=== PATIENT | male | born 1940 | race Caucasian/White ===

== ENCOUNTER → 2018-07-03 | Emergency (ER) | payer MEDICARE ==
[~2018-07-03] VITALS: Ht 167.6 cm; Wt 78.6 kg
[~2018-07-03] MED LIST: GLYB2.5T4 PO; METO25TA6 PO; OMEP20TA23 PO; OXYC10TA86 PO; PRED5TAB PO; glimepiride 1 MG tablet PO ONE; oxyCODONE SR 10mg (sust. release) tab PO ONE; pantoprazole 40mg Tablet.DR PO PRN
[2018-07-03 13:47] LABS: BASOPHILS % (AUTO) 0.3 % (0-1); EOSINOPHILS # (AUTO) 0.2 X10'3 (0-0.9); EOSINOPHILS % (AUTO) 1.8 % (0-6); HEMATOCRIT 42.8 % (42.0-52.0); HEMOGLOBIN 14.5 g/dl (14.0-17.9); LYMPHOCYTES # (AUTO) 1.1 X10'3 (1.1-4.8); MEAN CORPUSCULAR HEMOGLOBIN 31.2 PG (27.0-31.0); MEAN CORPUSCULAR VOLUME 91.9 FL (78-98); MEAN PLATELET VOLUME 7.1 FL (7.4-10.4); MONOCYTES # (AUTO) 1.1 X10'3 (0-0.9); NEUTROPHILS # (AUTO) 6.2 X10'3 (1.8-7.7); NEUTROPHILS % (AUTO) 71.9 % (42-75); PLATELET COUNT 286 X10'3 (140-440); RED BLOOD COUNT 4.66 X10'6 (4.70-6.10); RED CELL DISTRIBUTION WIDTH 14.2 % (11.5-14.5); WHITE BLOOD COUNT 8.6 X10'3 (4.5-11.0)
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
[2018-07-03 13:56] LABS: ALANINE AMINOTRANSFERASE 42 U/L (12-78); ALBUMIN 3.7 G/DL (3.4-5.0); ALBUMIN/GLOBULIN RATIO 1.2 (1.1-1.5); ALKALINE PHOSPHATASE 71 IU/L (46-116); ANION GAP 10 (8-16); ASPARTATE AMINO TRANSFERASE 34 U/L (10-37); BILIRUBIN,TOTAL 0.8 MG/DL (0.1-1.0); BLOOD UREA NITROGEN 8 MG/DL (7-18); BUN/CREATININE RATIO 11.4 (5.4-32.0); CALCIUM 9.2 MG/DL (8.5-10.1); CHLORIDE 101 MMOL/L (99-107); ETHANOL < 0.010 GM/DL (0.0-0.010); GLUCOSE 143 MG/DL (70-104); POTASSIUM 3.4 MMOL/L (3.5-5.1); SODIUM 139 MMOL/L (135-145); TOTAL CARBON DIOXIDE 28.5 MMOL/L (24-32); TOTAL PROTEIN 6.7 G/DL (6.4-8.2); eGFR > 90 ML/MIN
[2018-07-03 14:47] LABS: URINE AMPHETAMINE SCREEN NEGATIVE (Neg); URINE BARBITUATE SCREEN NEGATIVE (Neg); URINE BENZODIAZEPINES SCREEN NEGATIVE (Neg); URINE CANNABINOID SCREEN NEGATIVE (Neg); URINE COCAINE SCREEN NEGATIVE (Neg); URINE METHADONE SCREEN NEGATIVE (Neg); URINE OPIATE SCREEN POSITIVE (Neg); URINE PHENCYCLIDINE SCREEN NEGATIVE (Neg)
--- NOTE | 2018-07-03 15:57 | NUR ---
TELEPSYCH CONSULT INITIATED
--- NOTE | 2018-07-03 17:04 | NUR ---
PT CURRENTLY SLEEPING. NO SIGNS OF DISTRESS NOTED. RESP EVEN/UNLABORED.
--- NOTE | 2018-07-03 17:49 | NUR ---
Nursing Note: Pt transferred to bed 20 at 1740. Pt in green scrubs. Pt currently speaking with telepsych Dr. Green S&S of distress, will continue to monitor.
--- NOTE | 2018-07-03 18:11 | NUR ---
Nursing Note: Telepsych complete, awaiting report. Pt laying in bed with eyes closed, respirations even and unlabored, no S&S of distress, will continue to monitor.
--- NOTE | 2018-07-04 02:44 | NUR ---
pt awake c/o back pain. oxycodone one tab given.
--- NOTE | 2018-07-04 03:40 | NUR ---
pt awake, resting quietly in bed.
[2018-07-04] MEDS: oxyCODONE SR 10mg (sust. release) tab PO SCH ×3 (07:51→20:25)
[2018-07-04] MEDS: metoprolol tartrate 25mg tablet PO SCH ×2 (07:51→20:25)
[2018-07-04] MEDS: predniSONE 5mg tablet PO SCH (07:51)
--- NOTE | 2018-07-04 09:52 | NUR ---
Pt. woke up easily to take meds and eat breakfast.
--- NOTE | 2018-07-04 11:32 | NUR ---
Pt. lying supine in bed with even and unlabored respirations.
--- NOTE | 2018-07-04 14:44 | NUR ---
Pt. given a walker to use while here.
--- NOTE | 2018-07-04 20:00 | NUR ---
pt denies sucidial ideation. pt denies homicidial ideation. pt denies hallucinations. will continue to monitor.
--- NOTE | 2018-07-04 23:57 | NUR ---
pt resting, eyes closed. no signs of distress. will continue to monitor.
--- NOTE | 2018-07-05 00:34 | NUR ---
Pt awake, moderately confused and paranoid AEB his saying, "there are people out there trying to get me. Am I safe? Do they know I'm here?" Reassurance and reorientation provided. Pt redirected to bed.
--- NOTE | 2018-07-05 02:10 | NUR ---
pt getting out of bed. wanting to use urinal. using urinal at the side of bed. no signs of distress.
--- NOTE | 2018-07-05 02:36 | NUR ---
packet faxed to [facility]
--- NOTE | 2018-07-05 04:58 | NUR ---
pt resting in bed, eyes closed. unlabored and even breathing. will continue to monitor.
--- NOTE | 2018-07-05 07:27 | NUR ---
Pt. lying supine in bed with even and unlabored respirations with eyes closed.
[2018-07-05] MEDS: oxyCODONE SR 10mg (sust. release) tab PO SCH ×3 (07:46→20:13)
[2018-07-05] MEDS: metoprolol tartrate 25mg tablet PO SCH ×2 (07:47→20:12)
[2018-07-05] MEDS: predniSONE 5mg tablet PO SCH (07:47)
--- NOTE | 2018-07-05 08:15 | NUR ---
RN obtained order from Dr. Adair for Zyprexa 2.5mg PO QHS as was recommended by tele psych consult.
--- NOTE | 2018-07-05 11:13 | NUR ---
Pt. states he takes Glyburide daily. BG 180 right now. Med. added to med. rec. Will ask TREY SANDOVAL to continue med. while pt's here.
--- NOTE | 2018-07-05 13:05 | NUR ---
Son just visited pt. for a short time.
--- NOTE | 2018-07-05 18:23 | NUR ---
Patient is sitting on side of bed eating dinner w/o problem. I will continue to monitor.
[2018-07-05] MEDS: OLANZapine 2.5MG tablet PO SCH (20:13)
[2018-07-06] MEDS: oxyCODONE SR 10mg (sust. release) tab PO SCH ×3 (07:38→20:14)
[2018-07-06] MEDS: glimepiride 1 MG tablet PO SCH (07:39)
[2018-07-06] MEDS: predniSONE 5mg tablet PO SCH (07:40)
[2018-07-06] MEDS: metoprolol tartrate 25mg tablet PO SCH ×2 (07:42→19:18)
--- NOTE | 2018-07-06 18:50 | NUR ---
GAVE REPORT TO MADHAVI FRANKLIN
--- NOTE | 2018-07-06 19:52 | NUR ---
PATIENT RESTING IN BED AT THIS TIME. PATIENT AMBULATES WITH FRONT WHEELED WALKER. PATIENT HAS URINAL AT BEDSIDE. PATIENT EATING BANANA. PATIENT GIVEN 2000 DOSE OF METOPROLOL.
[2018-07-06] MEDS: OLANZapine 2.5MG tablet PO SCH (20:14)
--- NOTE | 2018-07-06 23:17 | NUR ---
Patient sleeping in bed. No concerns or needs at this time. Will continue to monitor.
--- NOTE | 2018-07-07 01:01 | NUR ---
Patient sleeping. No new needs or concerns. Will continue to monitor.
--- NOTE | 2018-07-07 02:47 | NUR ---
Patient sleeping. No changes.
--- NOTE | 2018-07-07 05:15 | NUR ---
Patient sleeping. No changes.
[2018-07-07] MEDS: glimepiride 1 MG tablet PO SCH (08:11)
[2018-07-07] MEDS: predniSONE 5mg tablet PO SCH (08:11)
[2018-07-07] MEDS: metoprolol tartrate 25mg tablet PO SCH ×2 (08:11→20:05)
[2018-07-07] MEDS: oxyCODONE SR 10mg (sust. release) tab PO SCH ×3 (08:11→20:05)
--- NOTE | 2018-07-07 08:14 | NUR ---
PT IS SITTING UP AT BEDSIDE EATING BREAKFAST, PT MEDICATED WITH MORNING MEDICATIONS PER ORDERES, FIRST MEDICATED PT WITH OXYCONTIN 10 MG, SHOWED PT UNOPENED PACKAGE OF OXYCONTIN AND OPENED MEDICATION IN FRONT OF PT PT BELIEVES HE HAS NOT BEEN GETTING THIS MEDICATION PREVIOULSY.
--- NOTE | 2018-07-07 09:30 | NUR ---
PT SLEEPING, RESPIRATIONS SPONTANEOUS, EVEN AND UNLABORED, NO S/S OF DISTRESS, DISCOMFORT, OR AGITATION AT THIS TIME
--- NOTE | 2018-07-07 10:54 | NUR ---
PT SISTER IS AT BEDSIDE NOW VISITING. PT GIVEN NEW SCRUB OUTFIT PER REQUEST, PT TO CHANGE AFTER DONE VISITING WITH SISTER
--- NOTE | 2018-07-07 12:33 | NUR ---
RELIEVING RN FOR LUNCH, PT IS RESTING QUIETLY ON BED, CALM AND COOPERATIVE, EMPTIED URINAL 500ML OF YELLOW URINE
--- NOTE | 2018-07-07 14:30 | NUR ---
PT SLEEPING, RESPIRATIONS SPONTANEOUS, EVEN AND UNLABORED, NO S/S OF DISTRESS, DISCOMFORT, OR AGITATION AT THIS TIME
--- NOTE | 2018-07-07 16:09 | NUR ---
PT AWAKE ASKED FOR PHONE TO BE PLACED IN ROOM, PLACED PHONE IN ROOM, ALSO MEDICATED PT FOR PAIN PER ORDERS OXYCONTIN 10 MG
[2018-07-07 17:14] VITALS: BP_DIAS 81
--- NOTE | 2018-07-07 18:31 | NUR ---
Patient is A&Ox3, SO and is appropriate at this time. He sitting on side of bed eating dinner w/o problem, I will continue to monitor.
[2018-07-07 20:05] VITALS: BP_SYST 155
[2018-07-07] MEDS: OLANZapine 2.5MG tablet PO SCH (20:05)
== END ==
LOC: ER 13:18
DX: F29 Unspecified psychosis not due to a substance or known physiological condition (principal); F22 Delusional disorders; R45.851 Suicidal ideations; F32.9 Major depressive disorder, single episode, unspecified; I10 Essential (primary) hypertension; K21.9 Gastro-esophageal reflux disease without esophagitis; E11.9 Type 2 diabetes mellitus without complications; Z98.61 Coronary angioplasty status; Z79.899 Other long term (current) drug therapy
CPT/HCPCS: 36415; 80053; 80305; 80320; 82948; 85025; 99285; J7512

== ENCOUNTER 2018-07-09 11:00 | Inpatient (IN) | payer MEDICARE, OTHER ==
[~2018-07-09] VITALS: Ht 162.6 cm; Wt 77.4 kg
[~2018-07-09 11:00] MED LIST changes: -glimepiride 1 MG tablet PO ONE; -oxyCODONE SR 10mg (sust. release) tab PO ONE; -pantoprazole 40mg Tablet.DR PO PRN
[2018-07-09] MEDS ORDERED: OLAN2.5T3 PO (11:49)
[2018-07-09] MEDS ORDERED: tuberculin, purif. prot. deriv. 5 units/0.1ml ID ONE (11:50)
[2018-07-09] MEDS ORDERED: LORazepam 1 MG tablet PO PRN ×2 (11:50)
[2018-07-09] MEDS ORDERED: magnesium hydroxide 30ml (MOM) UD suspension PO PRN (11:50)
[2018-07-09] MEDS ORDERED: acetaminophen 325mg tablet PO PRN ×2 (11:50)
[2018-07-09] MEDS ORDERED: haloperidol 5mg tablet PO PRN (11:50)
[2018-07-09] MEDS ORDERED: mag hydrox/Alum hydrox/simeth 30ml oral suspension PO PRN (11:50)
[2018-07-09] MEDS ORDERED: diphenhydrAMINE 25mg capsule PO PRN (12:05)
--- NOTE | 2018-07-09 15:24 | NUR ---
Admit note: Pt [facility] by Dr Hanks at 1245 for Depression and suicidal ideation. Pt has history of DM II, heart stent, GERD, depression, paranoia. Pt oriented to the unit. Pts belongings inventoried. Pt admitted on 5150 for danger to self. Pt had made statements of self harm. Pt called the suicide hotline. Pt uses a walker to ambulate.
[2018-07-09] MEDS: oxyCODONE SR 10mg (sust. release) tab PO SCH ×2 (15:42→21:31)
[2018-07-09 16:33] VITALS: BP 146/86
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
[2018-07-09 20:00] VITALS: BP 117/74
[2018-07-09] MEDS ORDERED: OLANZapine 2.5MG tablet PO SCH (21:00)
[2018-07-09] MEDS: OLANZapine 2.5MG tablet PO SCH (21:32)
[2018-07-09] MEDS: metoprolol tartrate 25mg tablet PO SCH (21:32)
--- NOTE | 2018-07-10 00:34 | NUR ---
Nursing Progress Note Legal hold: 5150 Danger to self Client on voluntary/involuntary status for GD/DTS/DTO: DTS Report received from nurse with use of SBAR: MADHAVI Guadalupe Why are they here: The patient was found to be having delusional thoughts about family members trying to kill him, breaking into his house and beating on the wall outside his home. He called [place] [employer] multiple times per day and also the [place] hotline stating he was suicidal. Assessment What has happened this shift: Patient is in his room in bed at the change of shift. He agrees to a 1:1 assessment at his bedside. He confirms feelings of depression and anxiety. He states some of the anxiety today is from moving to the unit and getting used to it. He denies SI/HI, AH/VH. However when asked how he liked the unit and if he felt safe here patient stated "It's nice, I like all the cartoon characters on the ceiling, it gives me something to look at." Patient remained in his room the rest of the shift. He was compliant with all his evening medications. S/I, H/I: Denies A/VH: Denies Sleep: Currently sleeping, see sleep assessment ADL's: Needs some help/setup Group attendance: No groups this shift Were meds taken: Yes Any med S/E: None Mental Status Exam Appearance: Disheveled, wearing green scrubs, un-groomed hair Eye contact: Good Behavior: Cooperative Speech: Normal rate, volume, rhythm Mood: Depressed Affect: Mild anxiety Thought process: Circumstantial Thought Content: Adjusting to new unit, delusions about cartoon characters being on the ceiling Cognition:A&Ox3 Insight: Poor Judgment: Poor Interventions PRN's used: None Therapeutic interventions: 1:1 assessment with patient, provided active listening, maintained a safe and therapeutic environment to help establish rapport. Monitored patients behavior. Educated patient on medications and medication regimen. Monitored for side effects of medications. Maintained Q 15 minute checks for safety. Restraints/seclusion/emergency medication:None Justification of Continued Inpatient Treatment: Patient has recent suicidal ideation and made numerous calls to [place] hotline stating depression and wanting to harm self. Needs therapeutic environment and medication adjustments to stabilize current crisis.
[2018-07-10] MEDS ORDERED: pantoprazole 40mg Tablet.DR PO PRN (07:30)
[2018-07-10 07:38] LABS: HEMOGLOBIN A1C 6.8 % (4.5-6.2)
[2018-07-10 08:15] VITALS: BP 96/59
[2018-07-10 08:16] VITALS: BP 104/66
[2018-07-10] MEDS: glimepiride 1 MG tablet PO SCH (08:24)
[2018-07-10] MEDS: predniSONE 5mg tablet PO SCH (08:24)
[2018-07-10] MEDS: metoprolol tartrate 25mg tablet PO SCH ×2 (08:24→20:34)
[2018-07-10] MEDS: oxyCODONE SR 10mg (sust. release) tab PO SCH ×3 (08:24→20:32)
--- NOTE | 2018-07-10 17:17 | NUR ---
Nursing Progress Note Legal hold: 5150 danger to self Client on voluntary/involuntary status for GD/DTS/DTO: DTS Report received from Zora with use of SBAR Why are they here: The patient was found to be having delusional thoughts about family members trying to kill him, breaking into his house and beating on the wall outside his home. He called [place] [employer] multiple times per day and also the [place] hotline stating he was suicidal. Assessment What has happened this shift: Patient was up to breakfast, took all medications and is eating well. Depressed mood with a constricted affect. Multiple phone calls from family who is supportive. He has a delusion that squatters are living in his home and a family friend is trying to poison him. He states he feels safe here but can't articulate why he is here. Tangential thoughts: The Landlord calls about the rent, Itzel Esqueda is trying to help multiple families with housing near him in [facility] , he lived in [place] and got dysentery and a DDT exposure, saw [employer] and also looked up into the sun and saw the [employer]. Denies suicidal thoughts. He was able to take a shower himself today and was up and about on unit. S/I, H/I: Denies A/VH: Denies Sleep: Napped ADL's: Needs some help/setup Group attendance: Yes Were meds taken: Yes Any med S/E: None Mental Status Exam Appearance: disheveled Eye contact: Poor Behavior: Cooperative Speech: Clear and soft Mood: Depressed Affect: Constricted Thought process: Circumstantial Thought Content: paranoid delusion, tangential Cognition:A&Ox3 Insight: Poor Judgment: Poor Interventions PRN's used: None Therapeutic interventions: 1:1 assessment, q15m safety checks, medications as ordered, reassurance, orientation to unit. Restraints/seclusion/emergency medication:None Justification of Continued Inpatient Treatment: Patient has recent suicidal ideation and made numerous calls to [place] hotline stating depression and wanting to harm self. Needs therapeutic environment and medication adjustments to stabilize current crisis.
--- NOTE | 2018-07-10 17:58 | NUR ---
Abnormal lab: Lab called. Pt's nasal swab found pt to have MRSA. Pt notified and given instructions on hand washing to prevent infections. Pt states understanding.
[2018-07-10 20:02] VITALS: BP 129/80
[2018-07-10] MEDS: OLANZapine 2.5MG tablet PO SCH (20:31)
--- NOTE | 2018-07-11 00:34 | NUR ---
RN PROGRESS NOTE: Legal hold: 5150. Client on involuntary status for DTS. Report received from nurse with use of SBAR: MADHAVI Guadalupe Why are they here: The patient was reportedly having suicidal and delusional thoughts. Per [employer], the patient repeatedly called the [employer] hotline stating he's suicidal. He was also calling 911 many times. [employer] brought him here to the ER for help with his depression and delusions. He was paranoid and thinking that his family members are trying to poison him, so they can take his house from him. Assessment: What has happened this shift: The patient was found in his room for 1:1. He agreed to assessment at bedside. The patient reports that he believes that his family members are trying to poison him to get rid of him He believes that they are trying to get his house. He also states he was hearing banging, "I thought someone was trying to break into my room. I gotta get my thinking figured out, I'm a little paranoid." The patient admits to making statements of suicidal ideation, but is now denying SI. He reports that he feels safe here, "good mood, good food, and good conversation." The patient had a visitor this evening. After she left, he went to bed. On the way to bed, he asked this nurse, "how long am I going to be here? I have bills to pay." S/I, H/I: Denies A/VH: Denies Sleep: States that he sleeps good ADL's: Mostly independent, needs setup help and prompting. Group attendance: No groups this shift Were meds taken: Yes. Any med S/E: None noted. Mental Status Exam: Appearance: Disheveled, wearing black sweatshirt and green scrubs, un-groomed hair, unshaved. Eye contact: Good Behavior: Cooperative, wnl. Speech: Normal rate, volume, rhythm Mood: Depressed Affect: Blunted. Thought process: Circumstantial Thought Content: Preoccupied with getting home. Cognition:A&Ox3 Insight: Poor Judgment: Poor Interventions: PRN's used: None. Therapeutic interventions: 1:1 assessment with patient, provided active listening, maintained a safe and therapeutic environment to help establish rapport. Monitored patients behavior. Educated patient on medications and medication regimen. Monitored for side effects of medications. Maintained Q 15 minute checks for safety. Restraints/seclusion/emergency medication: None. Justification of Continued Inpatient Treatment: Patient has recent suicidal ideation and made numerous calls to [place] hot[place] stating depression and wanting to harm self. Needs therapeutic environment and medication adjustments to stabilize current crisis.
[2018-07-11 08:00] VITALS: BP 136/87
[2018-07-11] MEDS: glimepiride 1 MG tablet PO SCH (08:33)
[2018-07-11] MEDS: atorvastatin 10mg tablet PO SCH (08:33)
[2018-07-11] MEDS: lisinopril 2.5mg tablet PO SCH (08:33)
[2018-07-11] MEDS: metoprolol tartrate 25mg tablet PO SCH ×2 (08:33→20:39)
[2018-07-11] MEDS: oxyCODONE SR 10mg (sust. release) tab PO SCH ×3 (08:34→20:39)
[2018-07-11] MEDS: aspirin 81mg tab.chew PO SCH (08:35)
[2018-07-11] MEDS: predniSONE 5mg tablet PO SCH (09:00)
--- NOTE | 2018-07-11 16:50 | NUR ---
NURSING PROGRESS NOTE Legal hold: 5150 DTS Client on involuntary status Report received from MADHAVI Miller with use of SBAR Why are they here: The patient was found to be having delusional thoughts about family members trying to kill him, breaking into his house and beating on the wall outside his home. He called [place] [employer] multiple times per day and also the [place] hotline stating he was suicidal. Assessment What happened this shift? Pt up for all meals and medication compliant. He engages w/peers during meals and groups. He took a shower. Napped on and off throughout the day. S/I, H/I: Denies A/VH: Denies Sleep: Napped ADL's: Some assistance Group attendance: Y Were Meds taken: Y Any med S/E: None noted or reported Mental Status Exam Appearance: Showered Eye contact: Poor Behavior: Cooperative Speech: Clear and soft Mood: Depressed Affect: Constricted Thought process: linear Thought Content: goal-directed Cognition:A&Ox3 Insight: Poor Judgment: Poor Interventions PRN's used: Tylenol Therapeutic interventions: 1:1 assessment with patient, provided therapeutic communication and active listening, maintained a safe and therapeutic environment. Monitored patients behavior. Educated patient on medications and medication regimen. Monitored for side effects of medications. Encouraged groups and independent ADL's. Monitored Q 15 minute checks for safety. Restraints/seclusion/emergency medication:None Justification of Continued Inpatient Treatment: Patient has recent suicidal ideation and made numerous calls to [place] hotline stating depression and wanting to harm self. Needs therapeutic environment and medication adjustments to stabilize current crisis.
[2018-07-11 20:00] VITALS: BP 103/61
[2018-07-11] MEDS: OLANZapine 2.5MG tablet PO SCH (20:39)
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
[2018-07-12] MEDS: glimepiride 1 MG tablet PO SCH (07:33)
[2018-07-12] MEDS: atorvastatin 10mg tablet PO SCH (07:34)
[2018-07-12] MEDS: metoprolol tartrate 25mg tablet PO SCH ×2 (07:34→20:39)
[2018-07-12] MEDS: oxyCODONE SR 10mg (sust. release) tab PO SCH ×3 (07:34→20:39)
[2018-07-12] MEDS: lisinopril 2.5mg tablet PO SCH (07:35)
[2018-07-12 07:57] VITALS: BP 124/68
[2018-07-12] MEDS: aspirin 81mg tab.chew PO SCH (08:47)
[2018-07-12] MEDS: predniSONE 5mg tablet PO SCH (09:13)
--- NOTE | 2018-07-12 14:26 | NUR ---
NURSING PROGRESS NOTE Legal hold: Voluntary Client on voluntary status Report received from MADHAVI Miller with use of SBAR Why are they here: The patient was found to be having delusional thoughts about family members trying to kill him, breaking into his house and beating on the wall outside his home. He called [place] [employer] multiple times per day and also the [place] hot line stating he was suicidal. Assessment What happened this shift? Pt up for meals. Attended and participated in both groups. He signed in voluntarily. He discussed the desire to live in [place] and be able to get to his medical appointments. S/I, H/I: Denies A/VH: Denies Sleep: Sleeps during activities ADL's: Some assistance Group attendance: Y Were Meds taken: Y Any med S/E: None noted or reported Mental Status Exam Appearance: Remained in same clothing Eye contact: Poor Behavior: Cooperative Speech: Clear and soft Mood: Depressed Affect: Constricted Thought process: linear Thought Content: goal-directed Cognition:A&Ox3 Insight: Poor Judgment: Poor Interventions PRN's used: Tylenol Therapeutic interventions: 1:1 assessment with patient, provided therapeutic communication and active listening, maintained a safe and therapeutic environment. Monitored patients behavior. Educated patient on medications and medication regimen. Monitored for side effects of medications. Encouraged groups and independent ADL's. Monitored Q 15 minute checks for safety. Restraints/seclusion/emergency medication:None Justification of Continued Inpatient Treatment: Patient has recent suicidal ideation and made numerous calls to [place] hot line stating depression and wanting to harm self. Needs therapeutic environment and medication adjustments to stabilize current crisis.
[2018-07-12 20:00] VITALS: BP 103/67
[2018-07-12] MEDS: OLANZapine 2.5MG tablet PO SCH (20:38)
--- NOTE | 2018-07-12 21:57 | NUR ---
RN PROGRESS NOTE: Legal hold: 5150. Client on involuntary status for DTS. Report received from nurse with use of SBAR: MADHAVI Tipton Why are they here: The patient was reportedly having suicidal and delusional thoughts. Per [employer], the patient repeatedly called the [employer] stating he's suicidal. He was also calling 911 many times. [employer] brought him here to the ER for help with his depression and delusions. He was paranoid and thinking that his family members are trying to poison him, so they can take his house from him. Assessment: What has happened this shift: The patient was seen in his room. He was laying there waiting for his medication. He says that he's tired and going to sleep. He reports that his walker is working well. The patient states that he's doing well, "I'm just hanging out waiting for someone to find me some housing." The patient went to sleep right after HS med pass. S/I, H/I: Denies A/VH: Denies Sleep: States that he sleeps good ADL's: Mostly independent, needs setup help and prompting. Group attendance: No groups this shift Were meds taken: Yes. Any med S/E: None noted. Mental Status Exam: Appearance: Clean, unshaved, hair combed, wearing full green scrubs. Eye contact: Good Behavior: Cooperative, spent the evening in his room. Speech: Normal rate, volume, rhythm Mood: "Fair." Affect: Blunted. Thought process: Circumstantial Thought Content: Preoccupied with getting home. Cognition:A&Ox3 Insight: Poor Judgment: Poor Interventions: PRN's used: None. Therapeutic interventions: 1:1 assessment with patient, provided active listening, maintained a safe and therapeutic environment to help establish rapport. Monitored patients behavior. Educated patient on medications and medication regimen. Monitored for side effects of medications. Maintained Q 15 minute checks for safety. Restraints/seclusion/emergency medication: None. Justification of Continued Inpatient Treatment: Patient has recent suicidal ideation and made numerous calls to [email or web address] stating depression and wanting to harm self. Needs therapeutic environment and medication adjustments to stabilize current crisis.
[2018-07-13 07:33] VITALS: BP 123/64
[2018-07-13] MEDS: predniSONE 5mg tablet PO SCH (08:03)
[2018-07-13] MEDS: aspirin 81mg tab.chew PO SCH (08:03)
[2018-07-13] MEDS: atorvastatin 10mg tablet PO SCH (08:03)
[2018-07-13] MEDS: metoprolol tartrate 25mg tablet PO SCH ×2 (08:04→20:00)
[2018-07-13] MEDS: oxyCODONE SR 10mg (sust. release) tab PO SCH ×3 (08:04→21:38)
[2018-07-13] MEDS: glimepiride 1 MG tablet PO SCH (08:05)
[2018-07-13] MEDS: lisinopril 2.5mg tablet PO SCH (08:05)
--- NOTE | 2018-07-13 17:57 | NUR ---
NURSING PROGRESS NOTE Legal hold: Voluntary Client on voluntary status Report received from MADHAVI Miller with use of SBAR Why are they here: The patient was found to be having delusional thoughts about family members trying to kill him, breaking into his house and beating on the wall outside his home. He called [place] Police Dept multiple times per day and also the [place] hot line stating he was suicidal. Assessment What happened this shift: Recieved pt in bed resting w/o distress at change of shift. Cooperative and pleasant to speak with. Attended meals and groups and participated well with others and facilitators. Able to get along with roommate and have engagable conversations with him. BS at 1700 was 133. Watched other clients play a board game and enjoyed being around others. S/I, H/I: Denies A/VH: Denies Sleep: Slept 7.5 hrs last night ADL's: Some assistance Group attendance: Y Were Meds taken: Y Any med S/E: None noted or reported Mental Status Exam Appearance: Remained in same clothing Eye contact: Poor Behavior: Cooperative Speech: Clear and soft Mood: Depressed Affect: Constricted Thought process: linear Thought Content: goal-directed Cognition:A&Ox3 Insight: Poor Judgment: Poor Interventions PRN's used: Tylenol Therapeutic interventions: 1:1 assessment with patient, provided therapeutic communication and active listening, maintained a safe and therapeutic environment. Monitored patients behavior. Educated patient on medications and medication regimen. Monitored for side effects of medications. Encouraged groups and independent ADL's. Monitored Q 15 minute checks for safety. Restraints/seclusion/emergency medication:None Justification of Continued Inpatient Treatment: Patient has recent suicidal ideation and made numerous calls to [place] hot line stating depression and wanting to harm self. Needs therapeutic environment and medication adjustments to stabilize current crisis.
[2018-07-13 20:45] VITALS: BP 92/59
[2018-07-13] MEDS: OLANZapine 2.5MG tablet PO SCH (21:38)
--- NOTE | 2018-07-14 02:09 | NUR ---
NURSING PROGRESS NOTE Legal hold: Voluntary Client on voluntary status Report received from MADHAVI Kwon with use of SBAR Why are they here: The patient was found to be having delusional thoughts about family members trying to kill him, breaking into his house and beating on the wall outside his home. He called [place] Police [employer] multiple times per day and also the [place] hot line stating he was suicidal. Assessment What happened this shift: This patient was in the community room after change of shift. Patient is well oriented, he is conversing with other patients freely and smiling too. 1:1 Assessment: Patient is well oriented, he speaks clearly. Patient states he "feels a little sluggish." Patient states he has been using Neosporin on his feet and the cracks are improved. This patient laughs and is a little animated at times. Patient denies S/I, H/I, or any hallucinations. He states he is concerned about how to pay his bills as he has been unable to do so while he has been our unit. Patients granddaughter came in to visit, this patient expressed happiness about this. This patient hopes to discharge soon. This patient has been medication compliant until his [id number] medication administration which he refused and went to sleep. S/I, H/I: Denies A/VH: Denies Sleep: Sleeping well. ADL's: Some assistance Group attendance: Yes during days. Were Meds taken: Night time medications were declined. Any med S/E: None noted or reported Mental Status Exam Appearance: Remained in same clothing Eye contact: Poor Behavior: Cooperative Speech: Clear and soft Mood: Depressed Affect: Constricted Thought process: Linear Thought Content: Goal-directed Cognition: A&Ox3 Insight: Poor Judgment: Poor Interventions PRN's used: Tylenol Therapeutic interventions: 1:1 assessment with patient, provided therapeutic communication and active listening, maintained a safe and therapeutic environment. Monitored patients behavior. Educated patient on medications and medication regimen. Monitored for side effects of medications. Encouraged groups and independent ADL's. Monitored Q 15 minute checks for safety. Restraints/seclusion/emergency medication:None Justification of Continued Inpatient Treatment: Patient has recent suicidal ideation and made numerous calls to [place] hot line stating depression and wanting to harm self. Needs therapeutic environment and medication adjustments to stabilize current crisis.
[2018-07-14 08:00] VITALS: BP 127/69
[2018-07-14] MEDS: glimepiride 1 MG tablet PO SCH (08:09)
[2018-07-14] MEDS: predniSONE 5mg tablet PO SCH (08:09)
[2018-07-14] MEDS: metoprolol tartrate 25mg tablet PO SCH ×2 (08:10→20:34)
[2018-07-14] MEDS: atorvastatin 10mg tablet PO SCH (08:10)
[2018-07-14] MEDS: oxyCODONE SR 10mg (sust. release) tab PO SCH ×3 (08:10→20:33)
[2018-07-14] MEDS: lisinopril 2.5mg tablet PO SCH (08:10)
[2018-07-14] MEDS: aspirin 81mg tab.chew PO SCH (08:10)
--- NOTE | 2018-07-14 09:29 | NUR ---
1:1 DISCHARGE PLANNING SW made TC to pt's daughter, Marisol Reyes at [phone] and attempted to leave message for return contact. SW received voicemail message stating the mailbox had not been set up. SW will attempt a return contact at a later time. SPEEDY Culp
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
--- NOTE | 2018-07-14 16:30 | NUR ---
Patient has good appetite, eating well 100% PO intake of mechanical soft diet. Meeting nutrition needs. Will continue to follow per protocol. Recommend: 1. Continue mechanical soft diet 2. weekly wts Addendum: 07/14/18 at [address] Amended: Links added.
[2018-07-14 20:00] VITALS: BP 130/72
[2018-07-14] MEDS: OLANZapine 2.5MG tablet PO SCH (20:33)
--- NOTE | 2018-07-15 01:18 | NUR ---
NURSING PROGRESS NOTE Legal hold: Voluntary Client on voluntary status Report received from MADHAVI Kwon with use of SBAR Why are they here: The patient was found to be having delusional thoughts about family members trying to kill him, breaking into his house and beating on the wall outside his home. He called [place] Police [employer] multiple times per day and also the [place] hot line stating he was suicidal. Assessment What happened this shift: Patient sits in the community room and doodles on a piece of paper and watches TV. He reports feeling relaxed today and tells script writer he went to a group this morning and found it "interesting." He denies any current SI, AH, or VH. He does bring up his 's passing and talks about how it is hard being without her. 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 He jokes around with script writer and engages willingly in conversation. He makes good eye contact and smiles but overall his affect is still depressed. S/I, H/I: Denies A/VH: Denies Sleep: see sleep assessment notation ADL's: Some assistance, uses walker Group attendance: film processing shift supervisor, no groups Were Meds taken: yes Any med S/E: None observed or reported Mental Status Exam Appearance: slightly disheveled Eye contact: good Behavior: Cooperative, talkative Speech: Clear Mood: reminiscent Affect: depressed Thought process: Linear Thought Content: Goal-directed Cognition: A&Ox3 Insight: fair Judgment: fair Interventions PRN's used: none Therapeutic interventions: 1:1 assessment with patient, provided therapeutic communication and active listening, maintained a safe and therapeutic environment. Monitored patients behavior. Educated patient on medications and medication regimen. Monitored for side effects of medications. Encouraged groups and independent ADL's. Monitored Q 15 minute checks for safety. Restraints/seclusion/emergency medication:None Justification of Continued Inpatient Treatment: Patient has recent suicidal ideation and made numerous calls to [place] hot line stating depression and wanting to harm self. Needs therapeutic environment and medication adjustments to stabilize current crisis.
[2018-07-15 07:32] LABS: CHOL/HDL RATIO 2.9 (0.00-4.99); CHOLESTEROL 150 MG/DL (0-200); HDL CHOLESTEROL 52 MG/DL (35-60); LDL CHOLESTEROL 89 MG/DL (50-100); TRIGLYCERIDES 112 MG/DL (20-135)
[2018-07-15 08:00] VITALS: BP 133/78
[2018-07-15] MEDS: glimepiride 1 MG tablet PO SCH (08:06)
[2018-07-15] MEDS: aspirin 81mg tab.chew PO SCH (08:07)
[2018-07-15] MEDS: metoprolol tartrate 25mg tablet PO SCH ×2 (08:07→20:00)
[2018-07-15] MEDS: predniSONE 5mg tablet PO SCH (08:07)
[2018-07-15] MEDS: atorvastatin 10mg tablet PO SCH (08:07)
[2018-07-15] MEDS: oxyCODONE SR 10mg (sust. release) tab PO SCH ×3 (08:07→20:58)
[2018-07-15] MEDS: lisinopril 2.5mg tablet PO SCH (08:07)
--- NOTE | 2018-07-15 14:28 | NUR ---
1:1 DISCHARGE PLANNING YUMIKO met with pt, who reports he would like to move to an assisted living environment and release his wallet/bankcards to his granddaughter for his bills to be paid while in hospital. YUMIKO agreed to provide resource information to pt this day. YUMIKO made TC to [facility] to schedule primary care appointment with Dr. Colvin. YUMIKO learned pt has not attended to his primary care recommendations for approximately one year. Pt was scheduled for labs in October 2017 and to return four months after his visit in August 2017; neither have occurred. YUMIKO requested a provider to provider call from Dr. Colvin to Dr. Hanks. YUMIKO scheduled pt to attend primary care with Dr. Colvin on 08/25/2018 at 8:00am. YUMIKO made TC to [facility] unit at [phone], to request entry to services for pt. YUMIKO instructed to contact clinic w/ exact date of discharge so pt can be seen within five days of discharge. YUMIKO requested brokerage and linkage to social service manager case management team. YUMIKO referred to /Aeronautical Drafter Lana Farias to assist linkage to services. YUMIKO left message for Lana Farias requesting a return contact. YUMIKO provided pt with information regarding "[facility]" assisted in home care resource information and [facility] through [employer]. YUMIKO contacted [facility] in [place] to learn of resources to assist pt in moving to assisted living. YUMIKO informed the '[facility] has a three year wait list and the Assisted Living home has a five to six year wait list. SPEEDY Culp Addendum: 07/15/18 at 1615 by Ev SOL ADDITION: SW received return contact from [facility]. SW informed pt will be assigned to CELESTINA Torres for Rf Technician connection.
--- NOTE | 2018-07-15 15:49 | NUR ---
1:1 DISCHARGE PLANNING SW received TC from Dr. Colvin, who reports he has been overseeing pt care for over a year. Dr. Colvin read pt notes and identified pt has had exacerbated depression since his , however pt has never been known to have thoughts of suicide or self harm. Further, pt has never displayed sx of psychosis in the past. Per report in 2016, pt reported to be "happily , enjoying time with and grandchildren". Dr. Colvin states pt likely has increased depression due to physical health, pain and loss of his . He had no further pertinent information to provide and agrees pt would benefit from linkage to [place] Associate Director Financial Aid. Dr. Colvin states he is open to provider to provider conversation with Dr. Hanks if it would benefit pt, however has nothing pertinent to report to Dr. Hanks at this time. SPEEDY Culp
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
[2018-07-15 20:00] VITALS: BP 109/68
[2018-07-15] MEDS: OLANZapine 2.5MG tablet PO SCH (20:57)
--- NOTE | 2018-07-16 02:53 | NUR ---
NURSING PROGRESS NOTE Legal hold: Voluntary Client on voluntary status Report received from MADHAVI Guadalupe with use of SBAR Why are they here: The patient was found to be having delusional thoughts about family members trying to kill him, breaking into his house and beating on the wall outside his home. He called [place] Police Dept multiple times per day and also the [place] hot line stating he was suicidal. Assessment What happened this shift: Patient is up in rec room watching TV on shift change. [employer] Pl[employer] Consultant talks to pt for about 45 minutes. He talks about his family's history and how the Srav[place] were "the first family in [place]." He also explains his heritage and spends a few minutes talking about [place] history, [place], and [place]. He appeared to enjoy talking about this history and knew a lot of interesting information. Pt denies any current SI/HI/AH/VH. During conversation he is engaged and smiling, but when he is sitting alone, his affect becomes depressed. S/I, H/I: Denies A/VH: Denies Sleep: see sleep assessment notation ADL's: Some assistance, uses walker Group attendance: third shift lieutenant, no groups Were Meds taken: yes Any med S/E: None observed or reported Mental Status Exam Appearance: slightly disheveled Eye contact: good Behavior: Cooperative, talkative Speech: Clear Mood: reminiscent Affect: depressed to engaged Thought process: Linear Thought Content: Goal-directed Cognition: A&Ox3 Insight: fair Judgment: fair Interventions PRN's used: none Therapeutic interventions: 1:1 assessment with patient, provided therapeutic communication and active listening, maintained a safe and therapeutic environment. Monitored patients behavior. Educated patient on medications and medication regimen. Monitored for side effects of medications. Encouraged groups and independent ADL's. Monitored Q 15 minute checks for safety. Restraints/seclusion/emergency medication:None Justification of Continued Inpatient Treatment: Patient has recent suicidal ideation and made numerous calls to [place] hot line stating depression and wanting to harm self. Needs therapeutic environment and medication adjustments to stabilize current crisis.
[2018-07-16 07:50] VITALS: BP 127/61
[2018-07-16] MEDS: metoprolol tartrate 25mg tablet PO SCH ×2 (08:01→21:33)
[2018-07-16] MEDS: aspirin 81mg tab.chew PO SCH (08:01)
[2018-07-16] MEDS: oxyCODONE SR 10mg (sust. release) tab PO SCH ×3 (08:01→21:32)
[2018-07-16] MEDS: atorvastatin 10mg tablet PO SCH (08:01)
[2018-07-16] MEDS: lisinopril 2.5mg tablet PO SCH (08:01)
[2018-07-16] MEDS: predniSONE 5mg tablet PO SCH (08:01)
[2018-07-16] MEDS: glimepiride 1 MG tablet PO SCH (08:01)
--- NOTE | 2018-07-16 12:27 | NUR ---
1:1 DISCHARGE PLANNING YUMIKO contacted by [facility], who report pt has been accepted and can be placed in the facility on 07/19/2018. YUMIKO contacted [facility] to inform of transition and need for transportation, while providing update. [facility] SPEEDY Culp
--- NOTE | 2018-07-16 16:59 | NUR ---
NURSING PROGRESS NOTE Legal hold: Voluntary Client on voluntary status Report received from MADHAVI Contreras with use of SBAR Why are they here: The patient was found to be having delusional thoughts about family members trying to kill him, breaking into his house and beating on the wall outside his home. He called [place] Police [employer] multiple times per day and also the [place] hot line stating he was suicidal. Assessment What happened this shift: The patient was asleep at change of shift. He participates fully in program. He is polite and kind to others. He is med compliant, attends groups and all meals. He and his roommate had a very long conversation in their room this afternoon. He is bright when talking with others and when alone has a blunted affect. Depressed mood. Reminisces about the past. Per SW he has been accepted at the [facility] and will discharge on Thursday. Denies SI,AH and no delusional thoughts noted. S/I, H/I: Denies A/VH: Denies Sleep: Napped ADL's: Some assistance, uses walker Group attendance: Yes Were Meds taken: yes Any med S/E: None observed or reported Mental Status Exam Appearance: slightly disheveled Eye contact: good Behavior: Cooperative, talkative Speech: Clear Mood: reminiscent / depressed Affect: blunted Thought process: Linear Thought Content: Goal-directed Cognition: A&Ox3 Insight: fair Judgment: fair Interventions PRN's used: none Therapeutic interventions: 1:1 assessment with patient, provided therapeutic communication and active listening, maintained a safe and therapeutic environment. Monitored patients behavior. Educated patient on medications and medication regimen. Monitored for side effects of medications. Encouraged groups and independent ADL's. Monitored Q 15 minute checks for safety. Restraints/seclusion/emergency medication:None Justification of Continued Inpatient Treatment: Patient has recent suicidal ideation and made numerous calls to [place] hot line stating depression and wanting to harm self. Needs therapeutic environment and medication adjustments to stabilize current crisis.
[2018-07-16 20:00] VITALS: BP 138/87
[2018-07-16] MEDS: OLANZapine 2.5MG tablet PO SCH (21:32)
--- NOTE | 2018-07-17 00:23 | NUR ---
NURSING PROGRESS NOTE Legal hold: Voluntary Client on voluntary status Report received from MADHAVI Guadalupe with use of SBAR Why are they here: The patient was found to be having delusional thoughts about family members trying to kill him, breaking into his house and beating on the wall outside his home. He called [place] Police Dept multiple times per day and also the [place] hot line stating he was suicidal. Assessment What happened this shift: Patient walks the halls and looks at framed pictures of mountains and garcia at shift change. Account Services Analyst stands and talks with patient for approx 10 minutes about the outdoors. He then moves to the community room and sits down to talk. He points out a painting that he did and explains the colors he picked and why. He makes good eye contact and seems to enjoy talking. He denies any SI/HI/AH/VH. He says that he did not sleep well last night and is feeling tired today. He walks to his room and sits up in bed for a few minutes around 2100 and falls asleep. S/I, H/I: Denies A/VH: Denies Sleep: see sleep assessment notation ADL's: Some assistance, uses walker Group attendance: gunsmith apprentice, no groups Were Meds taken: yes Any med S/E: None observed or reported Mental Status Exam Appearance: slightly disheveled Eye contact: good Behavior: Cooperative, talkative Speech: Clear Mood: reminiscent Affect: depressed to engaged Thought process: Linear Thought Content: Goal-directed Cognition: A&Ox3 Insight: fair Judgment: fair Interventions PRN's used: none Therapeutic interventions: 1:1 assessment with patient, provided therapeutic communication and active listening, maintained a safe and therapeutic environment. Monitored patients behavior. Educated patient on medications and medication regimen. Monitored for side effects of medications. Encouraged groups and independent ADL's. Monitored Q 15 minute checks for safety. Restraints/seclusion/emergency medication:None Justification of Continued Inpatient Treatment: Patient has recent suicidal ideation and made numerous calls to [place] hot line stating depression and wanting to harm self. Needs therapeutic environment and medication adjustments to stabilize current crisis.
[2018-07-17] MEDS: atorvastatin 10mg tablet PO SCH (07:57)
[2018-07-17] MEDS: lisinopril 2.5mg tablet PO SCH (07:58)
[2018-07-17] MEDS: metoprolol tartrate 25mg tablet PO SCH ×2 (07:58→20:27)
[2018-07-17] MEDS: glimepiride 1 MG tablet PO SCH (07:58)
[2018-07-17] MEDS: oxyCODONE SR 10mg (sust. release) tab PO SCH ×3 (07:58→20:25)
[2018-07-17] MEDS: aspirin 81mg tab.chew PO SCH (07:58)
[2018-07-17] MEDS: predniSONE 5mg tablet PO SCH (07:58)
[2018-07-17 08:00] VITALS: BP 159/75
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
[2018-07-17 20:00] VITALS: BP 137/83
[2018-07-17] MEDS: OLANZapine 2.5MG tablet PO SCH (20:25)
--- NOTE | 2018-07-17 23:40 | NUR ---
NURSING PROGRESS NOTE Legal hold: Voluntary Client on voluntary status Report received from Doyle HENDRICKSON with use of SBAR Why are they here: The patient was found to be having delusional thoughts about family members trying to kill him, breaking into his house and beating on the wall outside his home. He called [place] [employer] multiple times per day and also the [place] Seesearch line stating he was suicidal. Assessment What happened this shift: Received patient awake in the room interacting with peers appropriately. Patient continues to endorse delusion related to being poisoned by family; though, he did not offer the information freely, but it came out when questioned. Patient stated his depression was feeling much better and was smiling and laughing with staff and peers. Patient up for snacks and then went to his room and fell asleep around 2230. S/I, H/I: Denies A/VH: Denies Sleep: Sleeping well. ADL's: Some assistance Group attendance: Yes during days. Were Meds taken: Night time medications were declined. Any med S/E: None noted or reported Mental Status Exam Appearance: Remained in same clothing Eye contact: Poor Behavior: Cooperative Speech: Clear and soft Mood: Depressed Affect: Constricted Thought process: Linear Thought Content: Goal-directed Cognition: A&Ox3 Insight: Poor Judgment: Poor Interventions PRN's used: None Therapeutic interventions: 1:1 assessment with patient, provided therapeutic communication and active listening, maintained a safe and therapeutic environment. Monitored patients behavior. Educated patient on medications and medication regimen. Monitored for side effects of medications. Encouraged groups and independent ADL's. Monitored Q 15 minute checks for safety. Restraints/seclusion/emergency medication:None Justification of Continued Inpatient Treatment: Patient has recent suicidal ideation and made numerous calls to [place] hot line stating depression and wanting to harm self. Needs therapeutic environment and medication adjustments to stabilize current crisis.
[2018-07-18] MEDS: glimepiride 1 MG tablet PO SCH (07:42)
[2018-07-18] MEDS: oxyCODONE SR 10mg (sust. release) tab PO SCH ×3 (07:43→20:09)
[2018-07-18] MEDS: lisinopril 2.5mg tablet PO SCH (07:43)
[2018-07-18] MEDS: atorvastatin 10mg tablet PO SCH (07:43)
[2018-07-18] MEDS: aspirin 81mg tab.chew PO SCH (07:43)
[2018-07-18] MEDS: metoprolol tartrate 25mg tablet PO SCH ×2 (07:47→20:09)
[2018-07-18 08:00] VITALS: BP 126/61
[2018-07-18] MEDS: predniSONE 5mg tablet PO SCH (09:15)
--- NOTE | 2018-07-18 17:22 | NUR ---
NURSING PROGRESS NOTE Legal hold: Voluntary Client on voluntary status Report received from MADHAVI Goldstein with use of SBAR Why are they here: The patient was found to be having delusional thoughts about family members trying to kill him, breaking into his house and beating on the wall outside his home. He called [place] Police [employer] multiple times per day and also the [place] hot line stating he was suicidal. Assessment What happened this shift: Patient is observed sleeping at change of shift and in no apparent distress. Patients HR is 54 BPM. Patient is easily awoken and HR is taken manually, 72 BPM. His mood is calm and mild mannered. He takes his medications without issue. Prednisone is not available in [facility] message request sent to pharmacy. Patient gets himself up for breakfast and joins others in the group room. *prednisone administered at 0915. Patient is friendly and social, he plays games with others and remains in group room to talk. He is conversational and shares stories about his time spent in the war. *Orders received form Dr. Hanks to discontinue blood glucose monitoring. S/I, H/I: Denies A/VH: Denies Sleep: Sleeping well. ADL's: Some assistance Group attendance: Yes during days. Were Meds taken: yes Any med S/E: None noted or reported Mental Status Exam Appearance: showered, wearing baseball cap and green scrubs Eye contact: Poor Behavior: Cooperative Speech: Clear and soft Mood: Depressed Affect: Constricted Thought process: Linear Thought Content: Goal-directed Cognition: A&Ox3 Insight: Poor Judgment: Poor Interventions PRN's used: None Therapeutic interventions: 1:1 assessment, therapeutic communication that included positive feedback, medication education,Q 15 min checks. Restraints/seclusion/emergency medication:None Justification of Continued Inpatient Treatment: Patient has recent suicidal ideation and made numerous calls to [place] hot line stating depression and wanting to harm self. Continued therapeutic support and medication management needed to provide stabilization, prevent decompensation, decreasing risk to patient and readmittance.
[2018-07-18 19:35] VITALS: BP 107/54
--- NOTE | 2018-07-18 19:55 | NUR ---
pt amb from room to rec room with walker, gait steady. no complaints, sitting up in rec room at this time. Addendum: 07/18/18 at 2211 by Keara Mackenzie RN Amended: Links added.
[2018-07-18] MEDS: OLANZapine 2.5MG tablet PO SCH (20:09)
[2018-07-18] MEDS ORDERED: OXYC10TA86 PO (20:15)
[2018-07-18] MEDS ORDERED: OLAN7.5T9 PO (20:15)
[2018-07-18] MEDS ORDERED: ASPI-1265 PO (20:15)
[2018-07-18] MEDS ORDERED: GLIM1TAB46 PO (20:15)
[2018-07-18] MEDS ORDERED: OMEP20TA23 PO (20:15)
[2018-07-18] MEDS ORDERED: ATOR10TA PO (20:15)
[2018-07-18] MEDS ORDERED: LISI2.5T2 PO (20:15)
[2018-07-18 20:39] VITALS: BP 107/54
--- NOTE | 2018-07-18 23:18 | NUR ---
NURSING PROGRESS NOTE Legal hold: Voluntary Client on voluntary status Report received from MADHAVI Carreno with use of SBAR Why are they here: The patient was found to be having delusional thoughts about family members trying to kill him, breaking into his house and beating on the wall outside his home. He called [place] [employer] multiple times per day and also the [place] hot line stating he was suicidal. Assessment What happened this shift: Patient is sitting in group room, talking to others and watching tv. He is tosin and pleasant. Amb in millan to room with walker, oxycontin taken for chronic back pain. Pt ate snack with medications,, takes lopressor man hr 82. His mood is calm and mild mannered. He takes his medications without issue. Pt is diabetic, blood glucose have been normal dc'd 07/18/18. Denies any thoughts of hurteself, denies plan, no delusions. S/I, H/I: Denies A/VH: Denies Sleep: Sleeping well. ADL's: Some assistance Group attendance: Yes during days. Were Meds taken: yes Any med S/E: None noted or reported Mental Status Exam Appearance: wearing baseball cap and green scrubs Eye contact: Poor, blind in left eye Behavior: Cooperative Speech: Clear and soft Mood: Depressed, copperative, and pleasant Affect: Constricted Thought process: Linear Thought Content: Goal-directed Cognition: A&Ox3 Insight: Poor Judgment: Poor Interventions PRN's used: None Therapeutic interventions: 1:1 assessment, therapeutic communication that included positive feedback, medication education,Q 15 min checks. Restraints/seclusion/emergency medication:None Justification of Continued Inpatient Treatment: Patient has recent suicidal ideation and made numerous calls to [place] hot line stating depression and wanting to harm self. Continued therapeutic support and medication management needed to provide stabilization, prevent decompensation, decreasing risk to patient and readmittance.
[2018-07-19] MEDS: oxyCODONE SR 10mg (sust. release) tab PO SCH ×2 (07:36→13:03)
[2018-07-19] MEDS: atorvastatin 10mg tablet PO SCH (07:36)
[2018-07-19] MEDS: metoprolol tartrate 25mg tablet PO SCH (07:37)
[2018-07-19] MEDS: aspirin 81mg tab.chew PO SCH (07:37)
[2018-07-19] MEDS: lisinopril 2.5mg tablet PO SCH (07:38)
[2018-07-19] MEDS: glimepiride 1 MG tablet PO SCH (07:44)
[2018-07-19 08:00] VITALS: BP 157/65
[2018-07-19] MEDS: predniSONE 5mg tablet PO SCH (08:44)
[2018-07-19] MEDS ORDERED: OXYC10TA57 PO (11:27)
--- NOTE | 2018-07-19 15:51 | NUR ---
DISCHARGE NOTE Patient picked up by [facility] [employer] electric lift truck driver, accompanied off the unit by Michelle Montgomery. Patient transported to [facility] via [employer] electric lift truck driver. All valuables given to patient. Patient has post hospital follow up with Dr. Dhaliwal on 07/20/2018 at 1:00pm and appointment with his primary care provider, Dr. Colvin on 08/18/2018 at 8:00am. All appointments provided to patient. Patient appears content with discharge, he reports feeling better than when he was admitted. He denies wanting to harm himself or others. No acute physical or emotional distress observed. *nicotine replacement N/A. *Time of discharge 1545.
== END 2018-07-19 15:45 | disposition short-term general hospital (02) | DRG 885 ==
LOC: ADULT MH 11:00
PROVIDERS: ADMIT Psychiatry & Neurology Psychiatry; ATTEND Psychiatry & Neurology Psychiatry
DX: F29 Unspecified psychosis not due to a substance or known physiological condition (principal); M33.13 Other dermatomyositis without myopathy; R45.851 Suicidal ideations; G89.4 Chronic pain syndrome; B36.9 Superficial mycosis, unspecified; E11.9 Type 2 diabetes mellitus without complications; F41.9 Anxiety disorder, unspecified; E78.5 Hyperlipidemia, unspecified; H54.62 Unqualified visual loss, left eye, normal vision right eye; F32.9 Major depressive disorder, single episode, unspecified; E87.6 Hypokalemia; I10 Essential (primary) hypertension; I25.10 Atherosclerotic heart disease of native coronary artery without angina pectoris; K21.9 Gastro-esophageal reflux disease without esophagitis; Z79.52 Long term (current) use of systemic steroids; Z80.8 Family history of malignant neoplasm of other organs or systems; Z87.891 Personal history of nicotine dependence; Z95.5 Presence of coronary angioplasty implant and graft; Z79.899 Other long term (current) drug therapy; Z81.1 Family history of alcohol abuse and dependence
CPT/HCPCS: 36415; 80061; 82948; 83036; 83721; 84132; 84443; 87070; J7512

== ENCOUNTER 2018-07-25 16:18 | Emergency (ER) | payer MEDICARE, OTHER ==
[~2018-07-25] VITALS: Ht 167.6 cm; Wt 77.3 kg
[~2018-07-25 16:18] MED LIST changes: +ASPI-1265 PO; +ATOR10TA PO; +GLIM1TAB46 PO; -GLYB2.5T4 PO; +LISI2.5T2 PO; +OLAN7.5T9 PO; +OXYC10TA57 PO; -OXYC10TA86 PO
[2018-07-25 17:15] LABS: BASOPHILS % (AUTO) 0.4 % (0-1); EOSINOPHILS # (AUTO) 0.1 X10'3 (0-0.9); EOSINOPHILS % (AUTO) 1.1 % (0-6); HEMATOCRIT 41.5 % (42.0-52.0); HEMOGLOBIN 13.8 g/dl (14.0-17.9); LYMPHOCYTES # (AUTO) 0.9 X10'3 (1.1-4.8); LYMPHOCYTES % (AUTO) 12.7 % (21-51); MEAN CORPUSCULAR HGB CONC 33.3 g/dL (33.0-36.5); MEAN CORPUSCULAR VOLUME 93.3 FL (78-98); MEAN PLATELET VOLUME 7.7 FL (7.4-10.4); MONOCYTES # (AUTO) 0.8 X10'3 (0-0.9); MONOCYTES % (AUTO) 10.4 % (2-12); NEUTROPHILS # (AUTO) 5.5 X10'3 (1.8-7.7); NEUTROPHILS % (AUTO) 75.4 % (42-75); PLATELET COUNT 245 X10'3 (140-440); RED BLOOD COUNT 4.45 X10'6 (4.70-6.10); RED CELL DISTRIBUTION WIDTH 13.8 % (11.5-14.5); WHITE BLOOD COUNT 7.2 X10'3 (4.5-11.0)
[2018-07-25 17:19] LABS: ALANINE AMINOTRANSFERASE 31 U/L (12-78); ALBUMIN 3.5 G/DL (3.4-5.0); ALBUMIN/GLOBULIN RATIO 1.2 (1.1-1.5); ALKALINE PHOSPHATASE 82 IU/L (46-116); ANION GAP 7 (8-16); ASPARTATE AMINO TRANSFERASE 24 U/L (10-37); BILIRUBIN,TOTAL 0.8 MG/DL (0.1-1.0); BLOOD UREA NITROGEN 12 MG/DL (7-18); BUN/CREATININE RATIO 16.2 (5.4-32.0); CALCIUM 9.1 MG/DL (8.5-10.1); CHLORIDE 104 MMOL/L (99-107); CREATININE 0.74 MG/DL (0.60-1.10); ETHANOL < 0.010 GM/DL (0.0-0.010); GLUCOSE 240 MG/DL (70-104); POTASSIUM 4.3 MMOL/L (3.5-5.1); SODIUM 141 MMOL/L (135-145); TOTAL CARBON DIOXIDE 30.2 MMOL/L (24-32); TOTAL PROTEIN 6.4 G/DL (6.4-8.2); eGFR > 90 ML/MIN
[2018-07-25 18:13] LABS: URINE AMPHETAMINE SCREEN NEGATIVE (Neg); URINE BARBITUATE SCREEN NEGATIVE (Neg); URINE BENZODIAZEPINES SCREEN NEGATIVE (Neg); URINE CANNABINOID SCREEN NEGATIVE (Neg); URINE COCAINE SCREEN NEGATIVE (Neg); URINE METHADONE SCREEN NEGATIVE (Neg); URINE OPIATE SCREEN POSITIVE (Neg); URINE PHENCYCLIDINE SCREEN NEGATIVE (Neg)
--- NOTE | 2018-07-25 18:38 | NUR ---
Call to initiate telepsych at this time per PA order.
--- NOTE | 2018-07-25 20:15 | NUR ---
Packet faxed to [facility]. Spoke to Dora @ the [place] office to confirm receipt of packet.
--- NOTE | 2018-07-25 21:05 | NUR ---
Patient transferred to room 23 from room 12, via wheelchair, by MADHAVI Li
--- NOTE | 2018-07-25 21:30 | NUR ---
Ravinder from in to evaluate patient, stated he will write [id number].
--- NOTE | 2018-07-25 21:45 | NUR ---
Kavitha chaudhry in [facility] - 07/25/18 at 2254 by [facility] staff departed, took patient's personal belongings, stated they will return for patient after room cleaned.
[2018-07-26] MEDS ORDERED: OXYC10TA47 PO (04:00)
[2018-07-26] MEDS ORDERED: OXYC10TA86 PO (04:01)
--- NOTE | 2018-07-26 04:08 | NUR ---
Patient grumbling loudly. Went to bedside to speak to patient, patient stating "I've been taking the same medicine for 25 years and I haven't had it in 16 hours". Clarified medication patient referring to, stated Oxycodone for back pain. Patient reports taking Metoprolol, Prednisone, and Oxycodone, states "there might be more, I know at least those 3". Reviewed medications patient previously taking and patient unable to identify or confirm if still taking. Spoke to Dr. Esparza about med rec and patient requesting Oxycodone, stated to provide him with updated/completed med rec. Added Oxycodone to previous med rec, signed by Dr. Esparza, and faxed to pharmacy.
--- NOTE | 2018-07-26 04:10 | NUR ---
Updated patient that Oxycodone was requested, and that it will take some time for pharmacy to approve. Patient continues grumbling but verbalized understanding.
--- NOTE | 2018-07-26 04:53 | NUR ---
Oxycodone not appearing on JUL, refaxed med rec to pharmacy @2299. Called pharmacy @0926 to inform them med rec sent and to request Oxycodone be added. Per Ron "I'll get to it as soon as I can".
--- NOTE | 2018-07-26 05:02 | NUR ---
Ron from pharmacy called, stated patient was receiving 5mg Oxycodone PRN Q4 hours and has not had medication since May, stated he will talk to Dr. Esparza to resolve dosing.
[2018-07-26] MEDS: oxyCODONE IR 5mg (immed. release) tablet PO PRN ×3 (05:17→17:42)
--- NOTE | 2018-07-26 07:37 | NUR ---
Verbal order for UA from Dr. Encinas.
[2018-07-26] MEDS ORDERED: predniSONE 5mg tablet PO SCH (08:00)
[2018-07-26] MEDS ORDERED: metoprolol tartrate 25mg tablet PO SCH (08:00)
[2018-07-26 08:37] LABS: CLARITY,URINE CLEAR (Clear); COLOR,URINE YELLOW (Yellow); GLUCOSE, URINE 500 mg/dl (Neg); KETONES,URINE NEGATIVE (Neg); LEUKOCYTE ESTERASE ,URINE NEGATIVE (Neg); NITRITES, URINE NEGATIVE (Neg); OCCULT BLOOD,URINE NEGATIVE (Neg); PH,URINE 5.5 (4.8-8.0); PROTEIN,URINE NEGATIVE (Neg); UROBILINOGEN,URINE 0.2 E.U/dL (0.2-1.0)
[2018-07-26 08:39] LABS: UA COLLECTION TYPE CLN CATCH MIDSTREAM
[2018-07-26] MEDS: metoprolol tartrate 25mg tablet PO SCH ×2 (09:31→20:14)
[2018-07-26] MEDS: predniSONE 5mg tablet PO SCH (09:32)
[2018-07-27] MEDS: oxyCODONE IR 5mg (immed. release) tablet PO PRN ×3 (00:12→20:30)
--- NOTE | 2018-07-27 01:00 | NUR ---
pt resting comfortably on his back. no signs of distress. will continue to monitor.
[2018-07-27] MEDS ORDERED: ASPI-1265 PO (07:23)
[2018-07-27] MEDS ORDERED: OMEP20TA23 PO (07:23)
--- NOTE | 2018-07-27 07:37 | NUR ---
REPORT RECEIVED, CARE ASSUMED. PT IS AWAKE AND ORIENTED. TALKING TO SITTER ABOUT GOING UP TO [facility]. PT C/O BACK PAIN AND STATING HE IS NOT GETTING HIS NORMAL DOSES OF PAIN MEDICATION. REVIEWED MED REC WITH PT FOR UPDATE
[2018-07-27] MEDS: predniSONE 5mg tablet PO SCH (08:36)
[2018-07-27] MEDS: metoprolol tartrate 25mg tablet PO SCH ×2 (08:37→20:30)
--- NOTE | 2018-07-27 11:22 | NUR ---
PT HAS SISTER VISITING, SISTER BROUGHT PT A PAD FOR TOILET SEAT, NOW VISITING WITH PT.
--- NOTE | 2018-07-27 12:48 | NUR ---
pt is complaining that he can't sleep without his pain meds. pt informed that pain meds arent' due until tonight. pt back to bed to rest.
--- NOTE | 2018-07-27 15:35 | NUR ---
patient up to nurses station, ambualted wnl, returned cordless phone
--- NOTE | 2018-07-27 15:37 | NUR ---
correction: patient ambulated wnl with ffw; patient now up to bathroom
--- NOTE | 2018-07-27 17:44 | NUR ---
pt is sleeping, no s/s of distress, rr unlabored.
--- NOTE | 2018-07-27 18:18 | NUR ---
pt asked for help putting cpap mask on. pt was assissted with mask and is now resting in bed.
--- NOTE | 2018-07-27 18:29 | NUR ---
pt is up eating dinner. no complaints
--- NOTE | 2018-07-27 20:36 | NUR ---
pt asked for pain med for back pain 11/17. pt given oxycodone and assisted back to bed.
--- NOTE | 2018-07-27 22:51 | NUR ---
pt up to use restroom, then back to bed.
--- NOTE | 2018-07-28 00:13 | NUR ---
PT SLEEPING ON BACK, HEAD AT 30 DEGREES. NO S/S OF DISTRESS.
--- NOTE | 2018-07-28 01:24 | NUR ---
PATIENT UP TO USE THE RESTROOM AND BACK TO BED NO OBSERVABLE S/S OF ACUTE STRESS AT THIS TIME
--- NOTE | 2018-07-28 03:30 | NUR ---
PATIENT AWAKEN C/O CHRONIC BACK PAIN ASKING FOR HELP WITH THE PAIN, PATIENT RECIEVED PRN PAIN MEDICINE AND IS BACK IN BED COVERS ON EYES CLOSED RR EVEN UN LABORED NO OBSERVABLE S/S OF ACUTE STRESS AT THIS TIME
[2018-07-28] MEDS: oxyCODONE IR 5mg (immed. release) tablet PO PRN ×2 (03:39→09:14)
--- NOTE | 2018-07-28 05:35 | NUR ---
PATIENT LYING SUPINE IN BED COVERS ON HOB AT 45 DEGREES RR EVEN UN LABORED EYES CLOSED NO OBSERVABLE S/S OF ACUTE STRESS AT THIS TIME
--- NOTE | 2018-07-28 06:30 | NUR ---
Asleep upon change of shift observation. Color and breathing WNL. Undisturbed at this time.
--- NOTE | 2018-07-28 08:30 | NUR ---
Awakened for breakfast. Ate the majority of his food. Grumbled with staff in a good natured manner. Asked if his 72 hour hold was up yet. Uses his walker to get ambulate. Steady gait with help of walker.
[2018-07-28] MEDS: predniSONE 5mg tablet PO SCH (09:13)
[2018-07-28] MEDS: metoprolol tartrate 25mg tablet PO SCH (09:16)
--- NOTE | 2018-07-28 10:30 | NUR ---
Presenting as restless in his bed. States he is suffering from "lower back pain." Given pain medication as per doctor's order.
--- NOTE | 2018-07-28 12:30 | NUR ---
Sister of patient called to inquire if her brother was here. Informed he was. Stated she didn't want to speak to him. Just wanted to make sure he was safe. Patient napping at this time.
--- NOTE | 2018-07-28 14:40 | NUR ---
Call received from [facility] to say patient had been accepted on their unit. Patient informed and accepted this information well.
[2018-07-28] MEDS ORDERED: LORazepam 1 MG tablet PO PRN (14:55)
--- NOTE | 2018-07-28 16:00 | NUR ---
Patient discharged from the ER via wheelchair with all his personal belongings, his medication list of meds held for him in the pharmacy and his valuables inventory stub.
[2018-07-28 16:54] VITALS: BP 140/70
== END 2018-07-28 16:00 ==
LOC: ER 16:19
DX: F22 Delusional disorders (principal); M54.2 Cervicalgia; R07.9 Chest pain, unspecified; M25.552 Pain in left hip; F32.9 Major depressive disorder, single episode, unspecified; I10 Essential (primary) hypertension; K21.9 Gastro-esophageal reflux disease without esophagitis; Z79.82 Long term (current) use of aspirin; Z79.899 Other long term (current) drug therapy
CPT/HCPCS: 36415; 80053; 80305; 80320; 81003; 85025; 93005; 99285; J7512

== ENCOUNTER 2018-07-28 10:30 | Inpatient (IN) | payer MEDICARE, OTHER ==
[~2018-07-28] VITALS: Ht 167.6 cm; Wt 75.8 kg
[~2018-07-28 10:30] MED LIST changes: -ATOR10TA PO; -GLIM1TAB46 PO; -LISI2.5T2 PO; -OLAN7.5T9 PO; -OXYC10TA57 PO; +OXYC10TA86 PO
[2018-07-28] MEDS ORDERED: magnesium hydroxide 30ml (MOM) UD suspension PO PRN (16:45)
[2018-07-28] MEDS ORDERED: mag hydrox/Alum hydrox/simeth 30ml oral suspension PO PRN (16:45)
[2018-07-28] MEDS ORDERED: tuberculin, purif. prot. deriv. 5 units/0.1ml ID ONE (16:45)
[2018-07-28 17:00] VITALS: BP 145/85
--- NOTE | 2018-07-28 17:56 | NUR ---
Nursing Admit Note: Legal hold: 5150 Client on involuntary status for GD Why are they here: Patient brought to the ED (09/24/18) from the [facility] via EMS with complaints of neck and hip pain, patient fell two days prior, reporting he hit his head and hip. Patient was confused, disorganized, paranoid and delusional. He is unable to formulate a viable plan for food, clothing, or fci. Assessment What has happened this shift: Patient is admitted to the floor at 1601. He is reoriented to his surroundings. He states that he fell a few days ago and hit his head. He states that since that time he has been seeing cartoon characters on the wall, Kellen Caicedo and Prudence Bowman. He states that he has not been sleeping well reporting I haven't slept for 3days, the last few days I was up here something ended up in my cup that caused me not to sleep. S/I, H/I: denies A/VH: A/H as above Sleep: reports not sleeping well the last few nights ADL's: Independent Group attendance: N/A Were meds taken: N/A Any med S/E: N/A Mental Status Exam Appearance: disheveled Eye contact: direct Behavior: friendly, cooperative, mild paranoia Speech: soft tone, normal rate/rhythm Mood: good Affect: restricted with brightening Thought process: confused, mildly paranoid, delusional thought content Thought Content: something being put into his drink causing him to not sleep Cognition: a/o xs4 Insight: poor Judgment: poor Interventions PRN's used: none Therapeutic interventions: 1:1 therapeutic assessment, maintained safe therapeutic milieu, provided active listening with positive feedback, Q 15 min safety checks. Restraints/seclusion/emergency medication: none Justification of Continued Inpatient Treatment: Continued therapeutic support and medication adjustment needed to provide stabilization, symptom management & prevent decompensation, decreasing risk to patient and readmittance.
[2018-07-28] MEDS: HYDROcodone/acetaminophen 10/325mg tab PO PRN (19:31)
[2018-07-28 20:00] VITALS: BP 120/78
[2018-07-28] MEDS: metoprolol tartrate 25mg tablet PO SCH (20:12)
[2018-07-28] MEDS ORDERED: OLANZapine 2.5MG tablet PO SCH (21:00)
--- NOTE | 2018-07-29 01:00 | NUR ---
Nursing Progress Note: Legal hold: 5150 Client on voluntary/involuntary status for GD/DTS Report received from nurse with use of SBAR: MADHAVI Carreno Why are they here: Pt. readmitted after recently being discharged to [facility]. He was brought to the ER via EMS with c/o neck and left hip pain after a previous fall X2 days prior. Pt. reported that he fell after walking to the window at to investigate lights outside his window. He presented with paranoid delusions, stated, "I called the FBI because the people working at [facility] are working with the people that took my grandson and sister." Also pt. reported that he had been seeing cartoon characters on the floor and noble and drones/lights outside his window at night. Pt. does not like living at the [facility] and would like to go stay with his sister, but can't reach her. Assessment What has happened this shift: Pt. up sitting in the Group Room at the beginning of the shift, interacting appropriately with others. 1:1 completed, pt. denies S/I or any A/V/WILSON, states, "I haven't seen any cartoon characters for the last three hours." No delusional statements made. He is alert and oriented X4 and requests an order for Oxycodone, reports he was previously taking 10mg TID. This adjusto writer operator verified this previous dosage under Reconciled Medications, however upon discussing this with EVETTE Cee, learned that Oxycodone was changed to Otis per pt. increased confusion. This adjusto writer operator explained to pt. that the doctor would like him to try Otis instead of Oxycodone ,and pt. voiced understanding. Pt. reports chronic lower back pain, PRN Otis administered with effectiveness. Fall precautions in place and pt. able to ambulate independently with use of walker. In regard to previous fall at [facility]; pt. pupils are PERRLA, acid wash operator are equal, and gait steady. Pt. educated to use call light in order to transfer during the night and he voiced understanding. S/I, H/I: Denies, states, "If you're already hurting, then why hurt yourself?" A/VH: Denies Sleep: Pt. reports he has been having a lot of trouble sleeping per medication changes. He is in bed and asleep by approximately 2100, however he awakens at 2330 and requests to know what time it is, reports he thought it was morning and felt like he had been sleeping a long time. Pt. awakens for a second time at approximately 0100, he again reports frustration over not being able to sleep r/t medication changes. This adjusto writer operator questioned pt. about what medication changes he is referring to, and pt. reports he was relying on his Oxycodone for sleep. Pt. denies any pain at this time, and this adjusto writer operator obtained a new order from Dr. Barnard for Temazepam 15mg(MRX1), one time only. Will endorse to AM shift and continue to monitor. ADL's: Requires minimal staff assistance, and ambulates with the use of a walker per generalized body weakness. Group attendance: Attends HS snack Were meds taken: Yes Any med S/E: No Mental Status Exam Appearance: Appears older than stated age, dressed appropriately in hospital attire. Eye contact: Good Behavior: Cooperative, fatigued, and somewhat frustrated per discontinuation of Oxycontin. Speech: Soft, but WNL Mood: Pleasant Affect: Blunted, animates with conversation Thought process: Poverty of thought in regards to mental health Thought Content: Paranoid delusions and phobias. Cognition: A&O X4 Insight: Poor to fair Judgment: Poor to fair Interventions PRN's used: Otis-10 X1 and Temazepam 15mg Therapeutic interventions: Introduced self and established rapport, maintained a safe and therapeutic environment, provided medication education, ensured contract for safety, reoriented to reality as needed, monitored for behavioral changes, maintained fall precautions, and Q 15 min safety checks. Restraints/seclusion/emergency medication: N/A Justification of Continued Inpatient Treatment: Pt. requires interruption of current crisis, medication adjustments, and continued therapy.
[2018-07-29] MEDS ORDERED: temazepam 15mg capsule PO ONE (01:15)
[2018-07-29 07:12] VITALS: BP 129/82
[2018-07-29 07:37] LABS: CHOLESTEROL 137 MG/DL (0-200); HDL CHOLESTEROL 46 MG/DL (35-60); LDL CHOLESTEROL 80 MG/DL (50-100); TRIGLYCERIDES 83 MG/DL (20-135)
[2018-07-29] MEDS: pantoprazole 40mg Tablet.DR PO SCH (07:56)
[2018-07-29] MEDS: predniSONE 5mg tablet PO SCH (07:57)
[2018-07-29] MEDS: metoprolol tartrate 25mg tablet PO SCH ×2 (07:57→20:46)
[2018-07-29] MEDS: HYDROcodone/acetaminophen 10/325mg tab PO PRN ×2 (07:58→21:37)
[2018-07-29] MEDS: aspirin 81mg tab.chew PO SCH (08:17)
--- NOTE | 2018-07-29 12:13 | NUR ---
Nursing Progress Note: Legal hold: 5150 Client on voluntary/involuntary status for GD/DTS Report received from nurse with use of SBAR: MADHAVI Eason Why are they here: Pt. readmitted after recently being discharged to [facility]. He was brought to the ER via EMS with c/o neck and left hip pain after a previous fall X2 days prior. Pt. reported that he fell after walking to the window at to investigate lights outside his window. He presented with paranoid delusions, stated, "I called the FBI because the people working at [facility] are working with the people that took my grandson and sister." Also pt. reported that he had been seeing cartoon characters on the floor and noble and drones/lights outside his window at night. Pt. does not like living at the [facility] and would like to go stay with his sister, but can't reach her. Assessment What has happened this shift: The patient was asleep at change of shift. He is up to all meals and groups with others. Denies SI or AH. Admits to seeing "cartoons everywhere, on the noble and ceiling, but it comes and goes." States he can't live with his sister because her place is not wheelchair or walker compatible and he has 3 big dogs" but says his sister is trying to help him find a place to live. No paranoid delusions at this time. Reports feeling better today because he was able to sleep, stating, "I hadn't slept for 2 weeks." S/I, H/I: Denies A/VH: Denies Sleep: Napped for several short periods today ADL's: Requires minimal staff assistance, and ambulates with the use of a walker per generalized body weakness. Group attendance: Yes Were meds taken: Yes Any med S/E: No Mental Status Exam Appearance: WNL Eye contact: Good Behavior: Cooperative, fatigued Speech: Soft, but WNL Mood: Pleasant Affect: Blunted Thought process: Poverty of thought in regards to mental health Thought Content: Sleeping preoccupied Cognition: Alert and oriented Insight: Poor Judgment: Poor Interventions PRN's used: [place]-10 X1 Therapeutic interventions: Introduced self and established rapport, maintained a safe and therapeutic environment, provided medication education, ensured contract for safety, reoriented to reality as needed, monitored for behavioral changes, maintained fall precautions, and Q 15 min safety checks. Restraints/seclusion/emergency medication: N/A Justification of Continued Inpatient Treatment: Pt. requires interruption of current crisis, medication adjustments, and continued therapy.
--- NOTE | 2018-07-29 19:50 | NUR ---
Nursing Note: New order for ACHS Accuchecks per EVETTE Cee. Pt. had an HBA1C of 6.8 on 07/10/18, and per EVETTE Cee it does not need to be repeated at this time.
[2018-07-29 20:00] VITALS: BP 137/91
[2018-07-29] MEDS ORDERED: OLANZapine 2.5MG tablet PO SCH (21:00)
[2018-07-29] MEDS: OLANZapine 2.5MG tablet PO PRN (22:26)
[2018-07-29] MEDS ORDERED: oxyCODONE IR 5mg (immed. release) tablet PO ONE (23:40)
--- NOTE | 2018-07-30 00:42 | NUR ---
Nursing Progress Note: Legal hold: 5150 Client on voluntary/involuntary status for GD/DTS Report received from nurse with use of SBAR: MADHAVI Guadalupe Why are they here: Pt. readmitted after recently being discharged to [facility]. He was brought to the ER via EMS with c/o neck and left hip pain after a previous fall X2 days prior. Pt. reported that he fell after walking to the window at to investigate lights outside his window. He presented with paranoid delusions, stated, "I called the FBI because the people working at [facility] are working with the people that took my grandson and sister." Also pt. reported that he had been seeing cartoon characters on the floor and noble and drones/lights outside his window at night. He remains on a 5150 at this time, however reports he is ready to leave and would like to get his own apartment. Assessment What has happened this shift: Pt. up sitting in the Group Room at the beginning of the shift, interacting appropriately with others. 1:1 completed, pt. continues to deny S/I or any A/V/WILSON. He rates his depression and anxiety as a 1 or 2. Pt. continues to report chronic lower back pain, however will not take PRN Williston along with Zyprexa until he lays down in bed per belief that it will help him sleep through the night. Pt. states, "That tranquilizer you gave me last night (PRN Restoril X1), made me feel trapped in the bed, like I could not move." This news writer assured pt. that he would not be getting Restoril again tonight, and encouraged him to alert staff if unable to sleep, he voiced understanding. Pt. awakens at approximately 2230 and comes into the hallway to look at the clock, requests PRN Zyprexa 2.5 mg per inability to sleep, medication administered and able to return back to bed. However, pt awoke again at approximately 2320 and ambulated to the hallway again to check the clock. Pt. agitated and reporting he cannot sleep r/t chronic pain in lower back, states, "I need to get out of here & call my education reporter! They took away my Oxycodone & they can't do that to elders!" Pt. had been administered Williston-[address] approximately [address] Hanks notified, obtained new order for Oxycodone 5mg X1, pt. reports content. Medication administered along with a snack. Pt. sitting in his room looking out the window and watching the cars, he reports he believes that Oxycodone helps with PTSD and it is prescribed to soldiers for this very reason. He also states in a paranoid way that he believes the night staff at [facility] were stealing his Oxycodone, "That's why I couldn't sleep there and why I fell." Fall precautions in place and pt. able to ambulate independently with use of walker. Pt. educated to use call light in order to transfer during the night, or if he experiences any dizziness, and he voiced understanding. S/I, H/I: Denies A/VH: Denies Sleep: Pt. continues to perseverate on sleep, and reports that Oxycodone is the only thing that works for his insomnia. ADL's: Requires minimal staff assistance, and ambulates with the use of a walker per generalized body weakness. Group attendance: Attended all groups per AM shift, however unable to identify any coping mechanisms at this time. Were meds taken: Yes Any med S/E: No Mental Status Exam Appearance: Appears older than stated age, dressed appropriately in hospital attire. Walks with generalized weakness with use of walker. Eye contact: Good Behavior: Cooperative, fatigued, and became somewhat irritable and agitated at HS r/t perseveration over sleep and Oxycodone. Speech: Soft, but WNL Mood: Pleasant, however becomes irritable at HS Affect: Blunted, animates with conversation Thought process: Poverty of thought in regards to mental health, circumstantial at times Thought Content: Paranoid delusions and perseveration r/t insomnia and Oxycodone Cognition: A&O X4 Insight: Poor to fair Judgment: Poor to fair Interventions PRN's used: Williston-10 X1, PRN Zyprexa 2.5mg, and Oxycodone 5mg Therapeutic interventions: Provided active listening, maintained a safe and therapeutic environment, provided medication education, ensured contract for safety, reoriented to reality as needed, provided clear/simple instructions, monitored for behavioral changes, maintained fall precautions, encouraged independent performance of ADLs, provided a quiet environment for sleep, obtained orders to [facility] accuchecks and Oxycodone X1, and maintained Q 15 min safety checks. Restraints/seclusion/emergency medication: N/A Justification of Continued Inpatient Treatment: Pt. requires interruption of current crisis, medication adjustments, and continued therapy.
[2018-07-30 08:00] VITALS: BP 165/86
[2018-07-30] MEDS: predniSONE 5mg tablet PO SCH (08:22)
[2018-07-30] MEDS: pantoprazole 40mg Tablet.DR PO SCH (08:22)
[2018-07-30] MEDS: metoprolol tartrate 25mg tablet PO SCH ×2 (08:22→20:40)
[2018-07-30] MEDS: aspirin 81mg tab.chew PO SCH (08:23)
[2018-07-30] MEDS: HYDROcodone/acetaminophen 10/325mg tab PO PRN ×2 (08:23→20:39)
--- NOTE | 2018-07-30 17:43 | NUR ---
Nursing Progress Note: Legal hold: 5150 Client on voluntary/involuntary status for GD/DTS Report received from nurse with use of SBAR: MADHAVI Eason Why are they here: Pt. readmitted after recently being discharged to [facility]. He was brought to the ER via EMS with c/o neck and left hip pain after a previous fall X2 days prior. Pt. reported that he fell after walking to the window at to investigate lights outside his window. He presented with paranoid delusions, stated, "I called the FBI because the people working at [facility] are working with the people that took my grandson and sister." Also pt. reported that he had been seeing cartoon characters on the floor and noble and drones/lights outside his window at night. He remains on a 5150 at this time, however reports he is ready to leave and would like to get his own apartment. Assessment What has happened this shift: The patient was asleep at change of shift, he is up to all meals and groups with others. Dexter given at breakfast and no request for additional pain meds today. He is talkative and cooperative. He naps for short periods during the day. Mild depression, no SI AH or VH this shift. Says he is feeling "better over all." New order for Amaryl obtained to start tomorrow and no need to put patient on hyperglycemic hospital protocol at this time. S/I, H/I: Denies A/VH: Denies Sleep: Napped ADL's: Requires minimal staff assistance, and ambulates with the use of a walker per generalized body weakness. Group attendance: Yes all Were meds taken: Yes Any med S/E: No Mental Status Exam Appearance: Neat and clean Walks with generalized weakness with use of walker. Eye contact: Good Behavior: Cooperative Speech: Soft, but WNL Mood: Pleasant Affect: Blunted, animates with conversation Thought process: Poverty of thought in regards to mental health, circumstantial at times Thought Content: concerned about sleeping Cognition: A&O X4 Insight: Poor to fair Judgment: Poor to fair Interventions PRN's used: Dexter-10 X1 Therapeutic interventions: Provided active listening, maintained a safe and therapeutic environment, provided medication education, ensured contract for safety, reoriented to reality as needed, provided clear/simple instructions, monitored for behavioral changes, maintained fall precautions, encouraged independent performance of ADLs, provided a quiet environment for sleep, obtained orders to [facility] accuchecks and maintained Q 15 min safety checks. Restraints/seclusion/emergency medication: N/A Justification of Continued Inpatient Treatment: Pt. requires interruption of current crisis, medication adjustments, and continued therapy.
[2018-07-30 19:00] VITALS: BP 138/86
[2018-07-30] MEDS: OLANZapine 2.5MG tablet PO SCH (22:17)
[2018-07-30] MEDS: oxyCODONE IR 5mg (immed. release) tablet PO SCH (23:01)
--- NOTE | 2018-07-31 02:51 | NUR ---
Nursing Progress Note: Legal hold: 5150 Client on voluntary/involuntary status for GD/DTS Report received from nurse with use of SBAR: MADHAVI Guadalupe Why are they here: Pt. readmitted after recently being discharged to [facility]. He was brought to the ER via EMS with c/o neck and left hip pain after a previous fall X2 days prior. Pt. reported that he fell after walking to the window at to investigate lights outside his window. He presented with paranoid delusions, stated, "I called the FBI because the people working at [facility] are working with the people that took my grandson and sister." Also pt. reported that he had been seeing cartoon characters on the floor and noble and drones/lights outside his window at night. He remains on a 5150 at this time, however reports he is ready to leave and would like to get his own apartment. Assessment What has happened this shift: Pt. up sitting in the Group Room at the beginning of the shift, interacting appropriately with others. Daughter in to visit, visit appeared to go well. 1:1 completed, pt. continues to deny S/I or any A/V/WILSON. He states he was able to sleep much better last night after getting Oxycodone. Pt. continues to report chronic lower back pain, administered PRN Jefferson w/o effectiveness, will continue to monitor. He refuses to take ordered HS Oxycodone until approximately 2300, per belief that it will help him sleep through the night. Pt. encouraged to alert staff if unable to sleep, he voiced understanding. No irritation exhibited or paranoid delusional statements made this shift. Fall precautions in place and pt. able to ambulate independently with use of walker. Pt. educated to use call light in order to transfer during the night, or if he experiences any dizziness, and he voiced understanding. S/I, H/I: Denies A/VH: Denies Sleep: Pt. continues to perseverate on sleep, and reports that Oxycodone is the only thing that works for his insomnia. He requests to have it administered at 2300. ADL's: Requires minimal staff assistance, and ambulates with the use of a walker per generalized body weakness. Group attendance: Attended all groups per AM shift Were meds taken: Yes Any med S/E: No Mental Status Exam Appearance: Appears older than stated age, disheveled and unshaven, however dressed appropriately in hospital attire. Walks with generalized weakness with use of walker. Eye contact: Good Behavior: Cooperative and fatigued. No irritability/increased delusions observed at HS, as seen during two previous night. Speech: Soft, profuse, but WNL Mood: Pleasant and joking with this insurance underwriter sales Affect: Animated Thought process: Poverty of thought in regards to mental health, circumstantial and tangental Thought Content: Paranoid delusions and perseveration r/t insomnia and Oxycodone Cognition: A&O X4 Insight: Poor to fair Judgment: Poor to fair Interventions PRN's used: Jefferson-10 X1 Therapeutic interventions: Provided active listening, maintained a safe and therapeutic environment, provided medication education, ensured contract for safety, reoriented to reality as needed, provided clear/simple instructions, monitored for behavioral changes, maintained fall precautions, encouraged independent performance of ADLs, provided a quiet environment for sleep, and maintained Q 15 min safety checks. Restraints/seclusion/emergency medication: N/A Justification of Continued Inpatient Treatment: Pt. requires continued medication adjustments, therapy, and a safe discharge planning.
--- NOTE | 2018-07-31 04:22 | NUR ---
Nursing Note: Pt. awakens irritable and presses call light, states, "I have to have Oxycodone 10mg at midnight or I can't sleep through the night! I've been telling them that for 6 months now." Provided with a snack, will continue to monitor.
[2018-07-31 08:00] VITALS: BP 167/74
[2018-07-31] MEDS: aspirin 81mg tab.chew PO SCH (08:40)
[2018-07-31] MEDS: pantoprazole 40mg Tablet.DR PO SCH (08:40)
[2018-07-31] MEDS: oxyCODONE IR 5mg (immed. release) tablet PO SCH ×2 (08:41→20:51)
[2018-07-31] MEDS: metoprolol tartrate 25mg tablet PO SCH ×2 (08:41→20:51)
[2018-07-31] MEDS: glimepiride 1 MG tablet PO SCH (08:41)
[2018-07-31] MEDS: predniSONE 5mg tablet PO SCH (10:58)
--- NOTE | 2018-07-31 17:22 | NUR ---
Nursing Progress Note: Legal hold: 5150 Client on voluntary/involuntary status for GD/DTS Report received from nurse with use of SBAR: MADHAVI Eason Why are they here: Pt. readmitted after recently being discharged to [facility]. He was brought to the ER via EMS with c/o neck and left hip pain after a previous fall X2 days prior. Pt. reported that he fell after walking to the window at to investigate lights outside his window. He presented with paranoid delusions, stated, "I called the FBI because the people working at [facility] are working with the people that took my grandson and sister." Also pt. reported that he had been seeing cartoon characters on the floor and noble and drones/lights outside his window at night. He remains on a 5150 at this time, however reports he is ready to leave and would like to get his own apartment. Assessment What has happened this shift: Received Pt asleep w/o distress in bed at change of shift. He was soon up and in group room with others. Attended meals and groups with others and enjoys being around people. He is cooperative and pleasant to talk with when approached, although he does not initiate conversation. Did not request pain meds today. Blood sugar at 0815-133; at 1245-91. S/I, H/I: Denies A/VH: Denies Sleep: Napped ADL's: Requires minimal staff assistance, and ambulates with the use of a walker. Group attendance: Yes, AM and PM Were meds taken: Yes Any med S/E: No Mental Status Exam Appearance: Neat and clean Walks with generalized weakness with use of walker. Eye contact: Good Behavior: Cooperative Speech: Soft, but WNL Mood: Pleasant Affect: Blunted, animates with conversation Thought process: Poverty of thought in regards to mental health, circumstantial at times Thought Content: concerned about sleeping Cognition: A&O X4 Insight: Poor to fair Judgment: Poor to fair Interventions PRN's used: None Therapeutic interventions: Provided active listening, maintained a safe and therapeutic environment, provided medication education, ensured contract for safety, reoriented to reality as needed, provided clear/simple instructions, monitored for behavioral changes, maintained fall precautions, encouraged independent performance of ADLs, provided a quiet environment for sleep, obtained orders to [facility] accuchecks and maintained Q 15 min safety checks. Restraints/seclusion/emergency medication: N/A Justification of Continued Inpatient Treatment: Pt. requires interruption of current crisis, medication adjustments, and continued therapy.
[2018-07-31 19:00] VITALS: BP 138/96
[2018-07-31] MEDS: OLANZapine 2.5MG tablet PO SCH (20:52)
--- NOTE | 2018-08-01 01:45 | NUR ---
Nursing Progress Note: Legal hold: 5150 Client on involuntary status for GD/DTS Report received from nurse with use of SBAR: MADHAVI Kwon Why are they here: Pt. readmitted after recently being discharged to [facility]. He was brought to the ER via EMS with c/o neck and left hip pain after a previous fall X2 days prior. Pt. reported that he fell after walking to the window at to investigate lights outside his window. He presented with paranoid delusions, stated, "I called the FBI because the people working at [facility] are working with the people that took my grandson and sister." Also pt. reported that he had been seeing cartoon characters on the floor and noble and drones/lights outside his window at night. He remains on a 5150 at this time, however reports he is ready to leave and would like to get his own apartment. Assessment What has happened this shift: The patient was sitting in the group room at shift change. He was sitting with other clients talking about life experiences. He reports that he was recently discharged to the [facility], but had a fall while he was apparently hallucinating about the lights outside. He believes they were some sort of drones or spies. The patient also believes a couple other clients were trying to poison him, and the staff was in on it. He has also believed that his family is poisoning him to get his home from him. The patient took his Oxycontin with meds, and said nothing about wanting it later around 2300. He woke up at 0200 c/o pain and was medicated with PRN Woodb[place] 10/325. He reports that he is well and wants to discharge so he can get his own place, "that way I can control who lives there." S/I, H/I: Denies A/VH: Denies Sleep: Reports pain too much to sleep well. ADL's: Uses walker for ambulation, and requires minimal assist with ADLs Group attendance: No groups at night. Were meds taken: Yes Any med S/E: None reported or observed. Mental Status Exam Appearance: Disheveled in hospital scrubs, unshaved and needing shower. Has flakes all over his shoulders. Eye contact: Good Behavior: Cooperative with staff. Sitting and watching videos with other clients. Speech: Hyperverbal, but normal volume, rate, and rhythm. Mood: "Good mood." Affect: Blunted. Thought process: Circumstantial, linear. Thought Content: Paranoid thoughts of being poisoned. Cognition: A&O X4 Insight: Poor to fair Judgment: Poor to fair Interventions PRN's used: Woodbine-10 X1 Therapeutic interventions: Provided active listening, maintained a safe and therapeutic environment, provided medication education, ensured contract for safety, reoriented to reality as needed, provided clear/simple instructions, monitored for behavioral changes, maintained fall precautions, encouraged independent performance of ADLs, provided a quiet environment for sleep, and maintained Q 15 min safety checks. Restraints/seclusion/emergency medication: N/A Justification of Continued Inpatient Treatment: Pt. requires continued medication adjustments, therapy, and a safe discharge planning.
[2018-08-01] MEDS: HYDROcodone/acetaminophen 10/325mg tab PO PRN ×2 (04:56→17:27)
[2018-08-01 07:00] VITALS: BP 160/81
[2018-08-01] MEDS: metoprolol tartrate 25mg tablet PO SCH ×2 (07:56→20:49)
[2018-08-01] MEDS: glimepiride 1 MG tablet PO SCH (07:56)
[2018-08-01] MEDS: oxyCODONE IR 5mg (immed. release) tablet PO SCH ×3 (07:57→20:50)
[2018-08-01] MEDS: aspirin 81mg tab.chew PO SCH (07:57)
[2018-08-01] MEDS: pantoprazole 40mg Tablet.DR PO SCH (07:57)
[2018-08-01] MEDS: predniSONE 5mg tablet PO SCH (07:58)
--- NOTE | 2018-08-01 16:45 | NUR ---
Nursing Progress Note: Legal hold: 5250 Client on involuntary status for GD/DTS Report received from MADHAVI Miller with use of SBAR: Why are they here: Pt. readmitted after recently being discharged to [facility]. He was brought to the ER via EMS with c/o neck and left hip pain after a previous fall X2 days prior. Pt. reported that he fell after walking to the window at to investigate lights outside his window. He presented with paranoid delusions, stated, "I called the FBI because the people working at [facility] are working with the people that took my grandson and sister." Also pt. reported that he had been seeing cartoon characters on the floor and noble and drones/lights outside his window at night. He remains on a 5150 at this time, however reports he is ready to leave and would like to get his own apartment. Assessment What has happened this shift: Patient awakened before breakfast for BGM. Accuchecks were 90 and 137. Patient tells a very long detailed history of his circumstances. Believes people at his house and [facility] were trying to poison him. 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 Reports that he has no place to go back to and wants to start looking for apt. and states that he has enough money to pay for it. S/I, H/I: Denies A/VH: Denies Sleep: 3.25 hours, awakens frequently in pain. ADL's: Uses walker for ambulation, and requires minimal assist with ADLs Group attendance: Movie group. Were meds taken: Yes Any med S/E: None reported or observed. Mental Status Exam Appearance: Elderly male wearing green scrubs, slightly disheveled. Eye contact: Good Behavior: Calm and cooperative. Speech: Tangential. Mood: Good. Affect: Blunted. Thought process: Circumstantial, linear. Thought Content: Paranoid thoughts of being poisoned. Cognition: A&O X4 Insight: Poor Judgment: Poor PRN's used: Conway-10 X1 Therapeutic interventions: Provided active listening, maintained a safe and therapeutic environment, provided medication education, ensured contract for safety, reoriented to reality as needed, provided clear/simple instructions, monitored for behavioral changes, maintained fall precautions, encouraged independent performance of ADLs, and maintained Q 15 min safety checks. Restraints/seclusion/emergency medication: N/A Justification of Continued Inpatient Treatment: Pt. requires continued medication adjustments, therapy, and a safe discharge planning.
[2018-08-01 20:00] VITALS: BP 176/102
[2018-08-01] MEDS: OLANZapine 2.5MG tablet PO PRN (20:46)
[2018-08-01] MEDS: olanzapine 10mg tablet PO SCH (20:50)
[2018-08-02] MEDS: HYDROcodone/acetaminophen 10/325mg tab PO PRN ×2 (03:41→17:42)
--- NOTE | 2018-08-02 03:50 | NUR ---
Nursing Progress Note: Legal hold: 5250 Client on involuntary status for GD/DTS Report received from nurse with use of SBAR: MADHAVI Gilliam Why are they here: Pt. readmitted after recently being discharged to [facility]. He was brought to the ER via EMS with c/o neck and left hip pain after a previous fall X2 days prior. Pt. reported that he fell after walking to the window at to investigate lights outside his window. He presented with paranoid delusions, stated, "I called the FBI because the people working at [facility] are working with the people that took my grandson and sister." Also pt. reported that he had been seeing cartoon characters on the floor and noble and drones/lights outside his window at night. He remains on a 5150 at this time, however reports he is ready to leave and would like to get his own apartment. Assessment What has happened this shift: The patient was found in the group room. 1:1 assessment done at his bedside. He's in a "good" mood, but says "they want me to go back to the [facility], but I don't trust them people." He says he's not ready yet, "why can't I stay here, I like it here." The patient reports that he slept pretty good last night, "I barely made it up for breakfast." BG 172 tonight. The patient stayed in his room, was seen at 2300 to give him his Oxycontin. He slept until around 0345, when he came out in pain. He was given PRN Niota, and has gone back to sleep. S/I, H/I: Denies A/VH: Denies Sleep: "I barely woke up for breakfast.". ADL's: Uses walker for ambulation, and requires minimal assist with ADLs Group attendance: No groups at night. Were meds taken: Yes Any med S/E: None reported or observed. Mental Status Exam Appearance: Disheveled, wearing blue sweat shirt and green scrub pants, unshaved and needing shower. Eye contact: Good Behavior: Spent the evening in his room. Speech: Clear, tells long rambling stories, normal volume, rate, and rhythm. Mood: "Good mood." Affect: Restricted. Thought process: Circumstantial, linear. Thought Content: Paranoid thoughts of being poisoned. Cognition: A&O X4 Insight: Poor to fair Judgment: Poor to fair Interventions PRN's used: Niota-10 X1 Therapeutic interventions: Provided active listening, maintained a safe and therapeutic environment, provided medication education, ensured contract for safety, reoriented to reality as needed, provided clear/simple instructions, monitored for behavioral changes, maintained fall precautions, encouraged independent performance of ADLs, provided a quiet environment for sleep, and maintained Q 15 min safety checks. Restraints/seclusion/emergency medication: N/A Justification of Continued Inpatient Treatment: Pt. requires continued medication adjustments, therapy, and a safe discharge planning.
[2018-08-02 07:00] VITALS: BP 137/73
[2018-08-02] MEDS: oxyCODONE IR 5mg (immed. release) tablet PO SCH (07:36)
[2018-08-02] MEDS: glimepiride 1 MG tablet PO SCH (07:37)
[2018-08-02] MEDS: pantoprazole 40mg Tablet.DR PO SCH (07:37)
[2018-08-02] MEDS: metoprolol tartrate 25mg tablet PO SCH ×2 (08:00→20:24)
[2018-08-02] MEDS: predniSONE 5mg tablet PO SCH (09:06)
[2018-08-02] MEDS: aspirin 81mg tab.chew PO SCH (09:06)
--- NOTE | 2018-08-02 10:50 | NUR ---
Nurses Note: Lopressor held due to pulse 53.
--- NOTE | 2018-08-02 12:09 | NUR ---
Initial: patient is eating well, good appetite, eating 75-100% of carb controlled diet with chopped foods. Will continue to follow. Recommend: 1. continue carb controlled diet with chopped foods 2. Wt per rx Addendum: 08/02/18 at [address] Amended: Links added.
--- NOTE | 2018-08-02 17:45 | NUR ---
Nursing Progress Note: Legal hold: 5250 Client on involuntary status for GD/DTS Report received from MADHAVI Miller with use of SBAR: Why are they here: Pt. readmitted after recently being discharged to [facility]. He was brought to the ER via EMS with c/o neck and left hip pain after a previous fall X2 days prior. Pt. reported that he fell after walking to the window at to investigate lights outside his window. He presented with paranoid delusions, stated, "I called the FBI because the people working at [facility] are working with the people that took my grandson and sister." Also pt. reported that he had been seeing cartoon characters on the floor and noble and drones/lights outside his window at night. He remains on a 5150 at this time, however reports he is ready to leave and would like to get his own apartment. Assessment What has happened this shift: Patient asleep upon arrival to unit. Patient awakened for his BGM and medications. Patient states that he slept much better last night. Has not have any evidence of paranoid ideations while inpatient. Patient denies SI, AVH. BGM 81, 70, 150. Patient went into group this morning and stated that he was in deep meditative state after class, and needs to wake up again. Patient is eating adequate amounts of food by nutrition report. Pt. had his 5250 hearing today, and did not contest his 5250. S/I, H/I: Denies A/VH: Denies Sleep: Good sleep. ADL's: Uses walker for ambulation, and requires minimal assist with ADLs Group attendance: Attends all groups. Were meds taken: Yes Any med S/E: None reported or observed. Mental Status Exam Appearance: Elderly male wearing green scrubs, slightly disheveled. Eye contact: Good Behavior: Cooperative and calm. Speech: Tangential/hyperverbal. Mood: Slightly depressed. Affect: Blunted. Thought process: Circumstantial, linear. Thought Content: Pt. concerned about back pain and medication management. Pt wants to find stable housing. Cognition: A&O X4 Insight: Fair. Judgment: Poor PRN's used: [place]-10 X1 Therapeutic interventions: Provided active listening, maintained a safe and therapeutic environment, provided medication education, ensured contract for safety, reoriented to reality as needed, provided clear/simple instructions, monitored for behavioral changes, maintained fall precautions, encouraged independent performance of ADLs, and maintained Q 15 min safety checks. Restraints/seclusion/emergency medication: N/A Justification of Continued Inpatient Treatment: Pt. requires continued medication adjustments, therapy, and a safe discharge planning.
[2018-08-02] MEDS: olanzapine 10mg tablet PO SCH (20:23)
[2018-08-02] MEDS: OLANZapine 2.5MG tablet PO PRN (20:24)
[2018-08-02 20:41] VITALS: BP 135/85
[2018-08-02] MEDS: acetaminophen 325mg tablet PO PRN (20:42)
[2018-08-03] MEDS: oxyCODONE IR 5mg (immed. release) tablet PO SCH ×3 (00:07→20:16)
--- NOTE | 2018-08-03 01:01 | NUR ---
Nursing Progress Note: Legal hold: 5250 Client on involuntary status for GD/DTS Report received from MADHAVI Gilliam with use of SBAR: Why are they here: Pt. readmitted after recently being discharged to [facility]. He was brought to the ER via EMS with c/o neck and left hip pain after a previous fall X2 days prior. Pt. reported that he fell after walking to the window at to investigate lights outside his window. He presented with paranoid delusions, stated, "I called the FBI because the people working at [facility] are working with the people that took my grandson and sister." Also pt. reported that he had been seeing cartoon characters on the floor and noble and drones/lights outside his window at night. He remains on a 5150 at this time, however reports he is ready to leave and would like to get his own apartment. Assessment What has happened this shift: Pt was in group room conversing w/roommate at change of shift. 1:1 assessment completed at bedside. Pt inquires about his hearing today stating "Your probably ready to kick me out of here soon." Pt Denies s/i, denies h/i, denies a/vh. Pt was smiling and pleasant. BS was 186, but pt stated he had snacks just prior. Pt would like his pain medication times changed to later in the evening. Pt refused oxycodone at 2000 stating he would like it at midnight. Pt reports sleeping well last night only waking for pain meds. He states appetite is good but he's feeling hungry a lot. pt requested an addtl snack before bed. S/I, H/I: Denies A/VH: Denies Sleep: Good sleep. ADL's: Uses walker for ambulation, and requires minimal assist with ADLs Group attendance: No evening groups Were meds taken: Yes Any med S/E: None reported or observed. Mental Status Exam Appearance: Elderly male wearing green scrubs, slightly disheveled. Eye contact: Good Behavior: Cooperative and calm. Speech: Tangential/hyperverbal. Mood: Slightly depressed. Affect: Blunted. Thought process: Circumstantial, linear. Thought Content: Pt. inquires about 5250 status/court hearing continues to be concerned about back pain and medication management. Pt wants to find stable housing. Cognition: A&O X4 Insight: Fair. Judgment: Poor PRN's used: none Therapeutic interventions: Provided active listening, maintained a safe and therapeutic environment, provided medication education, ensured contract for safety, reoriented to reality as needed, provided clear/simple instructions, monitored for behavioral changes, maintained fall precautions, encouraged independent performance of ADLs, and maintained Q 15 min safety checks. Restraints/seclusion/emergency medication: N/A Justification of Continued Inpatient Treatment: Pt. requires continued medication adjustments, therapy, and a safe discharge planning.
[2018-08-03] MEDS: HYDROcodone/acetaminophen 10/325mg tab PO PRN ×2 (03:07→17:13)
[2018-08-03 07:00] VITALS: BP 144/82
[2018-08-03] MEDS: glimepiride 1 MG tablet PO SCH (07:46)
[2018-08-03] MEDS: pantoprazole 40mg Tablet.DR PO SCH (07:47)
[2018-08-03] MEDS: aspirin 81mg tab.chew PO SCH (07:48)
[2018-08-03] MEDS: predniSONE 5mg tablet PO SCH (07:48)
[2018-08-03] MEDS: metoprolol tartrate 25mg tablet PO SCH ×2 (07:48→20:17)
--- NOTE | 2018-08-03 12:49 | NUR ---
Nursing Progress Note: Legal hold: 5250 Client on involuntary status for GD/DTS Report received from MADHAVI Goldstein with use of SBAR: Why are they here: Pt. readmitted after recently being discharged to [facility]. He was brought to the ER via EMS with c/o neck and left hip pain after a previous fall X2 days prior. Pt. reported that he fell after walking to the window at to investigate lights outside his window. He presented with paranoid delusions, stated, "I called the FBI because the people working at [facility] are working with the people that took my grandson and sister." Also pt. reported that he had been seeing cartoon characters on the floor and noble and drones/lights outside his window at night. He remains on a 5150 at this time, however reports he is ready to leave and would like to get his own apartment. Assessment What has happened this shift: Patient asleep at start of shift. Patient awoke for BGM and medications. Patient during 1:1 expressed that he does not believe he is being poisoned here. Questioned if he thought [facility] were trying to poison him, which he stated that they were not. Patient does believe he was poisoned at home, at the [place] and at [facility]. Patient does believe there were drones at [facility]. He also states that on weekends the patient's just come and go until late at night, and 2 patients were following him at [facility]. S/I, H/I: Denies A/VH: Denies Sleep: 5 hrs. ADL's: Uses walker for ambulation, and requires minimal assist with ADLs. showered. Group attendance: Attends all groups. Were meds taken: Yes Any med S/E: None reported or observed. Mental Status Exam Appearance: Elderly male wearing green scrubs. Freshly showered. Eye contact: Good Behavior: Cooperative and calm. Speech: Tangential/hyperverbal. Mood: Slightly depressed. Affect: Blunted. Thought process: Circumstantial. Thought Content: Pt. obsessed with stories about being poisoned and he is going to get to the bottom of it. Cognition: A&O X4 Insight: Fair. Judgment: Poor PRN's used: none Therapeutic interventions: Provided active listening, maintained a safe and therapeutic environment, provided medication education, ensured contract for safety, reoriented to reality as needed, provided clear/simple instructions, monitored for behavioral changes, maintained fall precautions, encouraged independent performance of ADLs, and maintained Q 15 min safety checks. Restraints/seclusion/emergency medication: N/A Justification of Continued Inpatient Treatment: Pt. requires continued medication adjustments, therapy, and safe discharge planning. Pt. is gravely disabled and cannot provide for food/clothing/mcfp. Addendum: 08/03/18 at 1402 by Tawana Coffman RN MOCHA test administered. Pt. scored .
[2018-08-03 20:07] VITALS: BP 117/82
[2018-08-03] MEDS: olanzapine 10mg tablet PO SCH (20:17)
[2018-08-03] MEDS: OLANZapine 2.5MG tablet PO PRN (23:23)
[2018-08-04] MEDS: HYDROcodone/acetaminophen 10/325mg tab PO PRN ×2 (01:15→19:24)
--- NOTE | 2018-08-04 02:30 | NUR ---
Nursing Progress Note: Legal hold: 5250 Client on involuntary status for GD/DTS Report received from MADHAVI Goldstein with use of SBAR: Why are they here: Pt. readmitted after recently being discharged to [facility]. He was brought to the ER via EMS with c/o neck and left hip pain after a previous fall X2 days prior. Pt. reported that he fell after walking to the window at to investigate lights outside his window. He presented with paranoid delusions, stated, "I called the FBI because the people working at [facility] are working with the people that took my grandson and sister." Also pt. reported that he had been seeing cartoon characters on the floor and noble and drones/lights outside his window at night. He remains on a 5150 at this time, however reports he is ready to leave and would like to get his own apartment. Assessment What has happened this shift: Patient was in group room talking on phone at the beginning of shift. Patient was calm and cooperative. Pt took medications as ordered. Pt c/o of back pain 10/18, Oxy IR was given as a scheduled medication and [place] 10 mg at 0100. This jingle writer did not observe any delusions and none reported by patient. Pt became upset later in shift, thinking that he wasn't receiving his Oxy IR twice a day. This jingle writer reeducated him on his scheduled medications and his PRN White Bird. S/I, H/I: None reported or observed A/VH: None reported or observed Sleep: See sleep assessment notation ADL's: Uses walker for ambulation, and requires minimal assist with ADLs Group attendance: film processing shift supervisor, no group Were meds taken: Yes Any med S/E: None reported or observed. Mental Status Exam Appearance: Elderly man, dishelved, wearing green scrubs, with noticeable dandruff on shirt Eye contact: Fair Behavior: Cooperative and calm. Speech: Soft, minimal, slightly mumbled Mood: "Good" Affect: Constricted Thought process: Circumstantial. Thought Content: Pain medications, pt doesn't think he is getting his OXY IR BID Cognition: A&O X3 Insight: Poor Judgment: Poor PRN's used: [place] Bird, Zyprexa Therapeutic interventions: Provided active listening, maintained a safe and therapeutic environment, provided medication education, ensured contract for safety, reoriented to reality as needed, provided clear/simple instructions, monitored for behavioral changes, maintained fall precautions, encouraged independent performance of ADLs, and maintained Q 15 min safety checks. Restraints/seclusion/emergency medication: N/A Justification of Continued Inpatient Treatment: Pt. requires continued medication adjustments, therapy, and safe discharge planning. Pt. is gravely disabled and cannot provide for food/clothing/half-way.
[2018-08-04] MEDS: oxyCODONE IR 5mg (immed. release) tablet PO SCH ×2 (07:57→20:36)
[2018-08-04] MEDS: pantoprazole 40mg Tablet.DR PO SCH (07:57)
[2018-08-04] MEDS: aspirin 81mg tab.chew PO SCH (07:58)
[2018-08-04] MEDS: predniSONE 5mg tablet PO SCH (07:58)
[2018-08-04] MEDS: glimepiride 1 MG tablet PO SCH (07:58)
[2018-08-04] MEDS: metoprolol tartrate 25mg tablet PO SCH ×2 (07:59→20:36)
[2018-08-04 08:00] VITALS: BP 115/69
--- NOTE | 2018-08-04 13:57 | NUR ---
Nursing Progress Note: Legal hold: 5150 Client on voluntary/involuntary status for GD/DTS Report received from nurse with use of SBAR: MADHAVI Vance Why are they here: Pt. readmitted after recently being discharged to [facility]. He was brought to the ER via EMS with c/o neck and left hip pain after a previous fall X2 days prior. Pt. reported that he fell after walking to the window at to investigate lights outside his window. He presented with paranoid delusions, stated, "I called the FBI because the people working at [facility] are working with the people that took my grandson and sister." Also pt. reported that he had been seeing cartoon characters on the floor and noble and drones/lights outside his window at night. He remains on a 5150 at this time, however reports he is ready to leave and would like to get his own apartment. Assessment What has happened this shift: Received Pt asleep w/o distress in bed at change of shift. Awoke briefly for BGM. He awoke again and went to group room for coffee and watched TV and socialized until breakfast. He attende all meals and appetite good. Attended groups and states he enjoys them. Likes being around others and engaged in conversation activly today. He is cooperative and pleasant to talk with. Did not request pain meds today. Ambulates well with walker. Reports feeling safe here and is willing to return to the [facility]. S/I, H/I: Denies A/VH: Denies Sleep: Napped ADL's: Requires minimal staff assistance, and ambulates with the use of a walker. Group attendance: Yes, AM and PM Were meds taken: Yes Any med S/E: No Mental Status Exam Appearance: Neat and clean Walks with generalized weakness with use of walker. Eye contact: Good Behavior: Cooperative Speech: Soft, but WNL Mood: Pleasant Affect: Blunted, animates with conversation Thought process: Poverty of thought in regards to mental health, circumstantial at times Thought Content: concerned about sleeping Cognition: A&O X4 Insight: Poor to fair Judgment: Poor to fair Interventions PRN's used: None Therapeutic interventions: Provided active listening, maintained a safe and therapeutic environment, provided medication education, ensured contract for safety, reoriented to reality as needed, provided clear/simple instructions, monitored for behavioral changes, maintained fall precautions, encouraged independent performance of ADLs, provided a quiet environment for sleep, obtained orders to [facility] accuchecks and maintained Q 15 min safety checks. Restraints/seclusion/emergency medication: N/A Justification of Continued Inpatient Treatment: Pt. requires interruption of current crisis, medication adjustments, and continued therapy.
[2018-08-04 20:00] VITALS: BP 126/88
[2018-08-04] MEDS: olanzapine 10mg tablet PO SCH (20:35)
[2018-08-04 21:27] VITALS: BP 126/88
--- NOTE | 2018-08-05 00:34 | NUR ---
Nursing Progress Note: Legal hold: 5250 Client on voluntary/involuntary status for GD/DTS Report received from nurse with use of SBAR: MADHAVI Kwon Why are they here: Pt. readmitted after recently being discharged to [facility]. He was brought to the ER via EMS with c/o neck and left hip pain after a previous fall X2 days prior. Pt. reported that he fell after walking to the window at to investigate lights outside his window. He presented with paranoid delusions, stated, "I called the FBI because the people working at [facility] are working with the people that took my grandson and sister." Also pt. reported that he had been seeing cartoon characters on the floor and noble and drones/lights outside his window at night. He remains on a 5150 at this time, however reports he is ready to leave and would like to get his own apartment. Assessment What has happened this shift: Pt was in group room watching T.V socializing with other peers at shift change. Pt was pleasant and cooperative. Pt states he is no longer seeing cartoon characters or drones. Did not elaborate on delusions of being poisoned. Pt states he wouldn't mind going back to [facility]. Pt requested [place] x1 shift- pain level at a 3, offered him a Tylenol, but refused and wanter his [place]. S/I, H/I: None reported or observed A/VH: None reported or observed Sleep: See sleep assessment notation ADL's: Requires minimal staff assistance, and ambulates with the use of a walker. Group attendance: customer solutions specialist, no group Were meds taken: Yes Any med S/E: None reported or observed Mental Status Exam Appearance: Slightly dishevel elderly man in green scrubs, in need of a shave Eye contact: Good Behavior: Cooperative Speech: Soft, mumbled, WNL Mood: Pleasant Affect: Blunted, animates with conversation Thought process: Poverty of thought Thought Content: Cognition: A&O X4 Insight: Poor to fair Judgment: Poor to fair Interventions PRN's used: None Therapeutic interventions: Provided active listening, maintained a safe and therapeutic environment, provided medication education, ensured contract for safety, reoriented to reality as needed, provided clear/simple instructions, monitored for behavioral changes, maintained fall precautions, encouraged independent performance of ADLs, provided a quiet environment for sleep, obtained orders to [facility] accuchecks and maintained Q 15 min safety checks. Restraints/seclusion/emergency medication: N/A Justification of Continued Inpatient Treatment: Pt. requires interruption of current crisis, medication adjustments, and continued therapy.
[2018-08-05] MEDS: OLANZapine 2.5MG tablet PO PRN (01:58)
[2018-08-05] MEDS: HYDROcodone/acetaminophen 10/325mg tab PO PRN ×2 (05:17→23:47)
[2018-08-05 07:54] VITALS: BP 161/71
[2018-08-05] MEDS: predniSONE 5mg tablet PO SCH (08:01)
[2018-08-05] MEDS: glimepiride 1 MG tablet PO SCH (08:01)
[2018-08-05] MEDS: pantoprazole 40mg Tablet.DR PO SCH (08:01)
[2018-08-05] MEDS: aspirin 81mg tab.chew PO SCH (08:02)
[2018-08-05] MEDS: oxyCODONE IR 5mg (immed. release) tablet PO SCH (08:02)
[2018-08-05] MEDS: metoprolol tartrate 25mg tablet PO SCH ×2 (08:02→20:02)
--- NOTE | 2018-08-05 14:56 | NUR ---
Nursing Progress Note: Legal hold: 5250 Client on involuntary status for GD/DTS Report received from nurse with use of SBAR: Pinky RN Why are they here: Pt readmitted after recently being discharged to [facility]. He was brought to the ER via EMS with c/o neck and left hip pain after a previous fall X2 days prior. Pt reported that he fell after walking to the window at to investigate lights outside his window. He presented with paranoid delusions, stated, "I called the FBI because the people working at [facility] are working with the people that took my grandson and sister." Also pt reported that he had been seeing cartoon characters on the floor and noble and drones/lights outside his window at night. He remains on a 5150 at this time, however reports he is ready to leave and would like to get his own apartment. Assessment What has happened this shift: Pt denied depression, anxiety, SI/HI/AH, did admit to VH; stated he saw cartoon characters on his siderail this morning, describes them like the Thursday paper, states they have captions but he can't read them. Pt states that sometimes when he covers his left eye, the cartoons go away. Pt explained that he had a scratch on his left eye before, also stated he hit his head when he fell at the [facility]. Pt is on FS AC/HS. FS AC breakfast was 75, AC lunch was 120. Pt stated that he felt "crappy" this morning with a BG of 75, states he feels better when it is high, he also does not like it that he is back on PO diabetic med as he is concerned it may drop him too low in the morning, states that when his BG is down in the 60's he is practically comatose. Pt c/o not being able to sleep well last night he believes due to his Oxycontin being decreased. Encouraged pt to shower, pt declined and stated, "maybe tomorrow." Pt stated that his daughter brought him in a bag of clothing that he had at the [facility] and that now we can't find it. Conveyed pt's medication concerns to psychiatrist during flash meeting, discussed lost clothing bag with SW. SW states that she believed that his clothing was still at the [facility], that no one went to pick them up , she will investigate. S/I, H/I: Pt denies A/VH: Pt denies Sleep: Pt c/o not being able to sleep well but per noc shift RN report, he appeared to be sleeping and recorded sleep hours last night were 8. ADL's: Independent, ambulates ad tata with FWW Group attendance: Yes, attended groups Were meds taken: Yes Any med S/E: None reported or observed Mental Status Exam Appearance: Disheveled, unshaven, copious dandruff flakes on scrub top, kyphotic Eye contact: Good Behavior: Cooperative Speech: clear, audible, normal rate and rhythm Mood: slightly irritable Affect: blunted Thought process: circumstantial Thought Content: Perseverates on medications not being how he likes Cognition: A&O X4 Insight: Fair Judgment: Fair Interventions PRN's used: None Therapeutic interventions: 1:1 assessment, therapeutic conversation, medication administration/monitoring/education, encouragement to perform personal hygiene, Q 15 minute checks. Restraints/seclusion/emergency medication: N/A Justification of Continued Inpatient Treatment: Pt. requires interruption of current crisis, medication adjustments, and continued therapy, unable to provide a plan for food, clothing, or residential.
[2018-08-05] MEDS: acetaminophen 325mg tablet PO PRN (18:47)
[2018-08-05 19:00] VITALS: BP 123/88
[2018-08-05] MEDS ORDERED: oxyCODONE IR 5mg (immed. release) tablet PO SCH (22:00)
[2018-08-05] MEDS: olanzapine 10mg tablet PO SCH (22:01)
[2018-08-05] MEDS: oxyCODONE SR 10mg (sust. release) tab PO SCH (22:01)
--- NOTE | 2018-08-05 23:37 | NUR ---
Nursing Progress Note: Legal hold: 5250 Client on voluntary/involuntary status for GD/DTS Report received from nurse with use of SBAR: MADHAVI Evans Why are they here: Pt. readmitted after recently being discharged to [facility]. He was brought to the ER via EMS with c/o neck and left hip pain after a previous fall X2 days prior. Pt. reported that he fell after walking to the window at to investigate lights outside his window. He presented with paranoid delusions, stated, "I called the FBI because the people working at [facility] are working with the people that took my grandson and sister." Also pt. reported that he had been seeing cartoon characters on the floor and noble and drones/lights outside his window at night. He remains on a 5150 at this time, however reports he is ready to leave and would like to get his own apartment. Assessment What has happened this shift: Received pt w/o distress, pt was in hallway speaking with Dr. Banks. Pt c/o not sleeping at night and not receiving his pain medications. Dr. Banks changed pt Oxy IR 5mg BID to Oxy SR 10mg BID (2nd dose scheduled at 2200) and increased Zyprexa to 15mg. Pt stated he was happy with the change. Pt's daughter and a friend of hers came to visit. At the end of the visit they requested to get pt's credit card and wallet to "pay bills for pt." These items were not relinquished and exp that if she brought the bills in the we could have the SW help with this. Pt BG was 191, but pt had already consumed an applesauce and 2 packages of polina crackers. Pt reported seeing the cartoon characters on the wall again. An MRI of the head wasn't ordered after the fall that brought patient back to [facility], this marketing writer was able to obtain an order from Dr. Banks. Pt was agitated c/o of not being able to sleep and "someone switched my medications" (meaning the OxyContin) S/I, H/I: None reported or observed A/VH: None reported or observed Sleep: See sleep assessment notation ADL's: Requires minimal staff assistance, and ambulates with the use of a walker. Group attendance: bakelite molder, no group Were meds taken: Yes Any med S/E: None reported or observed Mental Status Exam Appearance: Slightly disheveled elderly man in green scrubs, in need of a shave and shower Eye contact: Good Behavior: Cooperative Speech: Soft, mumbled, WNL Mood: Pleasant Affect: Blunted, animates with conversation Thought process: Poverty of thought Thought Content: Perseverates on "someone changed my medication", not sleeping, even though pt is observed sleeping. Cognition: A&O X4 Insight: Poor to fair Judgment: Poor to fair Interventions PRN's used: Tylenol Therapeutic interventions: Provided active listening, maintained a safe and therapeutic environment, provided medication education, ensured contract for safety, reoriented to reality as needed, provided clear/simple instructions, monitored for behavioral changes, maintained fall precautions, encouraged independent performance of ADLs, provided a quiet environment for sleep, obtained orders to [facility] accuchecks and maintained Q 15 min safety checks. Restraints/seclusion/emergency medication: N/A Justification of Continued Inpatient Treatment: Pt. requires interruption of current crisis, medication adjustments, and continued therapy. Addendum: 08/05/18 at 2351 by Pinky Ny RN PRN given: Amanda
[2018-08-06] MEDS: metoprolol tartrate 25mg tablet PO SCH ×2 (08:01→19:04)
[2018-08-06] MEDS: aspirin 81mg tab.chew PO SCH (08:02)
[2018-08-06] MEDS: glimepiride 1 MG tablet PO SCH (08:02)
[2018-08-06] MEDS: pantoprazole 40mg Tablet.DR PO SCH (08:02)
[2018-08-06] MEDS: predniSONE 5mg tablet PO SCH (08:02)
[2018-08-06] MEDS: oxyCODONE SR 10mg (sust. release) tab PO SCH ×2 (08:02→21:54)
[2018-08-06 08:12] VITALS: BP 144/74
[2018-08-06] MEDS ORDERED: LORazepam 0.5 MG tablet PO ONE (11:20)
[2018-08-06] MEDS ORDERED: LORazepam 0.5 MG tablet PO PRN ×2 (11:30)
--- NOTE | 2018-08-06 13:46 | NUR ---
1:1 DISCHARGE PLANNING YUMIKO returned contact to pt sister, Saloni at [phone], who reports she would like pt to discharge to her home until assisted living housing can be secured for pt. YUMIKO informed provider. SPEEDY Culp Addendum: 08/06/18 at 1503 by vE Gann SS SW and provider met with pt to discuss discharge planning. Pt reports he is willing to discharge to his sister's home if needed to help him secure his own housing. YUMIKO has encouraged pt to request assistance in finding assisted living through use of family members, [facility] YUMIKO and [facility]. SPEEDY Culp
--- NOTE | 2018-08-06 14:19 | NUR ---
Nursing Progress Note: Legal hold: 5250 Client on involuntary status for GD/DTS Report received from nurse with use of SBAR: Pinky RN Why are they here: Pt readmitted after recently being discharged to [facility]. He was brought to the ER via EMS with c/o neck and left hip pain after a previous fall X2 days prior. Pt reported that he fell after walking to the window at to investigate lights outside his window. He presented with paranoid delusions, stated, "I called the FBI because the people working at [facility] are working with the people that took my grandson and sister." Also pt reported that he had been seeing cartoon characters on the floor and noble and drones/lights outside his window at night. He remains on a 5150 at this time, however reports he is ready to leave and would like to get his own apartment. Assessment What has happened this shift: Pt c/o not sleeping well he states because his pain meds aren't right, states he has been taking them for years not only for pain but for sleep and depression as well and that he can feel when they are right and when they are not. Education provided re: difference between Oxycodone IR and SR, that it may take a few days to build up in his system and be effective, reminded him that he still had the prn Omar available. Pt denied depression, anxiety, SI/HI/AH, denied VH this morning though stated he was seeing garcia and designs yesterday. Pt had orders for an MRI today, he refused to sign the MRI questionnaire stating he didn't want to do it today, had many excuses as to why not, stated he was claustrophobic, stated his throat hurt, stated he had too much going on, stated he had an MRI done around 5 months ago at [facility], could not remember why. Yesterday pt had mentioned how the visual hallucinations had started up after he fell and hit his head at the [facility], had stated that he thought he had a concussion and complained how no X-rays or anything were done, reminded pt of this. Pt stated that he thought the visual hallucinations were due to cataracts, no obvious cataracts noted. Offered to premedicate him with Ativan before the procedure, discussed it with Thompson ALAS who gave order, pt still refusing to do MRI today despite education on its importance and much encouragement. Pt is fixated today on his bills, expressed unhappiness that his daughter was not allowed access to his debit card, voiced concern that his credit score was going to be ruined. Notified SW of his concerns. Pt shaved today but refused to shower. S/I, H/I: Pt denies A/VH: Pt denies today Sleep: Pt only slept 4 hours last night ADL's: Independent, ambulates ad tata with FWW Group attendance: Yes, attended groups Were meds taken: Yes Any med S/E: None reported or observed Mental Status Exam Appearance: Disheveled, shaven Eye contact: Good Behavior: Noncompliant with MRI today Speech: clear, soft spoken, normal rate and rhythm Mood: anxious, irritable Affect: irritable, anxious, stressed Thought process: more scattered today, difficulty focusing, perseverative Thought Content: Perseverating on pain meds being changed and unpaid bills, fearful of them affecting his credit score, also avoiding MRI Cognition: A&O X4 Insight: Fair Judgment: Fair Interventions PRN's used: None Therapeutic interventions: 1:1 assessment, therapeutic conversation, medication administration/monitoring/education, encouragement to perform personal hygiene, encouragement to allow MRI, communication with SW re: bills, Q 15 minute checks. Restraints/seclusion/emergency medication: N/A Justification of Continued Inpatient Treatment: Pt. requires interruption of current crisis, medication adjustments, and continued therapy, unable to provide a plan for food, clothing, or fci.
--- NOTE | 2018-08-06 18:15 | NUR ---
Patient in room MH 326B. I have received report from MADHAVI Evans and had the opportunity to ask questions and assume patient care.
[2018-08-06] MEDS: acetaminophen 325mg tablet PO PRN (19:04)
[2018-08-06 19:29] VITALS: BP 121/80
[2018-08-06] MEDS: olanzapine 10mg tablet PO SCH (21:55)
--- NOTE | 2018-08-07 03:48 | NUR ---
Nursing Progress Note: Legal hold: 5250 Client on involuntary status for GD/DTS Report received from nurse with use of SBAR: Nathan RN Why are they here: Pt readmitted after recently being discharged to [facility]. He was brought to the ER via EMS with c/o neck and left hip pain after a previous fall X2 days prior. Pt reported that he fell after walking to the window at to investigate lights outside his window. He presented with paranoid delusions, stated, "I called the FBI because the people working at [facility] are working with the people that took my grandson and sister." Also pt reported that he had been seeing cartoon characters on the floor and noble and drones/lights outside his window at night. He remains on a 5150 at this time, however reports he is ready to leave and would like to get his own apartment. Assessment What has happened this shift: Patient was agreeable to a 1:1 assessment at bedside. Patient was polite and coorapative with me. We began to talk about he was doing today and began to complain about his pain medication change. Says he chronic back pain and this new medication doesn't touch his pain. Although at the time his pain was only a 3/10 and requested Tylenol. Patient says he has hard time sleeping because of the pain medications change. I educated to him the difference between these new ones and his old ones that these was extended relief and would take time.He honestly didn't even listen. His mind was made up about the medication. I did tell him he has prn [place] Q8 hours if needed. Patient denied any depression, anxiety, SI/HI/AH, but did say he does have visual hallucination of seeing designs on noble with different shapes and colors. He said that the visual hallucination were because he has cataracts in his left eye. 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 Patient has been up and down out of bed using his FWW walker safety. Continue to watch him for any neuro deficient due to his recent fall at [facility] and decline of MRI. Fall precaution in place. On day shift he was fixated with his bills, no mention on this shift so far. S/I, H/I: Pt denies A/VH: Pt denies today Sleep: See sleep assessment notation ADL's: Independent, ambulates ad tata with FWW Group attendance: Yes, attended groups Were meds taken: Yes Any med S/E: None reported or observed Mental Status Exam Appearance: Disheveled, shaven Eye contact: Good Behavior: Noncompliant with MRI today Speech: clear, soft spoken, normal rate and rhythm Mood: anxious, irritable Affect: irritable, anxious, stressed. Thought process: Had a difficulty focusing, perseverative, loose in his thoughts waving between what he wanted to say. Thought Content: Focused only on medication changes unable to listen and learn about new medication and how they might help him. Cognition: A&O X4 Insight: Fair Judgment: Fair Interventions PRN's used: None Therapeutic interventions: 1:1 assessment, therapeutic conversation, medication administration/monitoring/education, encouragement to perform personal hygiene, encouragement to allow MRI, communication with SW re: Lea cordero 15 minute checks. Restraints/seclusion/emergency medication: N/A Justification of Continued Inpatient Treatment: Pt. requires interruption of current crisis, medication adjustments, and continued therapy, unable to provide a plan for food, clothing, or skilled nursing.
[2018-08-07 07:26] VITALS: BP 137/86
[2018-08-07] MEDS: oxyCODONE SR 10mg (sust. release) tab PO SCH ×2 (07:28→22:14)
[2018-08-07] MEDS: pantoprazole 40mg Tablet.DR PO SCH (07:28)
[2018-08-07] MEDS: metoprolol tartrate 25mg tablet PO SCH ×2 (07:29→21:14)
[2018-08-07] MEDS: predniSONE 5mg tablet PO SCH (07:29)
[2018-08-07] MEDS: glimepiride 1 MG tablet PO SCH (07:29)
[2018-08-07] MEDS: aspirin 81mg tab.chew PO SCH (07:30)
--- NOTE | 2018-08-07 16:36 | NUR ---
Nursing Progress Note: Legal hold: 5250 Client on involuntary status for GD/DTS Report received from nurse with use of SBAR: Noelle RN Why are they here: Pt readmitted after recently being discharged to [facility]. He was brought to the ER via EMS with c/o neck and left hip pain after a previous fall X2 days prior. Pt reported that he fell after walking to the window at to investigate lights outside his window. He presented with paranoid delusions, stated, "I called the FBI because the people working at [facility] are working with the people that took my grandson and sister." Also pt reported that he had been seeing cartoon characters on the floor and noble and drones/lights outside his window at night. He remains on a 5150 at this time, however reports he is ready to leave and would like to get his own apartment. Assessment What has happened this shift: Pt up in the group room at change of shift. He was compliant with medication administration. Cooperative with 1:1 assessment. He denied depression, SI, and A/VH. He indicated he has anxiety, particularly about how he to get his bills paid. Later, pt reported SW assisted him and he took care of his bills. Pt indicated that he feels he is sleeping too much. He reports repeatedly falling asleep in the group room. Pt stated, "Couldn't sleep at night, now sleeping a lot." He also complained that he is drooling. Pt refused to go to the AM group saying he would just fall asleep. He also napped in the afternoon. Pt up in the group room watching TV at 1545. S/I, H/I: Denies A/VH: Denies Sleep: Napped on and off during the day ADL's: Independent, uses FWW for ambulation Group attendance: No Were meds taken: Yes Any med S/E: None reported or observed Mental Status Exam Appearance: Disheveled, hair unclean and dandruff flakes noted on clothing Eye contact: Direct Behavior: Cooperative Speech: Quiet, normal rate and rhythm Mood: Anxious Affect: Constricted Thought process: Circumstantial Thought Content: Concerned about getting his bills paid and sleeping too much. Cognition: A&O X4 Insight: Fair Judgment: Fair Interventions PRN's used: None Therapeutic interventions: 1:1 therapeutic assessment, active listening, medication administration, monitoring, and education, encouraged ADLs, communication with SW re: Lea cordero 15 minute checks, maintained therapeutic milieu. Restraints/seclusion/emergency medication: N/A Justification of Continued Inpatient Treatment: Pt. requires interruption of current crisis, medication adjustments, and continued therapy. Pt unable to provide a plan for food, clothing, or skilled nursing.
[2018-08-07 19:00] VITALS: BP 133/91
[2018-08-07] MEDS: olanzapine 10mg tablet PO SCH (22:14)
[2018-08-07] MEDS: acetaminophen 325mg tablet PO PRN (22:32)
--- NOTE | 2018-08-08 01:33 | NUR ---
Nursing Progress Note: Legal hold: 5250 Client on voluntary/involuntary status for GD/DTS Report received from nurse with use of SBAR: MADHAVI Ellis Why are they here: Pt. readmitted after recently being discharged to [facility]. He was brought to the ER via EMS with c/o neck and left hip pain after a previous fall X2 days prior. Pt. reported that he fell after walking to the window at to investigate lights outside his window. He presented with paranoid delusions, stated, "I called the FBI because the people working at [facility] are working with the people that took my grandson and sister." Also pt. reported that he had been seeing cartoon characters on the floor and noble and drones/lights outside his window at night. 5150 converted to a 5250 as medications continue to be titrated r/t pt. report of increased fatigue, and discharge planning in progress. Pt. may return to [facility], or go and stay with his sister until permanent placement is found. Assessment What has happened this shift: Pt. up walking the hallway with use of walker at beginning of the shift, talking on the phone, and later in his room discussing his treatment plan with Dr. Hanks (new orders to discontinue Ellsworth and decrease HS dose of Zyprexa to 5mg r/t pt. report of increased fatigue). 1:1 completed at bedside, pt. continues to deny S/I or any A/V/WILSON, smiles and states, "I only hear your voice right now." He reports his depression was much better today, however he did feel fatigued during groups, and hopes decreasing his Zyprexa at will help. Pt. continues to report chronic lower back pain, requests PRN Tylenol with effectiveness, will continue to monitor. No paranoid delusional statements made this shift. This narrative writer questioned pt. regarding his plans for discharge, and he reported he might return to [facility], but he feels left out there because he cannot get around as well as the other clients r/t his chronic weakness and reliance on his walker. Pt. also reported, he might go stay with his sister for a while, however she does have three big dogs. Fall precautions in place and pt. able to ambulate independently with use of walker. Pt. educated to use call light in order to transfer during the night, or if he experiences any dizziness, and he voiced understanding. S/I, H/I: Denies A/VH: Denies Sleep: Pt. reports he has been sleeping better at night, however has had increased fatigue during the day ADL's: Requires minimal staff assistance, and ambulates with the use of a walker per generalized body weakness. Group attendance: Attended all groups per AM shift Were meds taken: Yes Any med S/E: Increased fatigue, HS dose of Zyprexa decreased to 5mg Mental Status Exam Appearance: Appears older than stated age, somewhat disheveled and unshaven, however dressed appropriately in hospital attire. Walks with generalized weakness with use of walker. Eye contact: Good Behavior: Cooperative with fatigue Speech: Soft, profuse, but WNL Mood: Pleasant and joking with this narrative writer Affect: Animated Thought process: Poverty of thought in regards to mental health, somewhat circumstantial at times Thought Content: No paranoid delusions exhibited this shift, however ongoing phobia/preoccupation regarding discharge Cognition: A&O X4 Insight: Fair Judgment: Fair Interventions PRN's used: Tylenol X1 r/t chronic lower back pain Therapeutic interventions: Provided active listening, maintained a safe and therapeutic environment, provided medication education, ensured contract for safety, reoriented to reality as needed, provided clear/simple instructions, monitored for behavioral changes, maintained fall precautions, encouraged independent performance of ADLs, provided a quiet environment for sleep, and maintained Q 15 min safety checks. Restraints/seclusion/emergency medication: N/A Justification of Continued Inpatient Treatment: Pt. requires continued medication titrations, a safe and therapeutic environment, and discharge planning.
[2018-08-08] MEDS: glimepiride 1 MG tablet PO SCH (07:35)
[2018-08-08] MEDS: metoprolol tartrate 25mg tablet PO SCH ×2 (07:36→22:14)
[2018-08-08] MEDS: pantoprazole 40mg Tablet.DR PO SCH (07:36)
[2018-08-08] MEDS: oxyCODONE SR 10mg (sust. release) tab PO SCH ×2 (07:36→22:13)
[2018-08-08] MEDS: predniSONE 5mg tablet PO SCH (07:36)
[2018-08-08 08:00] VITALS: BP 132/78
[2018-08-08] MEDS: aspirin 81mg tab.chew PO SCH (08:03)
--- NOTE | 2018-08-08 15:45 | NUR ---
Nursing Progress Note: Legal hold: 5250 Client on involuntary status for GD/DTO Report received from nurse with use of SBAR: MADHAVI Eason Why are they here: Pt readmitted after recently being discharged to [facility]. He was brought to the ER via EMS with c/o neck and left hip pain after a previous fall X2 days prior. Pt reported that he fell after walking to the window at to investigate lights outside his window. He presented with paranoid delusions, stated, "I called the FBI because the people working at [facility] are working with the people that took my grandson and sister." Also pt reported that he had been seeing cartoon characters on the floor and noble and drones/lights outside his window at night. He remains on a 5150 at this time, however reports he is ready to leave and would like to get his own apartment. Assessment What has happened this shift: Pt. awake shortly after arrival to unit. Pt states that the food does not taste good here. When asked what he was going to do for discharge, he states that he will probably go live with his sister until he can find an apartment. He received a call from his cousin in [place], and he is thinking about going down to [place] to live. He states that there may be limitations for someone that uses a wheelchair while out, as streets are cobblestone, and he cannot maneuver WC. Patient also states that he would like to establish care at [facility] as he is . S/I, H/I: Denies A/VH: Denies Sleep: 5.75 hrs. ADL's: Independent, uses FWW for ambulation Group attendance: No Were meds taken: Yes Any med S/E: None reported or observed Mental Status Exam Appearance: Disheveled, hair unclean and dandruff flakes noted on clothing Eye contact: Good. Behavior: Cooperative Speech: Quiet, normal rate and rhythm Mood: Anxious Affect: Constricted Thought process: Circumstantial Thought Content: DC plans. Cognition: A&O X4 Insight: Fair Judgment: Fair Interventions PRN's used: None Therapeutic interventions: 1:1 therapeutic assessment, active listening, medication administration, monitoring, and education, encouraged ADLs, communication with SW re: bills, Q 15 minute checks, maintained therapeutic milieu. Restraints/seclusion/emergency medication: N/A Justification of Continued Inpatient Treatment: Pt. requires interruption of current crisis, medication adjustments, and continued therapy. Pt unable to provide a plan for food, clothing, or prison.
[2018-08-08 20:00] VITALS: BP 137/70
[2018-08-08] MEDS: olanzapine 10mg tablet PO SCH (22:13)
[2018-08-09] MEDS: acetaminophen 325mg tablet PO PRN ×2 (00:38→19:34)
--- NOTE | 2018-08-09 02:00 | NUR ---
Nursing Progress Note: Legal hold: 5250 Client on involuntary status for GD/DTS. Report received from nurse with use of SBAR: MADHAVI Gilliam Why are they here: Pt. readmitted after recently being discharged to [facility] He was brought to the ER via EMS with c/o neck and left hip pain after a previous fall X2 days prior. Pt. reported that he fell after walking to the window at to investigate lights outside his window. He presented with paranoid delusions, stated, "I called the FBI because the people working at [facility] are working with the people that took my grandson and sister." Also pt. reported that he had been seeing cartoon characters on the floor and noble and drones/lights outside his window at night. He remains on a 5150 at this time, however reports he is ready to leave and would like to get his own apartment. Assessment What has happened this shift: The patient was in the group room. He agreed to 1:1 at bedside. he moves slowly, and appears to be in pain. His pain medicine has been decreased, but not the underlying reason for it. "They lowered my pain medicine, but I'm just in more pain now. Why do they do that?" He says he's still pondering where he might live, he just knows he doesn't want to go back to the [facility] "Wherever I go, I'm going to be in WC, so my options are limited." He had a visit from his daughter, then sat in his room. He wants his medications later, so his pain won't wake him so early. He went to sleep ~2300. S/I, H/I: Denies A/VH: Denies Sleep: "I wake up in pain all the time.". ADL's: Uses walker for ambulation, and requires minimal assist with ADLs. Group attendance: No groups at night. Were meds taken: Yes Any med S/E: None reported or observed. Mental Status Exam Appearance: Disheveled, wearing green scrubs. Eye contact: Good Behavior: WNL. Speech: Clear, tells long rambling stories, normal volume, rate, and rhythm. Mood: "Good" Affect: Restricted. Thought process: Circumstantial, linear. Thought Content: perseverates on pain.. Cognition: A&O X4 Insight: Poor to fair Judgment: Poor to fair Interventions PRN's used: None Therapeutic interventions: Provided active listening, maintained a safe and therapeutic environment, provided medication education, ensured contract for safety, reoriented to reality as needed, provided clear/simple instructions, monitored for behavioral changes, maintained fall precautions, encouraged independent performance of ADLs, provided a quiet environment for sleep, and maintained Q 15 min safety checks. Restraints/seclusion/emergency medication: N/A Justification of Continued Inpatient Treatment: Pt. requires continued medication adjustments, therapy, and a safe discharge planning.
[2018-08-09] MEDS ORDERED: dextrose ORAL solution 15 GM/59 ML bottle PO PRN ×2 (07:05)
[2018-08-09 07:41] VITALS: BP 139/67
[2018-08-09] MEDS: metoprolol tartrate 25mg tablet PO SCH ×2 (08:00→21:28)
[2018-08-09] MEDS: pantoprazole 40mg Tablet.DR PO SCH (08:11)
[2018-08-09] MEDS: glimepiride 1 MG tablet PO SCH (08:11)
[2018-08-09] MEDS: aspirin 81mg tab.chew PO SCH (08:12)
[2018-08-09] MEDS: predniSONE 5mg tablet PO SCH (08:12)
[2018-08-09] MEDS: oxyCODONE SR 10mg (sust. release) tab PO SCH ×2 (08:12→21:28)
--- NOTE | 2018-08-09 10:32 | NUR ---
1:1 DISCHARGE PLANNING SW received TC from [facility] regarding pt referral. YUMIKO informed [facility] will have open beds by the end of the week and pt could discharge to the facility if stabilized at that time. SPEEDY Culp
--- NOTE | 2018-08-09 16:28 | NUR ---
Nursing Progress Note: Legal hold: 5250 Client on involuntary status for GD/DTO Report received from nurse MADHAVI Cintron with the use of SBAR Why are they here: Pt readmitted after recently being discharged to [facility]. He was brought to the ER via EMS with c/o neck and left hip pain after a previous fall X2 days prior. Pt reported that he fell after walking to the window at to investigate lights outside his window. He presented with paranoid delusions, stated, "I called the FBI because the people working at [facility] are working with the people that took my grandson and sister." Also pt reported that he had been seeing cartoon characters on the floor and noble and drones/lights outside his window at night. He remains on a 5150 at this time, however reports he is ready to leave and would like to get his own apartment. Assessment What has happened this shift: Pt. awake shortly after arrival to unit. Pt states that the food does not taste good here. When asked what he was going to do for discharge, he states that he will probably go live with his sister until he can find an apartment. He received a call from his cousin in [facility], and he is thinking about going down to [place] to live. He states that there may be limitations for someone that uses a wheelchair while out, as streets are cobblestone, and he cannot maneuver WC. Patient also states that he would like to establish care at [facility] as he is . S/I, H/I: Denies A/VH: Denies Sleep: 5.75 hrs. ADL's: Independent, uses FWW for ambulation Group attendance: No Were meds taken: Yes Any med S/E: None reported or observed Mental Status Exam Appearance: Disheveled, hair unclean and dandruff flakes noted on clothing Eye contact: Good. Behavior: Cooperative Speech: Quiet, normal rate and rhythm Mood: Anxious Affect: Constricted Thought process: Circumstantial Thought Content: DC plans. Cognition: A&O X4 Insight: Fair Judgment: Fair Interventions PRN's used: None Therapeutic interventions: 1:1 therapeutic assessment, active listening, medication administration, monitoring, and education, encouraged ADLs, communication with SW re: consuelo, Lea 15 minute checks, maintained therapeutic milieu. Restraints/seclusion/emergency medication: N/A Justification of Continued Inpatient Treatment: Pt. requires interruption of current crisis, medication adjustments, and continued therapy. Pt unable to provide a plan for food, clothing, or custodial.
[2018-08-09 20:37] VITALS: BP 109/82
[2018-08-09] MEDS ORDERED: risperiDONE 0.5mg tablet PO ONE (21:00)
[2018-08-09] MEDS: OLANZapine 2.5MG tablet PO SCH (21:29)
--- NOTE | 2018-08-10 03:21 | NUR ---
Nursing Progress Note: Legal hold: 5250 Client on involuntary status for GD/DTS. Report received from nurse with use of SBAR: MADHAVI Tipton Why are they here: Pt. readmitted after recently being discharged to [facility]. He was brought to the ER via EMS with c/o neck and left hip pain after a previous fall X2 days prior. Pt. reported that he fell after walking to the window at to investigate lights outside his window. He presented with paranoid delusions, stated, "I called the FBI because the people working at [facility] are working with the people that took my grandson and sister." Also pt. reported that he had been seeing cartoon characters on the floor and noble and drones/lights outside his window at night. He remains on a 5150 at this time, however reports he is ready to leave and would like to get his own apartment. Assessment What has happened this shift: The patient was found in his room at shift change. He had a phone sitting next to him, and was paying bills. He doesn't see well and uses a magnifying glass. The patient spent the evening in his room, didn't feel like talking, except to say that he slept good last night, and wanted his Oxy a little earlier. He went to bed right after HS med pass. S/I, H/I: Denies A/VH: Denies Sleep: "I slept good last night." ADL's: Uses walker for ambulation, and requires minimal assist with ADLs. Group attendance: No groups at night. Were meds taken: Yes Any med S/E: None reported or observed. Mental Status Exam Appearance: Disheveled, unshaved, wearing green scrubs. Eye contact: Good Behavior: WNL. Speech: Clear, tells long rambling stories, normal volume, rate, and rhythm. Mood: "Good" Affect: Restricted. Thought process: Circumstantial, linear. Thought Content: perseverates on pain. Cognition: A&O X4 Insight: Poor to fair Judgment: Poor to fair Interventions PRN's used: None Therapeutic interventions: Provided active listening, maintained a safe and therapeutic environment, provided medication education, ensured contract for safety, reoriented to reality as needed, provided clear/simple instructions, monitored for behavioral changes, maintained fall precautions, encouraged independent performance of ADLs, provided a quiet environment for sleep, and maintained Q 15 min safety checks. Restraints/seclusion/emergency medication: N/A Justification of Continued Inpatient Treatment: Pt. requires continued medication adjustments, therapy, and a safe discharge planning.
[2018-08-10] MEDS: aspirin 81mg tab.chew PO SCH (07:53)
[2018-08-10] MEDS: glimepiride 1 MG tablet PO SCH (07:53)
[2018-08-10] MEDS: oxyCODONE SR 10mg (sust. release) tab PO SCH ×2 (07:53→22:22)
[2018-08-10] MEDS: metoprolol tartrate 25mg tablet PO SCH ×2 (07:53→20:18)
[2018-08-10] MEDS: predniSONE 5mg tablet PO SCH (07:54)
[2018-08-10] MEDS: pantoprazole 40mg Tablet.DR PO SCH (07:54)
[2018-08-10 08:00] VITALS: BP 134/86
--- NOTE | 2018-08-10 17:33 | NUR ---
Nursing Progress Note: Legal hold: 5250 Client on involuntary status for GD/DTS Report received from nurse with use of SBAR: MADHAVI Miller Why are they here: Pt readmitted after recently being discharged to [facility]. He was brought to the ER via EMS with c/o neck and left hip pain after a previous fall X2 days prior. Pt reported that he fell after walking to the window at to investigate lights outside his window. He presented with paranoid delusions, stated, "I called the FBI because the people working at [facility] are working with the people that took my grandson and sister." Also pt reported that he had been seeing cartoon characters on the floor and noble and drones/lights outside his window at night. He remains on a 5150 at this time, however reports he is ready to leave and would like to get his own apartment. Assessment What has happened this shift: Pt was sleeping at change of shift. He was cooperative with assessment. He denied depression and SI. He said he was a little anxious due to lack of sleep. When asked about hallucinations, he reported intermittently seeing cartoons in everything. He denied AH. He said that when he woke up at 0200, "Inside of mouth felt dry, spitting cotton." Notified EVETTE Holloway of these symptoms. Pt did not attend groups. S/I, H/I: Denies A/VH: Sees cartoons and garcia Sleep: Napped on and off during the day ADL's: Independent, uses FWW for ambulation Group attendance: No Were meds taken: Yes Any med S/E: None reported or observed Mental Status Exam Appearance: Green scrubs with dandruff noted on shoulders, unshaven Eye contact: Direct Behavior: Cooperative Speech: Normal rate and rhythm Mood: Anxious Affect: Constricted Thought process: Circumstantial Thought Content: Concerned about not sleeping Cognition: A&O X4 Insight: Fair Judgment: Fair Interventions PRN's used: None Therapeutic interventions: 1:1 therapeutic assessment, active listening, medication administration, monitoring, and education, encouraged ADLs, communication with SW re: Lea cordero 15 minute checks, maintained therapeutic milieu. Restraints/seclusion/emergency medication: N/A Justification of Continued Inpatient Treatment: Pt. requires interruption of current crisis, medication adjustments, and continued therapy.
[2018-08-10 20:00] VITALS: BP 128/88
[2018-08-10] MEDS ORDERED: risperiDONE 0.5mg tablet PO ONE (21:00)
[2018-08-10] MEDS: OLANZapine 2.5MG tablet PO SCH (22:22)
--- NOTE | 2018-08-11 01:47 | NUR ---
Nursing Progress Note: Legal hold: 5250 Client on involuntary status for GD/DTS Report received from nurse with use of SBAR: MADHAVI Ellis Why are they here: Pt readmitted after recently being discharged to [facility]. He was brought to the ER via EMS with c/o neck and left hip pain after a previous fall X2 days prior. Pt reported that he fell after walking to the window at to investigate lights outside his window. He presented with paranoid delusions, stated, "I called the FBI because the people working at [facility] are working with the people that took my grandson and sister." Also pt reported that he had been seeing cartoon characters on the floor and noble and drones/lights outside his window at night. He remains on a 5150 at this time, however reports he is ready to leave and would like to get his own apartment. Assessment What has happened this shift: Pt was in his room at change of shift. 1:1 assessment completed at bedside. Pt denies s/i, states he had a good day and he is here because of "stress". Pt perseverates on pain medication but states he only takes two a day. Pt is concerned he will have those doses taken from him. Pt reports his pain at a zero during our conversation. He explains he didnt feel pain while he was walking with his walker, "I almost forgot about it till you asked me." I discussed distraction techniques and pt acknowledged they do work for his pain. Pt reports appetite is good and he states he didnt sleep well last night. "I think someone forgot my medications so I couldn't sleep." pt states "I might be leaving in a couple of days anyway." Pt was calm, pleasant, cooperative this evening and med compliant. S/I, H/I: Denies A/VH: none reported Sleep: reports he didnt sleep well last night had naps today ADL's: Independent, uses FWW for ambulation Group attendance: No Were meds taken: Yes Any med S/E: None reported or observed Mental Status Exam Appearance: Green scrubs with dandruff noted on shoulders, unshaven Eye contact: Direct Behavior: Cooperative Speech: Normal rate and rhythm Mood: Anxious Affect: Constricted Thought process: Circumstantial Thought Content: Concerned about not sleeping Cognition: A&O X4 Insight: Fair Judgment: Fair Interventions PRN's used: None Therapeutic interventions: 1:1 therapeutic assessment, active listening, medication administration, monitoring, and education, Q 15 minute checks, maintained therapeutic milieu. Restraints/seclusion/emergency medication: N/A Justification of Continued Inpatient Treatment: Pt. requires interruption of current crisis, medication adjustments, and continued therapy.
[2018-08-11] MEDS: predniSONE 5mg tablet PO SCH (07:35)
[2018-08-11] MEDS: glimepiride 1 MG tablet PO SCH (07:35)
[2018-08-11] MEDS: pantoprazole 40mg Tablet.DR PO SCH (07:35)
[2018-08-11] MEDS: oxyCODONE SR 10mg (sust. release) tab PO SCH ×2 (07:35→21:01)
[2018-08-11 07:36] VITALS: BP 150/90
[2018-08-11] MEDS: metoprolol tartrate 25mg tablet PO SCH ×2 (07:36→20:46)
[2018-08-11] MEDS: aspirin 81mg tab.chew PO SCH (08:05)
--- NOTE | 2018-08-11 13:14 | NUR ---
Nursing Progress Note: Legal hold: 5250 Client on involuntary status for GD/DTS Report received from nurse with use of SBAR: MADHAVI Ortiz Why are they here: Pt readmitted after recently being discharged to [facility]. He was brought to the ER via EMS with c/o neck and left hip pain after a previous fall X2 days prior. Pt reported that he fell after walking to the window at to investigate lights outside his window. He presented with paranoid delusions, stated, "I called the FBI because the people working at [facility] are working with the people that took my grandson and sister." Also pt reported that he had been seeing cartoon characters on the floor and noble and drones/lights outside his window at night. He remains on a 5150 at this time, however reports he is ready to leave and would like to get his own apartment. Assessment What has happened this shift: Pt was sleeping at change of shift and up before breakfast. . He was cooperative with assessment. He denied depression and SI. Patient states intermittently having hallucinations, seeing cartoons. Patient denies auditory hallucinations. Patient social at lunch and sitting with other patients and chatting. Patient went to morning group. S/I, H/I: Denies A/VH: Patient has some cartoon hallucinations Sleep: Napped on and off during the day ADL's: Independent, uses FWW for ambulation Group attendance: Yes Were meds taken: Yes Any med S/E: None reported or observed Mental Status Exam Appearance: Green scrubs and unshaven Eye contact: Direct Behavior: Cooperative Speech: Normal rate and rhythm Mood: Anxious Affect: Constricted Thought process: Circumstantial Thought Content: Concerned about not sleeping Cognition: A&O X4 Insight: Fair Judgment: Fair Interventions PRN's used: None Therapeutic interventions: 1:1 therapeutic assessment, active listening, medication administration, monitoring, and education, encouraged ADLs, communication with SW re: dayanas, Lea 15 minute checks, maintained therapeutic milieu. Restraints/seclusion/emergency medication: N/A Justification of Continued Inpatient Treatment: Pt. requires interruption of current crisis, medication adjustments, and continued therapy.
--- NOTE | 2018-08-11 15:57 | NUR ---
Reassessment: patient is eating well, good appetite, eating 75-100% of carb controlled diet with chopped foods. Will continue to follow. Recommend: 1. continue carb controlled diet with chopped foods 2. Weekly weights Addendum: 08/11/18 at [address] Amended: Links added.
[2018-08-11 20:00] VITALS: BP 159/91
[2018-08-11] MEDS ORDERED: risperiDONE 2mg tablet PO ONE (21:00)
--- NOTE | 2018-08-12 00:36 | NUR ---
Nursing Progress Note: Legal hold: 5250 Client on voluntary/involuntary status for GD Report received from nurse with use of SBAR: MADHAVI Onofre Why are they here: Pt. readmitted after recently being discharged to [facility]. He was brought to the ER via EMS with c/o neck and left hip pain after a previous fall X2 days prior. Pt. reported that he fell after walking to the window at to investigate lights outside his window. He presented with paranoid delusions, stated, "I called the FBI because the people working at [facility] are working with the people that took my grandson and sister." Also pt. reported that he had been seeing cartoon characters on the floor and noble and drones/lights outside his window at night. 5150 converted to a 5250 as medications continue to be titrated r/t pt. report of increased fatigue, and discharge planning in progress. Pt. may return to [facility], or go and stay with his sister until permanent placement is found. Assessment What has happened this shift: Pt. up walking the hallway with use of walker at beginning of the shift, and later talking on the phone. 1:1 completed at bedside, pt. presents as cooperative, with some fatigue, and is slightly demanding/irritable at . He continues to deny S/I or any A/V/WILSON, however reports he has been having difficulty sleeping and requests his medications be given as early as possible. When this property underwriter questioned pt. regarding his depression he states, "My mood is pretty good in general for not sleeping." His fatigued during groups has improved since stopping the Zyprexa, however he still reports some drooling at times, will report to AM shift and continue to monitor. Pt. continues to report chronic lower back pain, scheduled Oyxcodone administered with effectiveness. No paranoid delusional statements made this shift. Fall precautions in place and pt. able to ambulate independently with use of walker. Pt. educated to use call light and alert staff if he is unable to sleep, and he voiced understanding. S/I, H/I: Denies A/VH: Denies Sleep: Pt. reports he has been having more difficulty sleeping at night and requests to have his medications administered as soon as possible, however he is having less fatigue during the day ADL's: Requires minimal staff assistance, and ambulates with the use of a walker per generalized body weakness. Group attendance: Pt. reports he attends all groups Were meds taken: Yes Any med S/E: Pt. reports his fatigued during groups has improved since stopping the Zyprexa, however he still reports some drooling at times, will continue to monitor. Mental Status Exam Appearance: Appears somewhat disheveled and unshaven, however dressed appropriately in hospital attire. Walks with generalized weakness with use of walker. Eye contact: Good Behavior: Cooperative with fatigue Speech: Soft, WNL Mood: Pleasant, some demanding behavior/irritability at times Affect: Animated Thought process: Poverty of thought in regards to mental health, somewhat circumstantial at times Thought Content: No paranoid delusions exhibited this shift, however ongoing phobia/preoccupation regarding discharge Cognition: A&O X4 Insight: Fair Judgment: Fair Interventions PRN's used: None Therapeutic interventions: Provided active listening, maintained a safe and therapeutic environment, provided medication education, ensured contract for safety, reoriented to reality as needed, provided clear/simple instructions, monitored for behavioral changes, maintained fall precautions, encouraged independent performance of ADLs, provided a quiet environment for sleep, and maintained Q 15 min safety checks. Restraints/seclusion/emergency medication: N/A Justification of Continued Inpatient Treatment: Pt. requires continued medication cross-tapering (involving Zyprexa and Risperdal), and a safe and therapeutic environment. Per Don ALAS, discharge will be considered after cross-taper is complete.
[2018-08-12 07:41] VITALS: BP 110/62
[2018-08-12] MEDS: pantoprazole 40mg Tablet.DR PO SCH (08:05)
[2018-08-12] MEDS: oxyCODONE SR 10mg (sust. release) tab PO SCH (08:05)
[2018-08-12 08:06] VITALS: BP_SYST 110
[2018-08-12] MEDS: aspirin 81mg tab.chew PO SCH (08:06)
[2018-08-12] MEDS: glimepiride 1 MG tablet PO SCH (08:06)
[2018-08-12] MEDS: metoprolol tartrate 25mg tablet PO SCH (08:06)
--- NOTE | 2018-08-12 08:30 | NUR ---
1:1 DISCHARGE PLANNING YUMIKO contacted pt's sister, Saloni Rangel at [phone], who reports she will be available to picker / packer pt in front of hospital at 15:00 this day. YUMIKO informed Ms. Rangel of the discharge plan orders. SPEEDY Culp
[2018-08-12] MEDS: predniSONE 5mg tablet PO SCH (08:32)
[2018-08-12] MEDS ORDERED: PRE5T PO (11:22)
[2018-08-12] MEDS ORDERED: METO25TA6 PO (11:22)
[2018-08-12] MEDS ORDERED: PANT40TA4 PO (11:22)
[2018-08-12] MEDS ORDERED: GLIM1TAB46 PO (11:22)
[2018-08-12] MEDS ORDERED: RISP2TAB3 PO (11:24)
--- NOTE | 2018-08-12 18:27 | NUR ---
Patient is accompanied off the unit by hao Brown at 1505. He is picked up by his sister Saloni and will be staying with her at her house. All valuables are with patient. Followup instructions and med appointment discussed and paper directions provided. Patients mood is good, no delusional thought content present and denies S/I. Patient is not under any acute physical or emotional distress. Nicotine replacement is not applicable.
[2018-08-12] MEDS ORDERED: risperiDONE 2mg tablet PO SCH (21:00)
== END 2018-08-12 15:09 | disposition home or self-care (01) | DRG 885 ==
LOC: ADULT MH 10:30
PROVIDERS: ADMIT Psychiatry & Neurology Psychiatry; ATTEND Psychiatry & Neurology Psychiatry
DX: F29 Unspecified psychosis not due to a substance or known physiological condition (principal); M33.90 Dermatopolymyositis, unspecified, organ involvement unspecified; R45.851 Suicidal ideations; B36.9 Superficial mycosis, unspecified; E11.9 Type 2 diabetes mellitus without complications; F41.9 Anxiety disorder, unspecified; G89.4 Chronic pain syndrome; R47.1 Dysarthria and anarthria; H54.62 Unqualified visual loss, left eye, normal vision right eye; F32.9 Major depressive disorder, single episode, unspecified; I10 Essential (primary) hypertension; I25.10 Atherosclerotic heart disease of native coronary artery without angina pectoris; K21.9 Gastro-esophageal reflux disease without esophagitis; Z87.891 Personal history of nicotine dependence; Z95.5 Presence of coronary angioplasty implant and graft; Z81.8 Family history of other mental and behavioral disorders; Z79.899 Other long term (current) drug therapy
CPT/HCPCS: 36415; 80061; 82948; 87070; J3490; J7512

== ENCOUNTER 2018-09-11 10:48 | Emergency (ER) | payer MEDICARE, OTHER ==
[~2018-09-11] VITALS: Ht 167.6 cm; Wt 78.0 kg
[~2018-09-11 10:48] MED LIST changes: +GLIM1TAB46 PO; +PANT40TA4 PO; +PRE5T PO; +RISP2TAB3 PO
[2018-09-11 11:12] VITALS: BP 157/80
--- NOTE | 2018-09-11 12:32 | NUR ---
CANT SLEEP, GETS UP 4TO 5 TIMES AND NIGHT TO URINATE AND CANT GET BACK TO SLEEP. 3-4 MONTHS AGO FELL AND HIT ON BACK OF HEAD. PT STATES, "I FEEL LIKE IM LOOSING IT. PT ON RESPERDAL AND HAS BEEN DROOLING. VA CUT DOSE IN HALF.
[2018-09-11 13:46] LABS: CLARITY,URINE CLEAR (Clear); COLOR,URINE YELLOW (Yellow); GLUCOSE, URINE NEGATIVE (Neg); KETONES,URINE NEGATIVE (Neg); LEUKOCYTE ESTERASE ,URINE NEGATIVE (Neg); NITRITES, URINE NEGATIVE (Neg); OCCULT BLOOD,URINE NEGATIVE (Neg); PROTEIN,URINE NEGATIVE (Neg); UA COLLECTION TYPE VOIDED; UROBILINOGEN,URINE 0.2 E.U/dL (0.2-1.0)
== END 2018-09-11 14:17 | disposition home or self-care (01) ==
LOC: ER 10:48
DX: G47.00 Insomnia, unspecified (principal); R30.0 Dysuria; R35.0 Frequency of micturition; I10 Essential (primary) hypertension; K21.9 Gastro-esophageal reflux disease without esophagitis; E11.9 Type 2 diabetes mellitus without complications; Z98.61 Coronary angioplasty status; Z98.890 Other specified postprocedural states; Z79.82 Long term (current) use of aspirin; Z79.899 Other long term (current) drug therapy
CPT/HCPCS: 81003; 99283

== ENCOUNTER → 2018-11-27 | Emergency (ER) | payer MEDICARE, OTHER ==
[~2018-11-27] VITALS: Ht 167.6 cm; Wt 72.7 kg
[~2018-11-27] MED LIST changes: +GLIM1TAB PO; +OXYC-580 PO; +PANT-47 PO; +aspirin 81mg tab.chew PO SCH; +dicyclomine 10 MG capsule PO ONE; +glimepiride 1 MG tablet PO SCH; +metoprolol tartrate 25mg tablet PO SCH; +oxyCODONE IR 5mg (immed. release) tablet PO SCH; +oxyCODONE SR 10mg (sust. release) tab PO PRN; +pantoprazole 40mg Tablet.DR PO SCH; +risperiDONE 2mg tablet PO SCH; +sulfamethoxazole/trimethoprim DS (800/160mg) tablet PO SCH
[2018-11-27 12:05] LABS: BASOPHILS % (AUTO) 0.5 % (0-1); EOSINOPHILS # (AUTO) 0.2 X10'3 (0-0.9); HEMATOCRIT 41.5 % (42.0-52.0); HEMOGLOBIN 14.4 g/dl (14.0-17.9); LYMPHOCYTES # (AUTO) 0.5 X10'3 (1.1-4.8); MEAN CORPUSCULAR HEMOGLOBIN 31.6 PG (27.0-31.0); MEAN CORPUSCULAR HGB CONC 34.7 g/dL (33.0-36.5); MEAN CORPUSCULAR VOLUME 91.2 FL (78-98); MEAN PLATELET VOLUME 7.2 FL (7.4-10.4); MONOCYTES # (AUTO) 1.1 X10'3 (0-0.9); MONOCYTES % (AUTO) 12.1 % (2-12); NEUTROPHILS # (AUTO) 7.1 X10'3 (1.8-7.7); NEUTROPHILS % (AUTO) 79.4 % (42-75); PLATELET COUNT 294 X10'3 (140-440); RED BLOOD COUNT 4.54 X10'6 (4.70-6.10); RED CELL DISTRIBUTION WIDTH 14.3 % (11.5-14.5)
[2018-11-27 12:14] LABS: CLARITY,URINE CLEAR (Clear); COLOR,URINE YELLOW (Yellow); GLUCOSE, URINE NEGATIVE (Neg); KETONES,URINE 15 mg/dl (Neg); LEUKOCYTE ESTERASE ,URINE NEGATIVE (Neg); NITRITES, URINE NEGATIVE (Neg); OCCULT BLOOD,URINE TRACE-LYSED (Neg); PROTEIN,URINE 30 mg/dl (Neg); UROBILINOGEN,URINE 0.2 E.U/dL (0.2-1.0)
[2018-11-27 12:16] LABS: UA COLLECTION TYPE CLN CATCH MIDSTREAM
[2018-11-27 12:20] LABS: ALANINE AMINOTRANSFERASE 39 U/L (12-78); ALBUMIN 3.5 G/DL (3.4-5.0); ALBUMIN/GLOBULIN RATIO 0.9 (1.1-1.5); ALKALINE PHOSPHATASE 92 IU/L (46-116); ANION GAP 9 (8-16); ASPARTATE AMINO TRANSFERASE 26 U/L (10-37); BILIRUBIN,TOTAL 0.6 MG/DL (0.1-1.0); BLOOD UREA NITROGEN 8 MG/DL (7-18); BUN/CREATININE RATIO 13.1 (5.4-32.0); CALCIUM 9.7 MG/DL (8.5-10.1); CHLORIDE 101 MMOL/L (99-107); CREATININE 0.61 MG/DL (0.60-1.10); GLUCOSE 143 MG/DL (70-104); SODIUM 136 MMOL/L (135-145); TOTAL CARBON DIOXIDE 25.7 MMOL/L (24-32); TOTAL PROTEIN 7.5 G/DL (6.4-8.2); eGFR > 90 ML/MIN
[2018-11-27 12:29] LABS: BACTERIA,URINE NONE SEEN /HPF (Neg); MUCUS STRANDS MODERATE /LPF (Neg); RBC,URINE 0-2 /HPF (0-2); SQUAMOUS EPITHELIAL CELL,UR NONE SEEN /LPF (FEW); URIC ACID CRYSTALS 1+ /HPF (NEGATIVE); WBC,URINE 0-4 /HPF (0-4)
--- NOTE | 2018-11-27 14:42 | NUR ---
PT ADMITTED TO OVERFLOW ROOM 21 STATING HAS BURING DURING URINATION, CONSTIPATION (ALTHOUGH STATES BM YESTERAY) STATES HIS QUALITY OF LIFE IS POOR AND HIS DAUGHTER RAFAEL HIM HERE BECAUSE OF THIS CONCERN. HE LIVES WITH HIS SISTER SINCE HIS 1.5 YEARS AGO WITH LUNG CANCER AND HE STILL MISSES HER AND SEES NO IMPROVEMENT IN HIS LIFE WITH THOUGHTS OF SI TAKING HIS PAIN PILLS (PRESCRIBED FOR CHRONIC BACK PAIN) OR GETTING IN A RUNNING CAR (STATING "iF i COULD GET IN ONE") IN A GARAGE OR REQUESTING ASSISTED SI. PT NOTED TO AMBULATE WITH WALKER TO BATHROOM, INSTRUCTED TO CONTINUE TO DO THIS ASK FOR HELP AND TO CHANGE POSITIONS IN BED TO HELP RELEAVE CHRONIC BACK PAIN, VERBALIZES UNDERSTANDING.
--- NOTE | 2018-11-27 14:48 | NUR ---
APPROVED RX/HOME MEDICATIONS FAXED TO RX
--- NOTE | 2018-11-27 17:01 | NUR ---
PACKET FAXED TO [facility]
[2018-11-27 17:04] VITALS: BP 144/73
[2018-11-27 17:49] LABS: URINE AMPHETAMINE SCREEN NEGATIVE (Neg); URINE BARBITUATE SCREEN NEGATIVE (Neg); URINE BENZODIAZEPINES SCREEN NEGATIVE (Neg); URINE CANNABINOID SCREEN NEGATIVE (Neg); URINE COCAINE SCREEN NEGATIVE (Neg); URINE METHADONE SCREEN NEGATIVE (Neg); URINE OPIATE SCREEN POSITIVE (Neg); URINE PHENCYCLIDINE SCREEN NEGATIVE (Neg)
--- NOTE | 2018-11-27 20:05 | NUR ---
toxicolgy faxed to [facility] at [phone]
== END | disposition home or self-care (01) ==
LOC: ER 10:46
DX: F32.9 Major depressive disorder, single episode, unspecified (principal); R30.0 Dysuria; R19.7 Diarrhea, unspecified; I10 Essential (primary) hypertension; K21.9 Gastro-esophageal reflux disease without esophagitis; E11.9 Type 2 diabetes mellitus without complications; Z98.61 Coronary angioplasty status; Z98.890 Other specified postprocedural states; Z79.82 Long term (current) use of aspirin; Z79.899 Other long term (current) drug therapy
CPT/HCPCS: 36415; 80053; 80305; 81001; 84443; 85025; 99284

== ENCOUNTER 2018-12-01 11:04 | Emergency (ER) | payer MEDICARE, OTHER ==
[~2018-12-01] VITALS: Ht 172.7 cm; Wt 70.0 kg
[~2018-12-01 11:04] MED LIST changes: -GLIM1TAB46 PO; -OMEP20TA23 PO; -OXYC10TA86 PO; -PANT-47 PO; -PANT40TA4 PO; -PRE5T PO; -PRED5TAB PO; -aspirin 81mg tab.chew PO SCH; -dicyclomine 10 MG capsule PO ONE; -glimepiride 1 MG tablet PO SCH; -metoprolol tartrate 25mg tablet PO SCH; -oxyCODONE IR 5mg (immed. release) tablet PO SCH; -oxyCODONE SR 10mg (sust. release) tab PO PRN; -pantoprazole 40mg Tablet.DR PO SCH; -risperiDONE 2mg tablet PO SCH; -sulfamethoxazole/trimethoprim DS (800/160mg) tablet PO SCH
[2018-12-01 11:59] LABS: CLARITY,URINE CLEAR (Clear); COLOR,URINE YELLOW (Yellow); GLUCOSE, URINE NEGATIVE (Neg); KETONES,URINE 15 mg/dl (Neg); LEUKOCYTE ESTERASE ,URINE NEGATIVE (Neg); NITRITES, URINE NEGATIVE (Neg); OCCULT BLOOD,URINE NEGATIVE (Neg); PH,URINE 5.5 (4.8-8.0); PROTEIN,URINE NEGATIVE (Neg); UROBILINOGEN,URINE 0.2 E.U/dL (0.2-1.0)
[2018-12-01 12:00] LABS: UA COLLECTION TYPE CLN CATCH MIDSTREAM
[2018-12-01 12:16] LABS: BASOPHILS # (AUTO) 0.1 X10'3 (0-0.2); BASOPHILS % (AUTO) 0.9 % (0-1); EOSINOPHILS # (AUTO) 0.1 X10'3 (0-0.9); HEMATOCRIT 42.5 % (42.0-52.0); HEMOGLOBIN 14.2 g/dl (14.0-17.9); LYMPHOCYTES # (AUTO) 0.7 X10'3 (1.1-4.8); LYMPHOCYTES % (AUTO) 9.8 % (21-51); MEAN CORPUSCULAR HEMOGLOBIN 30.6 PG (27.0-31.0); MEAN CORPUSCULAR HGB CONC 33.4 g/dL (33.0-36.5); MEAN CORPUSCULAR VOLUME 91.3 FL (78-98); MEAN PLATELET VOLUME 6.8 FL (7.4-10.4); MONOCYTES # (AUTO) 0.8 X10'3 (0-0.9); MONOCYTES % (AUTO) 10.6 % (2-12); NEUTROPHILS # (AUTO) 5.8 X10'3 (1.8-7.7); NEUTROPHILS % (AUTO) 76.7 % (42-75); PLATELET COUNT 379 X10'3 (140-440); RED BLOOD COUNT 4.65 X10'6 (4.70-6.10); RED CELL DISTRIBUTION WIDTH 14.5 % (11.5-14.5); WHITE BLOOD COUNT 7.5 X10'3 (4.5-11.0)
[2018-12-01 12:40] LABS: ALANINE AMINOTRANSFERASE 34 U/L (12-78); ALBUMIN 3.4 G/DL (3.4-5.0); ALBUMIN/GLOBULIN RATIO 0.9 (1.1-1.5); ALKALINE PHOSPHATASE 82 IU/L (46-116); ANION GAP 8 (8-16); ASPARTATE AMINO TRANSFERASE 23 U/L (10-37); BILIRUBIN,TOTAL 0.5 MG/DL (0.1-1.0); BLOOD UREA NITROGEN 7 MG/DL (7-18); BUN/CREATININE RATIO 10.8 (5.4-32.0); CALCIUM 9.7 MG/DL (8.5-10.1); CHLORIDE 104 MMOL/L (99-107); CREATININE 0.65 MG/DL (0.60-1.10); GLUCOSE 114 MG/DL (70-104); POTASSIUM 3.7 MMOL/L (3.5-5.1); SODIUM 141 MMOL/L (135-145); TOTAL CARBON DIOXIDE 29.3 MMOL/L (24-32); TOTAL PROTEIN 7.2 G/DL (6.4-8.2); eGFR > 90 ML/MIN
[2018-12-01 13:14] VITALS: BP 140/81
--- NOTE | 2018-12-01 14:23 | NUR ---
SPOKE TO SOCIAL SERVICE AT 1420 ,THEY WILL BE HERE SHORTLY EXPLAINED THAT PT SON HAS TO LEAVE SOON HE HAS ONLY ONE HOUR IF THEY CAN COME EARLY POSSIBLE, PER SOCIAL SERVICE THEY WILL BE HERE SHORTLY.INFORMED THE SON SITTING AT BEDSIDE.
--- NOTE | 2018-12-01 15:04 | NUR ---
SOCIAL SERVICE AT BEDSIDE ,SON AT BEDSIDE.WILL CONT TO MONITOR.
--- NOTE | 2018-12-01 15:37 | NUR ---
PT LEFT WITHOUT DISCHARGE PAPERWORK,DR SAEZ AWARE, SPOKE TO SUPERVISOR FURNACE ROOM THAT PT WILL BE GOING HOME.PT LEFT WTHOUT PAPERWORK.PT WENT WITH SON.CHARGE NURSE EDMOND IS AWARE THAT PT LFT WITHOUT DISCHARGE INSTRUCTION.
== END 2018-12-01 15:41 | disposition home or self-care (01) ==
LOC: ER 11:06
DX: E86.0 Dehydration (principal); R53.1 Weakness; I10 Essential (primary) hypertension; K21.9 Gastro-esophageal reflux disease without esophagitis; E11.9 Type 2 diabetes mellitus without complications; F32.9 Major depressive disorder, single episode, unspecified; Z98.61 Coronary angioplasty status; Z98.890 Other specified postprocedural states; Z79.82 Long term (current) use of aspirin; Z79.899 Other long term (current) drug therapy
CPT/HCPCS: 36415; 80053; 81003; 84484; 85025; 99284

== ENCOUNTER 2018-12-08 10:24 | Emergency (ER) | payer MEDICARE, OTHER ==
[~2018-12-08] VITALS: Ht 167.6 cm; Wt 70.3 kg
[2018-12-08] MEDS ORDERED: normal saline 1000ML IV soln IVB ONE (10:35)
[2018-12-08 10:45] VITALS: BP 158/93
[2018-12-08 10:55] LABS: BASOPHILS # (AUTO) 0.1 X10'3 (0-0.2); BASOPHILS % (AUTO) 0.7 % (0-1); EOSINOPHILS # (AUTO) 0.2 X10'3 (0-0.9); EOSINOPHILS % (AUTO) 2.1 % (0-6); HEMATOCRIT 45.2 % (42.0-52.0); HEMOGLOBIN 14.9 g/dl (14.0-17.9); LYMPHOCYTES # (AUTO) 1.2 X10'3 (1.1-4.8); LYMPHOCYTES % (AUTO) 13.6 % (21-51); MEAN CORPUSCULAR HEMOGLOBIN 30.2 PG (27.0-31.0); MEAN CORPUSCULAR HGB CONC 32.9 g/dL (33.0-36.5); MEAN CORPUSCULAR VOLUME 91.8 FL (78-98); MONOCYTES % (AUTO) 10.8 % (2-12); NEUTROPHILS # (AUTO) 6.5 X10'3 (1.8-7.7); NEUTROPHILS % (AUTO) 72.8 % (42-75); PLATELET COUNT 415 X10'3 (140-440); RED BLOOD COUNT 4.93 X10'6 (4.70-6.10); RED CELL DISTRIBUTION WIDTH 14.5 % (11.5-14.5); WHITE BLOOD COUNT 8.9 X10'3 (4.5-11.0)
[2018-12-08 11:15] LABS: ALANINE AMINOTRANSFERASE 28 U/L (12-78); ALBUMIN 3.6 G/DL (3.4-5.0); ALBUMIN/GLOBULIN RATIO 1.1 (1.1-1.5); ALKALINE PHOSPHATASE 76 IU/L (46-116); ANION GAP 10 (8-16); ASPARTATE AMINO TRANSFERASE 19 U/L (10-37); BILIRUBIN,TOTAL 0.6 MG/DL (0.1-1.0); BLOOD UREA NITROGEN 9 MG/DL (7-18); BUN/CREATININE RATIO 14.5 (5.4-32.0); CALCIUM 8.9 MG/DL (8.5-10.1); CHLORIDE 103 MMOL/L (99-107); CREATINE KINASE 87 U/L (39-308); CREATININE 0.62 MG/DL (0.60-1.10); GLUCOSE 161 MG/DL (70-104); POTASSIUM 3.8 MMOL/L (3.5-5.1); SODIUM 138 MMOL/L (135-145); TOTAL CARBON DIOXIDE 24.7 MMOL/L (24-32); TROPONIN I < 0.04 NG/ML (0.0-0.05); eGFR > 90 ML/MIN
[2018-12-08 11:20] LABS: COLOR,URINE YELLOW (Yellow); GLUCOSE, URINE NEGATIVE (Neg); KETONES,URINE TRACE mg/dl (Neg); LEUKOCYTE ESTERASE ,URINE TRACE (Neg); NITRITES, URINE NEGATIVE (Neg); OCCULT BLOOD,URINE NEGATIVE (Neg); PROTEIN,URINE NEGATIVE (Neg); UROBILINOGEN,URINE 0.2 E.U/dL (0.2-1.0)
[2018-12-08 11:37] LABS: CLARITY,URINE SLIGHTLY CLOUDY (Clear); UA COLLECTION TYPE CLN CATCH MIDSTREAM
[2018-12-08 11:39] LABS: SQUAMOUS EPITHELIAL CELL,UR FEW /LPF (FEW); TRANSITIONAL EPI CELLS,URINE FEW /HPF
[2018-12-08 11:40] LABS: BACTERIA,URINE FEW /HPF (Neg); RBC,URINE 0-2 /HPF (0-2); WBC,URINE 0-4 /HPF (0-4)
[2018-12-08] MEDS ORDERED: BISA-155 PO (11:50)
[2018-12-08] MEDS ORDERED: MAGN296S50 PO (11:50)
[2018-12-08] MEDS ORDERED: FLO0.4C PO (16:54)
[2018-12-09] MEDS ORDERED: PRED5TAB PO (23:50)
== END 2018-12-08 12:19 | disposition home or self-care (01) ==
LOC: ER 10:24
DX: R53.1 Weakness (principal); K59.00 Constipation, unspecified; I10 Essential (primary) hypertension; I25.2 Old myocardial infarction; K21.9 Gastro-esophageal reflux disease without esophagitis; E11.9 Type 2 diabetes mellitus without complications; F32.9 Major depressive disorder, single episode, unspecified; Z98.61 Coronary angioplasty status; Z79.82 Long term (current) use of aspirin; Z79.899 Other long term (current) drug therapy; Z98.890 Other specified postprocedural states; W18.39XA Other fall on same level, initial encounter; Y93.89 Activity, other specified; Y92.89 Other specified places as the place of occurrence of the external cause; Y99.8 Other external cause status
CPT/HCPCS: 99284; J7030; 36415; 71045; 80053; 81001; 82550; 84484; 85025; 87088; 93005

== ENCOUNTER 2018-12-08 14:48 | Emergency (ER) | payer MEDICARE, OTHER ==
[~2018-12-08] VITALS: Ht 170.2 cm; Wt 91.0 kg
[~2018-12-08 14:48] MED LIST changes: +BISA-155 PO; +MAGN296S50 PO
[2018-12-08] MEDS ORDERED: FLO0.4C PO (16:54)
[2018-12-08 18:00] VITALS: BP 120/87
[2018-12-09] MEDS ORDERED: PRED5TAB PO (23:50)
== END 2018-12-08 18:06 | disposition home or self-care (01) ==
LOC: ER 14:48
DX: R33.9 Retention of urine, unspecified (principal); I10 Essential (primary) hypertension; I25.2 Old myocardial infarction; K21.9 Gastro-esophageal reflux disease without esophagitis; E11.9 Type 2 diabetes mellitus without complications; F32.9 Major depressive disorder, single episode, unspecified; Z98.61 Coronary angioplasty status; Z98.890 Other specified postprocedural states; Z79.82 Long term (current) use of aspirin; Z79.899 Other long term (current) drug therapy
CPT/HCPCS: 74176; 99284

== ENCOUNTER 2018-12-09 19:36 | Inpatient (IN) | payer MEDICARE, OTHER ==
[~2018-12-09] VITALS: Ht 167.6 cm; Wt 73.0 kg
[~2018-12-09 19:36] MED LIST changes: +FLO0.4C PO
[2018-12-09 20:27] LABS: BASOPHILS # (AUTO) 0.1 X10'3 (0-0.2); BASOPHILS % (AUTO) 0.5 % (0-1); EOSINOPHILS # (AUTO) 0.2 X10'3 (0-0.9); EOSINOPHILS % (AUTO) 1.1 % (0-6); HEMATOCRIT 40.4 % (42.0-52.0); HEMOGLOBIN 13.6 g/dl (14.0-17.9); LYMPHOCYTES # (AUTO) 1.3 X10'3 (1.1-4.8); LYMPHOCYTES % (AUTO) 8.3 % (21-51); MEAN CORPUSCULAR HEMOGLOBIN 30.5 PG (27.0-31.0); MEAN CORPUSCULAR HGB CONC 33.6 g/dL (33.0-36.5); MEAN CORPUSCULAR VOLUME 90.7 FL (78-98); MEAN PLATELET VOLUME 6.9 FL (7.4-10.4); MONOCYTES # (AUTO) 1.7 X10'3 (0-0.9); MONOCYTES % (AUTO) 10.6 % (2-12); NEUTROPHILS # (AUTO) 12.4 X10'3 (1.8-7.7); NEUTROPHILS % (AUTO) 79.5 % (42-75); PLATELET COUNT 386 X10'3 (140-440); RED BLOOD COUNT 4.46 X10'6 (4.70-6.10); RED CELL DISTRIBUTION WIDTH 14.5 % (11.5-14.5); WHITE BLOOD COUNT 15.6 X10'3 (4.5-11.0)
[2018-12-09 20:35] LABS: ALANINE AMINOTRANSFERASE 27 U/L (12-78); ALBUMIN 3.1 G/DL (3.4-5.0); ALKALINE PHOSPHATASE 64 IU/L (46-116); ANION GAP 8 (8-16); ASPARTATE AMINO TRANSFERASE 16 U/L (10-37); BILIRUBIN,TOTAL 0.7 MG/DL (0.1-1.0); BLOOD UREA NITROGEN 12 MG/DL (7-18); BUN/CREATININE RATIO 21.1 (5.4-32.0); CALCIUM 8.5 MG/DL (8.5-10.1); CHLORIDE 106 MMOL/L (99-107); CREATININE 0.57 MG/DL (0.60-1.10); GLUCOSE 147 MG/DL (70-104); POTASSIUM 3.5 MMOL/L (3.5-5.1); SODIUM 138 MMOL/L (135-145); TOTAL CARBON DIOXIDE 23.9 MMOL/L (24-32); TOTAL PROTEIN 6.1 G/DL (6.4-8.2); eGFR > 90 ML/MIN
[2018-12-09 20:43] LABS: MAGNESIUM 2.1 MG/DL (1.5-2.4); PHOSPHORUS 1.9 MG/DL (2.3-4.5)
[2018-12-09] MEDS ORDERED: CefTRIAXone 2gm/D5W 50ml 50 ML IV ONE (21:10)
[2018-12-09 21:23] LABS: CLARITY,URINE CLEAR (Clear); COLOR,URINE YELLOW (Yellow); GLUCOSE, URINE NEGATIVE (Neg); KETONES,URINE 15 mg/dl (Neg); LEUKOCYTE ESTERASE ,URINE MODERATE (Neg); NITRITES, URINE NEGATIVE (Neg); OCCULT BLOOD,URINE LARGE (Neg); PROTEIN,URINE 30 mg/dl (Neg); UROBILINOGEN,URINE 0.2 E.U/dL (0.2-1.0)
[2018-12-09] MEDS ORDERED: insulin Lispro (HumaLOG) vial - multi-dose SQ SCH (21:25)
[2018-12-09] MEDS ORDERED: MESSAGE TO PHARMACY PO ONE (21:25)
[2018-12-09] MEDS ORDERED: morphine 2 MG/ML inj. syringe IV PRN ×2 (21:25)
[2018-12-09] MEDS ORDERED: dextrose 50%-water 50ml dispensing syringe IV PRN ×2 (21:25)
[2018-12-09] MEDS ORDERED: dextrose ORAL solution 15 GM/59 ML bottle PO PRN ×2 (21:25)
[2018-12-09] MEDS ORDERED: acetaminophen 325mg tablet PO PRN ×2 (21:25)
[2018-12-09] MEDS ORDERED: glucagon, human recombinant 1mg kit SUBCUT PRN (21:25)
[2018-12-09 21:31] LABS: UA COLLECTION TYPE FOLEY CATH
[2018-12-09 21:33] LABS: BACTERIA,URINE 2+ /HPF (Neg); CAL OXALATE CRYSTALS 3+ /HPF (NEGATIVE); MUCUS STRANDS MODERATE /LPF (Neg); SQUAMOUS EPITHELIAL CELL,UR FEW /LPF (FEW)
[2018-12-09 21:50] LABS: HEMOGLOBIN A1C 6.3 % (4.5-6.2)
--- NOTE | 2018-12-09 21:52 | NUR ---
Patient in room . I have received report from TREY CHAVEZ RN and had the opportunity to ask questions and assume patient care.
--- NOTE | 2018-12-09 22:18 | NUR ---
patient arrived at the floor via gurney from ER and transferred from bed. VS stable, c/o back pain, skin assessed with no open wounds found, non-blanchable redness on inner buttocks. has f/c and stated has f/c
[2018-12-09] MEDS: normal saline 1000ml 1,000 ML IV SCH (22:20)
[2018-12-09 23:00] VITALS: BP_SYST 125; BP_SYST 141; BP_DIAS 72; BP_DIAS 76
[2018-12-09] MEDS ORDERED: PRED5TAB PO (23:50)
--- NOTE | 2018-12-10 00:02 | NUR ---
patient was seen by Dr. Ho,
[2018-12-10] MEDS ORDERED: Neutra Phos packet PO PRN (00:10)
[2018-12-10] MEDS ORDERED: sodium phosphate inj. 30 MMOL in dextrose 5%-water 250 ML IV PRN (00:10)
[2018-12-10] MEDS ORDERED: sodium phosphate inj. 15 MMOL in dextrose 5%-water 150 ML IV PRN (00:10)
[2018-12-10] MEDS: risperiDONE 2mg tablet PO SCH ×2 (00:51→21:15)
[2018-12-10] MEDS: oxyCODONE IR 5mg (immed. release) tablet PO SCH ×4 (00:51→23:18)
--- NOTE | 2018-12-10 02:09 | NUR ---
patient c/o pain on his bladder, pt assessed and c/o pain on palpation on his bladder and tenderness, also noted urine leaking onhis bed sheets. pt was bladder scanned and noted a volume of 528ml on his bladder. pt has f/c attached to dela cruz bag. will replaced f/c and continue to monitor.
--- NOTE | 2018-12-10 02:53 | NUR ---
Patient arrived from ER with f/c in place, noted leaking and patient c/o pain on his bladder. Bladder scanned noted of >500cc urine. New f/c inserted and patient tolerated well. noted a 400cc drainage. pt verbalized relief. In no acute distress Addendum: 12/10/18 at 0256 by Ev Linton RN Amended: Links added.
[2018-12-10 05:19] LABS: BASOPHILS # (AUTO) 0.1 X10'3 (0-0.2); BASOPHILS % (AUTO) 0.9 % (0-1); EOSINOPHILS # (AUTO) 0.3 X10'3 (0-0.9); EOSINOPHILS % (AUTO) 2.6 % (0-6); HEMATOCRIT 38.2 % (42.0-52.0); HEMOGLOBIN 12.8 g/dl (14.0-17.9); LYMPHOCYTES # (AUTO) 1.6 X10'3 (1.1-4.8); LYMPHOCYTES % (AUTO) 13.3 % (21-51); MEAN CORPUSCULAR HEMOGLOBIN 30.6 PG (27.0-31.0); MEAN CORPUSCULAR HGB CONC 33.5 g/dL (33.0-36.5); MEAN CORPUSCULAR VOLUME 91.3 FL (78-98); MEAN PLATELET VOLUME 7.3 FL (7.4-10.4); MONOCYTES # (AUTO) 1.3 X10'3 (0-0.9); MONOCYTES % (AUTO) 11.4 % (2-12); NEUTROPHILS # (AUTO) 8.5 X10'3 (1.8-7.7); NEUTROPHILS % (AUTO) 71.8 % (42-75); PLATELET COUNT 371 X10'3 (140-440); RED BLOOD COUNT 4.19 X10'6 (4.70-6.10); RED CELL DISTRIBUTION WIDTH 14.7 % (11.5-14.5); WHITE BLOOD COUNT 11.8 X10'3 (4.5-11.0)
[2018-12-10 05:22] LABS: ALBUMIN 2.7 G/DL (3.4-5.0); ANION GAP 5 (8-16); BLOOD UREA NITROGEN 6 MG/DL (7-18); BUN/CREATININE RATIO 10.9 (5.4-32.0); CALCIUM 8.4 MG/DL (8.5-10.1); CHLORIDE 108 MMOL/L (99-107); CREATININE 0.55 MG/DL (0.60-1.10); GLUCOSE 93 MG/DL (70-104); POTASSIUM 3.6 MMOL/L (3.5-5.1); SODIUM 141 MMOL/L (135-145); TOTAL CARBON DIOXIDE 28.1 MMOL/L (24-32); eGFR > 90 ML/MIN
--- NOTE | 2018-12-10 06:00 | NUR ---
Patient in room [facility]. I have received report from JD Link RN and had the opportunity to ask questions and assume patient care.
--- NOTE | 2018-12-10 06:21 | NUR ---
Problems reprioritized. Patient report given, questions answered & plan of care reviewed with MADHAVI Truong. Addendum: 12/10/18 at 0621 by Ev Linton RN Amended: Links added.
[2018-12-10 07:00] VITALS: BP 153/84
--- NOTE | 2018-12-10 08:00 | NUR ---
PT REFUSED TO STAND FOR ORTHOSTATIC VITALS
[2018-12-10] MEDS: metoprolol tartrate 25mg tablet PO SCH ×2 (08:09→19:50)
[2018-12-10] MEDS: tamsulosin 0.4mg capsule PO SCH (08:09)
[2018-12-10] MEDS: normal saline 1000ml 1,000 ML IV SCH ×2 (08:10→16:09)
[2018-12-10] MEDS: aspirin 81mg tab.chew PO SCH (08:10)
--- NOTE | 2018-12-10 08:11 | NUR ---
GAVE 10MG OXI IR. WATCHED PT SWALLOW MEDICATION AND DRINK WATER
--- NOTE | 2018-12-10 09:24 | NUR ---
TELE BOX CALLED AT 0920 STATING PT WAS RESTING IN THE 60'S AND HEART RATE JUMPED TO 100. IMMEDIATELY CHECKED HIS V/S. PT'S VITALS ARE BP 129/73 HR 90 02 98% RESP 17 PT SHOWS NO SIGNS OF DISTRESS, HE STATES I FEEL FINE I JUST HAVE A DRY MOUTH
[2018-12-10 11:00] VITALS: BP 141/83
--- NOTE | 2018-12-10 16:12 | NUR ---
GAVE OXI IR 10MG. PT TOOK MED AND SWALLOWED THEM
--- NOTE | 2018-12-10 18:05 | NUR ---
Patient in room [facility]. I have received report from Dionne HENDRICKSON and had the opportunity to ask questions and assume patient care.
[2018-12-10 20:00] VITALS: BP_SYST 143; BP_SYST 149; BP_DIAS 80; BP_DIAS 84
[2018-12-10] MEDS: insulin glargine (Lantus) pen - multi-dose SQ SCH (21:00)
[2018-12-11] VITALS: BP 116/69
[2018-12-11] MEDS: normal saline 1000ml 1,000 ML IV SCH ×2 (03:07→13:25)
[2018-12-11 05:54] LABS: BASOPHILS # (AUTO) 0.1 X10'3 (0-0.2); EOSINOPHILS # (AUTO) 0.4 X10'3 (0-0.9); EOSINOPHILS % (AUTO) 3.8 % (0-6); HEMATOCRIT 36.3 % (42.0-52.0); HEMOGLOBIN 12.1 g/dl (14.0-17.9); LYMPHOCYTES # (AUTO) 1.1 X10'3 (1.1-4.8); MEAN CORPUSCULAR HEMOGLOBIN 30.7 PG (27.0-31.0); MEAN CORPUSCULAR HGB CONC 33.5 g/dL (33.0-36.5); MEAN CORPUSCULAR VOLUME 91.8 FL (78-98); MEAN PLATELET VOLUME 7.5 FL (7.4-10.4); MONOCYTES # (AUTO) 1.2 X10'3 (0-0.9); MONOCYTES % (AUTO) 12.9 % (2-12); NEUTROPHILS # (AUTO) 6.7 X10'3 (1.8-7.7); NEUTROPHILS % (AUTO) 70.3 % (42-75); PLATELET COUNT 303 X10'3 (140-440); RED BLOOD COUNT 3.95 X10'6 (4.70-6.10); RED CELL DISTRIBUTION WIDTH 14.8 % (11.5-14.5); WHITE BLOOD COUNT 9.5 X10'3 (4.5-11.0)
[2018-12-11 06:19] LABS: ALBUMIN 2.4 G/DL (3.4-5.0); ANION GAP 10 (8-16); BLOOD UREA NITROGEN 7 MG/DL (7-18); BUN/CREATININE RATIO 14.9 (5.4-32.0); CALCIUM 7.8 MG/DL (8.5-10.1); CHLORIDE 110 MMOL/L (99-107); CREATININE 0.47 MG/DL (0.60-1.10); GLUCOSE 77 MG/DL (70-104); PHOSPHORUS 2.4 MG/DL (2.3-4.5); POTASSIUM 3.5 MMOL/L (3.5-5.1); SODIUM 143 MMOL/L (135-145); eGFR > 90 ML/MIN
--- NOTE | 2018-12-11 06:26 | NUR ---
Problems reprioritized. Patient report given, questions answered & plan of care reviewed with Dionne HENDRICKSON.
--- NOTE | 2018-12-11 06:45 | NUR ---
Patient in room [facility]. I have received report from BLANCA HENDRICKSON and had the opportunity to ask questions and assume patient care.
[2018-12-11 07:00] VITALS: BP 161/90
[2018-12-11] MEDS: metoprolol tartrate 25mg tablet PO SCH ×2 (07:35→19:28)
[2018-12-11] MEDS: oxyCODONE IR 5mg (immed. release) tablet PO SCH ×3 (07:35→23:22)
[2018-12-11] MEDS: tamsulosin 0.4mg capsule PO SCH (07:35)
[2018-12-11] MEDS: magnesium hydroxide 30ml (MOM) UD suspension PO PRN (07:39)
--- NOTE | 2018-12-11 07:41 | NUR ---
ADMIN 10MG OXI IR. WATCHED PT SWALLOW PILLS
[2018-12-11] MEDS: aspirin 81mg tab.chew PO SCH (08:00)
--- NOTE | 2018-12-11 09:11 | NUR ---
NASAL SWAB CAME BACK POSITIVE FOR MRSA. CHARGE NOTIFIED
[2018-12-11 12:05] VITALS: BP 149/70
--- NOTE | 2018-12-11 16:47 | NUR ---
PT REFUSED ORTHOSTATIC V/S THIS AM
--- NOTE | 2018-12-11 17:43 | NUR ---
Problems reprioritized. Patient report given, questions answered & plan of care reviewed with BLANCA HENDRICKSON.
--- NOTE | 2018-12-11 18:00 | NUR ---
Patient in room [facility]. I have received report from Dionne HENDRICKSON and had the opportunity to ask questions and assume patient care.
[2018-12-11] MEDS: docusate sod 100mg capsule PO SCH (19:27)
[2018-12-11 20:00] VITALS: BP 127/64
[2018-12-11] MEDS: insulin glargine (Lantus) pen - multi-dose SQ SCH (21:00)
[2018-12-11] MEDS: risperiDONE 2mg tablet PO SCH (21:08)
[2018-12-12] VITALS: BP 121/61
[2018-12-12] MEDS: normal saline 1000ml 1,000 ML IV SCH ×4 (00:01→22:30)
[2018-12-12] MEDS: HYDROcodone/acetaminophen 5mg/325mg tablet PO PRN (01:39)
[2018-12-12] MEDS: mag hydrox/Alum hydrox/simeth 30ml oral suspension PO PRN (02:29)
[2018-12-12 05:57] LABS: BASOPHILS # (AUTO) 0.1 X10'3 (0-0.2); BASOPHILS % (AUTO) 0.5 % (0-1); EOSINOPHILS # (AUTO) 0.3 X10'3 (0-0.9); EOSINOPHILS % (AUTO) 2.4 % (0-6); HEMATOCRIT 36.5 % (42.0-52.0); HEMOGLOBIN 12.2 g/dl (14.0-17.9); LYMPHOCYTES # (AUTO) 0.8 X10'3 (1.1-4.8); LYMPHOCYTES % (AUTO) 7.2 % (21-51); MEAN CORPUSCULAR HEMOGLOBIN 30.5 PG (27.0-31.0); MEAN CORPUSCULAR HGB CONC 33.5 g/dL (33.0-36.5); MEAN PLATELET VOLUME 7.6 FL (7.4-10.4); MONOCYTES # (AUTO) 1.1 X10'3 (0-0.9); MONOCYTES % (AUTO) 9.8 % (2-12); NEUTROPHILS % (AUTO) 80.1 % (42-75); PLATELET COUNT 334 X10'3 (140-440); RED BLOOD COUNT 4.02 X10'6 (4.70-6.10); RED CELL DISTRIBUTION WIDTH 14.6 % (11.5-14.5); WHITE BLOOD COUNT 11.3 X10'3 (4.5-11.0)
[2018-12-12 06:08] LABS: ALBUMIN 2.4 G/DL (3.4-5.0); ANION GAP 7 (8-16); BLOOD UREA NITROGEN 6 MG/DL (7-18); CALCIUM 7.8 MG/DL (8.5-10.1); CHLORIDE 109 MMOL/L (99-107); GLUCOSE 155 MG/DL (70-104); PHOSPHORUS 1.9 MG/DL (2.3-4.5); POTASSIUM 3.6 MMOL/L (3.5-5.1); SODIUM 141 MMOL/L (135-145); TOTAL CARBON DIOXIDE 24.7 MMOL/L (24-32); eGFR > 90 ML/MIN
--- NOTE | 2018-12-12 06:41 | NUR ---
Problems reprioritized. Patient report given, questions answered & plan of care reviewed with Dian HENDRICKSON.
[2018-12-12 07:00] VITALS: BP 143/77
[2018-12-12] MEDS: aspirin 81mg tab.chew PO SCH ×2 (08:00→08:31)
[2018-12-12] MEDS: metoprolol tartrate 25mg tablet PO SCH ×2 (08:30→19:50)
[2018-12-12] MEDS: docusate sod 100mg capsule PO SCH ×2 (08:30→19:50)
[2018-12-12] MEDS: magnesium hydroxide 30ml (MOM) UD suspension PO PRN (08:30)
[2018-12-12] MEDS: oxyCODONE IR 5mg (immed. release) tablet PO SCH ×3 (08:31→23:41)
[2018-12-12] MEDS: tamsulosin 0.4mg capsule PO SCH (08:31)
[2018-12-12 12:00] VITALS: BP 121/68
[2018-12-12] MEDS: bisacodyl 10mg suppository rectal RC PRN (16:21)
--- NOTE | 2018-12-12 18:24 | NUR ---
Patient in room [facility]. I have received report from Sobeida HENDRICKSON and had the opportunity to ask questions and assume patient care.
[2018-12-12] MEDS: risperiDONE 2mg tablet PO SCH (19:50)
[2018-12-12] MEDS: insulin glargine (Lantus) pen - multi-dose SQ SCH (19:52)
[2018-12-12 20:00] VITALS: BP 157/85
[2018-12-13] VITALS: BP 157/73
[2018-12-13 05:29] LABS: BASOPHILS % (AUTO) 0.5 % (0-1); EOSINOPHILS # (AUTO) 0.3 X10'3 (0-0.9); EOSINOPHILS % (AUTO) 3.1 % (0-6); HEMATOCRIT 38.4 % (42.0-52.0); HEMOGLOBIN 13.1 g/dl (14.0-17.9); LYMPHOCYTES # (AUTO) 1.3 X10'3 (1.1-4.8); LYMPHOCYTES % (AUTO) 12.6 % (21-51); MEAN CORPUSCULAR HEMOGLOBIN 30.9 PG (27.0-31.0); MEAN CORPUSCULAR VOLUME 90.8 FL (78-98); MEAN PLATELET VOLUME 7.2 FL (7.4-10.4); MONOCYTES # (AUTO) 1.1 X10'3 (0-0.9); MONOCYTES % (AUTO) 10.5 % (2-12); NEUTROPHILS # (AUTO) 7.5 X10'3 (1.8-7.7); NEUTROPHILS % (AUTO) 73.3 % (42-75); PLATELET COUNT 334 X10'3 (140-440); RED BLOOD COUNT 4.23 X10'6 (4.70-6.10); RED CELL DISTRIBUTION WIDTH 14.5 % (11.5-14.5); WHITE BLOOD COUNT 10.3 X10'3 (4.5-11.0)
[2018-12-13 05:41] LABS: ALBUMIN 2.7 G/DL (3.4-5.0); ANION GAP 6 (8-16); BLOOD UREA NITROGEN 3 MG/DL (7-18); BUN/CREATININE RATIO 6.5 (5.4-32.0); CALCIUM 7.9 MG/DL (8.5-10.1); CHLORIDE 109 MMOL/L (99-107); CREATININE 0.46 MG/DL (0.60-1.10); GLUCOSE 102 MG/DL (70-104); PHOSPHORUS 2.3 MG/DL (2.3-4.5); SODIUM 141 MMOL/L (135-145); TOTAL CARBON DIOXIDE 26.1 MMOL/L (24-32); eGFR > 90 ML/MIN
--- NOTE | 2018-12-13 06:34 | NUR ---
Problems reprioritized. Patient report given, questions answered & plan of care reviewed with Jazmin HENDRICKSON.
--- NOTE | 2018-12-13 06:34 | NUR ---
Patient in room [facility]. I have received report from sb reed and had the opportunity to ask questions and assume patient care.
[2018-12-13 07:00] VITALS: BP 152/78
[2018-12-13] MEDS: tamsulosin 0.4mg capsule PO SCH (07:31)
[2018-12-13] MEDS: metoprolol tartrate 25mg tablet PO SCH ×2 (07:31→21:11)
[2018-12-13] MEDS: magnesium hydroxide 30ml (MOM) UD suspension PO PRN (07:32)
[2018-12-13] MEDS: oxyCODONE IR 5mg (immed. release) tablet PO SCH ×2 (07:32→16:34)
[2018-12-13] MEDS: docusate sod 100mg capsule PO SCH ×2 (07:32→21:11)
[2018-12-13] MEDS: normal saline 1000ml 1,000 ML IV SCH (07:34)
[2018-12-13] MEDS: aspirin 81mg tab.chew PO SCH (08:00)
[2018-12-13] MEDS ORDERED: magnesium Cl slow-release 64mg tablet PO PRN (10:35)
[2018-12-13] MEDS ORDERED: potassium Cl 20 mEq SR tablet PO PRN ×2 (10:35)
[2018-12-13] MEDS ORDERED: magnesium 4gm in 100ml NS 100 ML IV PRN (10:35)
[2018-12-13] MEDS ORDERED: potassium CL 10mEq/100ml bag 100 ML IV PRN (10:35)
[2018-12-13] MEDS: predniSONE 5mg tablet PO SCH (11:02)
[2018-12-13 12:07] VITALS: BP 131/72
[2018-12-13] MEDS: bisacodyl 10mg suppository rectal RC PRN (13:49)
--- NOTE | 2018-12-13 18:24 | NUR ---
Problems reprioritized. Patient report given, questions answered & plan of care reviewed with SIDNEY HENDRICKSON.
--- NOTE | 2018-12-13 19:01 | NUR ---
PER DR RAMOS DICKERSON CATH IS NOT TO BE PLACED.
--- NOTE | 2018-12-13 19:28 | NUR ---
Patient in room [facility]. I have received report from Jazmin HENDRICKSON and had the opportunity to ask questions and assume patient care.
--- NOTE | 2018-12-13 19:29 | NUR ---
Bladder scan showed pt had over 750cc in bladder, Straight cathed per order and removed 925cc. Pt pain was 10/10 and blood pressure was 170/98, pt is normally closer to normotensive. Pt states he has been having difficulty urinating for the last couple weeks and constantly feels the urge to void with no success when the catheter is not in place. He is refusing to have the catheter removed at this point in time and wants to follow up with urology regarding his difficulty urinating. Will contact hospitalist regarding his concerns.
[2018-12-13 20:00] VITALS: BP 170/98
--- NOTE | 2018-12-13 20:17 | NUR ---
Spoke with Dr. Olivo regarding pts desire to keep dela cruz in place. She told me to remove dela cruz per Dr. Cano's orders. I notified pt that dela cruz needed to be removed per MD orders and he refused to have the dela cruz taken out. BP 136/82 down from 170/98, pt pain 0/10 was 10/10.
[2018-12-13] MEDS: insulin glargine (Lantus) pen - multi-dose SQ SCH (21:00)
[2018-12-13] MEDS: risperiDONE 2mg tablet PO SCH (21:10)
[2018-12-14] VITALS: BP_SYST 120; BP_SYST 147; BP_DIAS 72; BP_DIAS 79
[2018-12-14] MEDS: oxyCODONE IR 5mg (immed. release) tablet PO SCH ×3 (00:10→16:00)
[2018-12-14] MEDS: normal saline 1000ml 1,000 ML IV SCH ×3 (01:25→18:01)
[2018-12-14] MEDS: mag hydrox/Alum hydrox/simeth 30ml oral suspension PO PRN (02:30)
[2018-12-14 06:22] LABS: BASOPHILS % (AUTO) 0.3 % (0-1); EOSINOPHILS # (AUTO) 0.1 X10'3 (0-0.9); EOSINOPHILS % (AUTO) 0.8 % (0-6); HEMATOCRIT 40.2 % (42.0-52.0); HEMOGLOBIN 13.7 g/dl (14.0-17.9); LYMPHOCYTES # (AUTO) 0.8 X10'3 (1.1-4.8); LYMPHOCYTES % (AUTO) 5.7 % (21-51); MEAN CORPUSCULAR HEMOGLOBIN 30.8 PG (27.0-31.0); MEAN CORPUSCULAR HGB CONC 34.1 g/dL (33.0-36.5); MEAN CORPUSCULAR VOLUME 90.3 FL (78-98); MEAN PLATELET VOLUME 7.6 FL (7.4-10.4); MONOCYTES # (AUTO) 1.3 X10'3 (0-0.9); MONOCYTES % (AUTO) 9.4 % (2-12); NEUTROPHILS # (AUTO) 11.9 X10'3 (1.8-7.7); NEUTROPHILS % (AUTO) 83.8 % (42-75); PLATELET COUNT 373 X10'3 (140-440); RED BLOOD COUNT 4.45 X10'6 (4.70-6.10); RED CELL DISTRIBUTION WIDTH 14.7 % (11.5-14.5); WHITE BLOOD COUNT 14.2 X10'3 (4.5-11.0)
[2018-12-14 06:32] LABS: ALBUMIN 2.7 G/DL (3.4-5.0); ANION GAP 9 (8-16); BLOOD UREA NITROGEN 5 MG/DL (7-18); BUN/CREATININE RATIO 10.2 (5.4-32.0); CALCIUM 8.2 MG/DL (8.5-10.1); CHLORIDE 105 MMOL/L (99-107); CREATINE KINASE 46 U/L (39-308); CREATININE 0.49 MG/DL (0.60-1.10); GLUCOSE 134 MG/DL (70-104); MAGNESIUM 2.3 MG/DL (1.5-2.4); PHOSPHORUS 2.5 MG/DL (2.3-4.5); POTASSIUM 3.7 MMOL/L (3.5-5.1); SODIUM 142 MMOL/L (135-145); TOTAL CARBON DIOXIDE 28.3 MMOL/L (24-32); eGFR > 90 ML/MIN
--- NOTE | 2018-12-14 06:52 | NUR ---
Problems reprioritized. Patient report given, questions answered & plan of care reviewed with Skye HENDRICKSON.
[2018-12-14 08:00] VITALS: BP 122/81
[2018-12-14] MEDS: aspirin 81mg tab.chew PO SCH (08:00)
[2018-12-14] MEDS: tamsulosin 0.4mg capsule PO SCH (08:35)
[2018-12-14] MEDS: predniSONE 5mg tablet PO SCH (08:35)
[2018-12-14] MEDS: metoprolol tartrate 25mg tablet PO SCH ×2 (08:35→21:31)
[2018-12-14] MEDS: docusate sod 100mg capsule PO SCH ×2 (08:36→21:31)
--- NOTE | 2018-12-14 10:42 | NUR ---
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 Pt on CHO controlled diet with documented 75-100% PO intake throughout LOS meeting nutrient needs. Pt previously without a BM x 4 days with routine and PRN bowel care, given Dulcolax suppository. LBM 12/13. No edema or wounds. No nutrition diagnosis at this time. Will continue to follow. Recommendations: 1) Continue CHO controlled diet 2) Routine bowel care 3) Wt per rx Addendum: 12/14/18 at [address] Amended: Links added.
[2018-12-14 11:00] VITALS: BP 144/85
[2018-12-14] MEDS: CefTRIAXone/D5W-Rocephin 1gm 50 ML IV SCH (13:15)
[2018-12-14 19:00] VITALS: BP 117/72
--- NOTE | 2018-12-14 19:06 | NUR ---
Problems reprioritized. Patient report given, questions answered & plan of care reviewed with MADHAVI Dye.
--- NOTE | 2018-12-14 19:08 | NUR ---
Patient in room [facility]. I have received report from Skye HENDRICKSON and had the opportunity to ask questions and assume patient care.
[2018-12-14 20:21] VITALS: BP 117/72
[2018-12-14] MEDS: insulin glargine (Lantus) pen - multi-dose SQ SCH (21:00)
[2018-12-14] MEDS: lactobacillus rhamnosus 10,000 MMU CELLS/CAPSULE PO SCH (21:31)
[2018-12-14] MEDS: risperiDONE 2mg tablet PO SCH (21:31)
[2018-12-15 00:20] VITALS: BP 148/86
[2018-12-15] MEDS: mag hydrox/Alum hydrox/simeth 30ml oral suspension PO PRN ×2 (03:05→11:29)
[2018-12-15 05:18] LABS: BASOPHILS # (AUTO) 0.1 X10'3 (0-0.2); BASOPHILS % (AUTO) 0.4 % (0-1); EOSINOPHILS # (AUTO) 0.2 X10'3 (0-0.9); EOSINOPHILS % (AUTO) 1.5 % (0-6); HEMATOCRIT 38.8 % (42.0-52.0); HEMOGLOBIN 13.3 g/dl (14.0-17.9); LYMPHOCYTES % (AUTO) 6.4 % (21-51); MEAN CORPUSCULAR HEMOGLOBIN 30.8 PG (27.0-31.0); MEAN CORPUSCULAR HGB CONC 34.3 g/dL (33.0-36.5); MEAN CORPUSCULAR VOLUME 89.7 FL (78-98); MEAN PLATELET VOLUME 7.6 FL (7.4-10.4); MONOCYTES # (AUTO) 1.4 X10'3 (0-0.9); MONOCYTES % (AUTO) 8.8 % (2-12); NEUTROPHILS # (AUTO) 13.1 X10'3 (1.8-7.7); NEUTROPHILS % (AUTO) 82.9 % (42-75); PLATELET COUNT 327 X10'3 (140-440); RED BLOOD COUNT 4.32 X10'6 (4.70-6.10); RED CELL DISTRIBUTION WIDTH 14.5 % (11.5-14.5); WHITE BLOOD COUNT 15.8 X10'3 (4.5-11.0)
[2018-12-15 05:40] LABS: ALANINE AMINOTRANSFERASE 18 U/L (12-78); ALBUMIN 2.6 G/DL (3.4-5.0); ALBUMIN/GLOBULIN RATIO 0.8 (1.1-1.5); ALKALINE PHOSPHATASE 65 IU/L (46-116); ANION GAP 8 (8-16); ASPARTATE AMINO TRANSFERASE 15 U/L (10-37); BILIRUBIN,TOTAL 0.7 MG/DL (0.1-1.0); BLOOD UREA NITROGEN 9 MG/DL (7-18); BUN/CREATININE RATIO 17.6 (5.4-32.0); CALCIUM 7.9 MG/DL (8.5-10.1); CHLORIDE 104 MMOL/L (99-107); CREATININE 0.51 MG/DL (0.60-1.10); GLUCOSE 109 MG/DL (70-104); PHOSPHORUS 2.3 MG/DL (2.3-4.5); POTASSIUM 3.8 MMOL/L (3.5-5.1); SODIUM 137 MMOL/L (135-145); TOTAL CARBON DIOXIDE 24.9 MMOL/L (24-32); TOTAL PROTEIN 5.8 G/DL (6.4-8.2); eGFR > 90 ML/MIN
--- NOTE | 2018-12-15 06:05 | NUR ---
Problems reprioritized. Patient report given, questions answered & plan of care reviewed with Sobeida HENDRICKSON.
[2018-12-15 07:00] VITALS: BP 169/87
[2018-12-15] MEDS: aspirin 81mg tab.chew PO SCH (08:00)
[2018-12-15] MEDS: docusate sod 100mg capsule PO SCH ×2 (08:36→20:00)
[2018-12-15] MEDS: predniSONE 5mg tablet PO SCH (08:36)
[2018-12-15] MEDS: lactobacillus rhamnosus 10,000 MMU CELLS/CAPSULE PO SCH ×2 (08:36→20:00)
[2018-12-15] MEDS: tamsulosin 0.4mg capsule PO SCH (08:37)
[2018-12-15] MEDS: oxyCODONE IR 5mg (immed. release) tablet PO SCH ×4 (08:37→23:04)
[2018-12-15] MEDS: metoprolol tartrate 25mg tablet PO SCH ×2 (08:37→20:00)
[2018-12-15] MEDS: CefTRIAXone/D5W-Rocephin 1gm 50 ML IV SCH (08:38)
[2018-12-15] MEDS ORDERED: CEFD300C3 PO (09:28)
[2018-12-15] MEDS ORDERED: COL100C PO (09:28)
[2018-12-15] MEDS ORDERED: LACT1CAP26 PO (09:28)
[2018-12-15] MEDS ORDERED: MAGN400O6 PO (09:28)
[2018-12-15] MEDS ORDERED: BISA10SU11 RC (09:28)
[2018-12-15 11:00] VITALS: BP 132/89
[2018-12-15] MEDS ORDERED: pantoprazole 40mg Tablet.DR PO SCH (11:30)
[2018-12-15] MEDS: ondansetron/PF 4mg/2ml inj IV PRN ×2 (11:53→17:54)
[2018-12-15] MEDS ORDERED: ESOMEPRAZOLE 40 MG VIAL IV SCH (14:06)
[2018-12-15 14:46] LABS: GASTRIC OCCULT BLOOD NEGATIVE (Neg)
[2018-12-15] MEDS ORDERED: oxyCODONE IR 5mg (immed. release) tablet PO ONE (17:05)
[2018-12-15 18:00] VITALS: BP 107/65
[2018-12-15] MEDS: pantoprazole 40mg Tablet.DR PO SCH ×2 (20:00→23:03)
[2018-12-15] MEDS: metoclopramide 5 mg/ml inj IV PRN (20:47)
[2018-12-15] MEDS: risperiDONE 2mg tablet PO SCH (21:00)
[2018-12-15] MEDS: insulin glargine (Lantus) pen - multi-dose SQ SCH (21:00)
--- NOTE | 2018-12-15 21:01 | NUR ---
Patient in room [facility]. I have received report from MADHAVI Vidales and had the opportunity to ask questions and assume patient care. Addendum: 12/15/18 at 2109 by Venessa Al RN Amended: Links added.
--- NOTE | 2018-12-15 21:04 | NUR ---
pt. nauseated Addendum: 12/15/18 at 2109 by Venessa Al RN Amended: Links added.
[2018-12-16 00:03] VITALS: BP 100/60
[2018-12-16] MEDS: ondansetron/PF 4mg/2ml inj IV PRN ×2 (00:13→08:57)
[2018-12-16] MEDS: normal saline 1000ml 1,000 ML IV SCH ×2 (02:01→03:49)
[2018-12-16] MEDS: metoclopramide 5 mg/ml inj IV PRN (03:48)
--- NOTE | 2018-12-16 06:19 | NUR ---
Problems reprioritized. Patient report given, questions answered & plan of care reviewed with MADHAVI Vidales. Addendum: 12/16/18 at 0625 by Venessa Al RN Amended: Links added.
[2018-12-16 06:20] LABS: BASOPHILS # (AUTO) 0.1 X10'3 (0-0.2); BASOPHILS % (AUTO) 0.3 % (0-1); EOSINOPHILS % (AUTO) 0 % (0-6); HEMATOCRIT 41.2 % (42.0-52.0); HEMOGLOBIN 13.9 g/dl (14.0-17.9); LYMPHOCYTES # (AUTO) 0.5 X10'3 (1.1-4.8); LYMPHOCYTES % (AUTO) 2.3 % (21-51); MEAN CORPUSCULAR HEMOGLOBIN 30.5 PG (27.0-31.0); MEAN CORPUSCULAR HGB CONC 33.7 g/dL (33.0-36.5); MEAN CORPUSCULAR VOLUME 90.6 FL (78-98); MEAN PLATELET VOLUME 7.8 FL (7.4-10.4); MONOCYTES # (AUTO) 2.3 X10'3 (0-0.9); MONOCYTES % (AUTO) 9.6 % (2-12); NEUTROPHILS # (AUTO) 20.6 X10'3 (1.8-7.7); NEUTROPHILS % (AUTO) 87.8 % (42-75); PLATELET COUNT 364 X10'3 (140-440); RED BLOOD COUNT 4.55 X10'6 (4.70-6.10); WHITE BLOOD COUNT 23.5 X10'3 (4.5-11.0)
[2018-12-16 06:32] LABS: ALANINE AMINOTRANSFERASE 16 U/L (12-78); ALBUMIN 2.5 G/DL (3.4-5.0); ALBUMIN/GLOBULIN RATIO 0.8 (1.1-1.5); ALKALINE PHOSPHATASE 62 IU/L (46-116); ANION GAP 10 (8-16); ASPARTATE AMINO TRANSFERASE 14 U/L (10-37); BILIRUBIN,TOTAL 0.8 MG/DL (0.1-1.0); BLOOD UREA NITROGEN 19 MG/DL (7-18); BUN/CREATININE RATIO 32.8 (5.4-32.0); CALCIUM 8.6 MG/DL (8.5-10.1); CHLORIDE 104 MMOL/L (99-107); CREATININE 0.58 MG/DL (0.60-1.10); GLUCOSE 112 MG/DL (70-104); MAGNESIUM 2.2 MG/DL (1.5-2.4); PHOSPHORUS 3.7 MG/DL (2.3-4.5); POTASSIUM 3.4 MMOL/L (3.5-5.1); SODIUM 140 MMOL/L (135-145); TOTAL CARBON DIOXIDE 25.6 MMOL/L (24-32); TOTAL PROTEIN 5.8 G/DL (6.4-8.2); eGFR > 90 ML/MIN
[2018-12-16 08:00] VITALS: BP 121/56
[2018-12-16] MEDS: aspirin 81mg tab.chew PO SCH (08:00)
[2018-12-16] MEDS: lactobacillus rhamnosus 10,000 MMU CELLS/CAPSULE PO SCH ×2 (08:00→20:58)
[2018-12-16] MEDS: CefTRIAXone/D5W-Rocephin 1gm 50 ML IV SCH (08:57)
[2018-12-16] MEDS: metoprolol tartrate 25mg tablet PO SCH ×2 (08:58→20:59)
[2018-12-16] MEDS: pantoprazole 40mg Tablet.DR PO SCH ×2 (08:58→20:59)
[2018-12-16] MEDS: oxyCODONE IR 5mg (immed. release) tablet PO SCH ×3 (08:58→23:36)
[2018-12-16] MEDS: predniSONE 5mg tablet PO SCH (08:58)
[2018-12-16] MEDS: tamsulosin 0.4mg capsule PO SCH (08:59)
[2018-12-16] MEDS: docusate sod 100mg capsule PO SCH ×2 (08:59→21:00)
[2018-12-16 10:54] LABS: TOTAL CELLS COUNTED 100
[2018-12-16 10:56] LABS: PLATELET ESTIMATE NORMAL; TOXIC GRANULATION 1+
[2018-12-16 11:00] VITALS: BP 117/63
[2018-12-16 11:24] LABS: BASOPHILS % (AUTO) 0.2 % (0-1); EOSINOPHILS % (AUTO) 0 % (0-6); HEMATOCRIT 38.6 % (42.0-52.0); LYMPHOCYTES # (AUTO) 0.6 X10'3 (1.1-4.8); LYMPHOCYTES % (AUTO) 2.6 % (21-51); MEAN CORPUSCULAR HEMOGLOBIN 30.5 PG (27.0-31.0); MEAN CORPUSCULAR HGB CONC 33.5 g/dL (33.0-36.5); MEAN PLATELET VOLUME 7.2 FL (7.4-10.4); MONOCYTES # (AUTO) 2.1 X10'3 (0-0.9); MONOCYTES % (AUTO) 9.4 % (2-12); NEUTROPHILS # (AUTO) 19.9 X10'3 (1.8-7.7); NEUTROPHILS % (AUTO) 87.8 % (42-75); PLATELET COUNT 358 X10'3 (140-440); RED BLOOD COUNT 4.25 X10'6 (4.70-6.10); RED CELL DISTRIBUTION WIDTH 14.8 % (11.5-14.5); WHITE BLOOD COUNT 22.7 X10'3 (4.5-11.0)
[2018-12-16 13:20] LABS: % FREE PSA 16.5 % (.); PSA, FREE 2.71 ng/mL
--- NOTE | 2018-12-16 14:31 | NUR ---
Per dietary RN requesting shake for pt. Pt previously with 75-100% PO intake however pt hasn't been eating since 12/14 secondary to N/V. Pt documented with emesis x 16 over 24 hrs. Given low PO intake with emesis okay to have strawberry smoothie rather than shake as to not provide too many carbs, d/w dietary. Recommend Ensure Enlive TID to provide adequate kcal while low PO intake, notified MD. ONS to be sent pending MD verification in [facility]. Will continue to follow. Addendum: 12/16/18 at [address] Amended: Links added.
--- NOTE | 2018-12-16 17:31 | NUR ---
patient is refusing soap suds enema
[2018-12-16] MEDS ORDERED: bisacodyl 10mg suppository rectal RC STA (17:48)
[2018-12-16] MEDS ORDERED: lactose-reduced food (Ensure Enlive) - 237ml bottle PO SCH (18:00)
[2018-12-16 20:00] VITALS: BP 117/62
[2018-12-16] MEDS: diatr meglu/diatrizoate 30ml oral sol.-(3 dose) bottle PO SCH (20:58)
[2018-12-16] MEDS: lactulose 20gm/30ml cup PO SCH (20:58)
[2018-12-16] MEDS: heparin, porcine 5000 units/ml vial SQ SCH (21:00)
[2018-12-16] MEDS: risperiDONE 2mg tablet PO SCH (21:00)
[2018-12-16] MEDS: insulin glargine (Lantus) pen - multi-dose SQ SCH (21:00)
--- NOTE | 2018-12-16 22:42 | NUR ---
Patient in room [facility]. I have received report from MADHAVI Vidales and had the opportunity to ask questions and assume patient care. Addendum: 12/16/18 at 2248 by Venessa Al RN Amended: Links added.
[2018-12-16] MEDS: metroNIDAZOLE-Flagyl 500mg/NS 100 ML IV SCH (23:36)
[2018-12-17] VITALS: BP 114/69
[2018-12-17] MEDS: lactulose 20gm/30ml cup PO SCH ×4 (02:00→20:00)
[2018-12-17 05:53] LABS: BASOPHILS % (AUTO) 0.2 % (0-1); EOSINOPHILS # (AUTO) 0.1 X10'3 (0-0.9); EOSINOPHILS % (AUTO) 0.5 % (0-6); HEMATOCRIT 37.3 % (42.0-52.0); HEMOGLOBIN 12.2 g/dl (14.0-17.9); LYMPHOCYTES # (AUTO) 0.8 X10'3 (1.1-4.8); LYMPHOCYTES % (AUTO) 5.2 % (21-51); MEAN CORPUSCULAR HEMOGLOBIN 30.1 PG (27.0-31.0); MEAN CORPUSCULAR HGB CONC 32.8 g/dL (33.0-36.5); MEAN CORPUSCULAR VOLUME 91.7 FL (78-98); MEAN PLATELET VOLUME 7.6 FL (7.4-10.4); MONOCYTES # (AUTO) 1.8 X10'3 (0-0.9); MONOCYTES % (AUTO) 11.4 % (2-12); NEUTROPHILS # (AUTO) 12.9 X10'3 (1.8-7.7); NEUTROPHILS % (AUTO) 82.7 % (42-75); PLATELET COUNT 320 X10'3 (140-440); RED BLOOD COUNT 4.07 X10'6 (4.70-6.10); RED CELL DISTRIBUTION WIDTH 14.6 % (11.5-14.5); WHITE BLOOD COUNT 15.6 X10'3 (4.5-11.0)
[2018-12-17 06:00] VITALS: BP 116/68
[2018-12-17 06:13] LABS: ALANINE AMINOTRANSFERASE 16 U/L (12-78); ALBUMIN 2.3 G/DL (3.4-5.0); ALBUMIN/GLOBULIN RATIO 0.7 (1.1-1.5); ALKALINE PHOSPHATASE 54 IU/L (46-116); ANION GAP 8 (8-16); ASPARTATE AMINO TRANSFERASE 10 U/L (10-37); BILIRUBIN,TOTAL 0.5 MG/DL (0.1-1.0); BLOOD UREA NITROGEN 21 MG/DL (7-18); CALCIUM 8.2 MG/DL (8.5-10.1); CHLORIDE 106 MMOL/L (99-107); GLUCOSE 96 MG/DL (70-104); MAGNESIUM 1.9 MG/DL (1.5-2.4); PHOSPHORUS 2.5 MG/DL (2.3-4.5); SODIUM 139 MMOL/L (135-145); TOTAL CARBON DIOXIDE 25.2 MMOL/L (24-32); TOTAL PROTEIN 5.4 G/DL (6.4-8.2); eGFR > 90 ML/MIN
--- NOTE | 2018-12-17 06:15 | NUR ---
Patient in room [facility]. I have received report from MADHAVI Clifford and had the opportunity to ask questions and assume patient care.
--- NOTE | 2018-12-17 06:32 | NUR ---
Problems reprioritized. Patient report given, questions answered & plan of care reviewed with MADHAVI Toussaint. Addendum: 12/17/18 at 0632 by Venessa Al RN Amended: Links added.
[2018-12-17] MEDS: predniSONE 5mg tablet PO SCH (07:55)
[2018-12-17] MEDS: lactobacillus rhamnosus 10,000 MMU CELLS/CAPSULE PO SCH ×2 (07:56→20:24)
[2018-12-17] MEDS: metoprolol tartrate 25mg tablet PO SCH ×2 (07:56→20:24)
[2018-12-17] MEDS: pantoprazole 40mg Tablet.DR PO SCH ×2 (07:56→20:24)
[2018-12-17] MEDS: aspirin 81mg tab.chew PO SCH (07:56)
[2018-12-17] MEDS: diatr meglu/diatrizoate 30ml oral sol.-(3 dose) bottle PO SCH ×2 (07:57→10:54)
[2018-12-17] MEDS: metroNIDAZOLE-Flagyl 500mg/NS 100 ML IV SCH ×3 (07:57→23:29)
[2018-12-17] MEDS: oxyCODONE IR 5mg (immed. release) tablet PO SCH ×3 (07:57→23:30)
[2018-12-17] MEDS: tamsulosin 0.4mg capsule PO SCH (07:57)
[2018-12-17] MEDS: docusate sod 100mg capsule PO SCH ×2 (07:57→20:00)
[2018-12-17] MEDS: heparin, porcine 5000 units/ml vial SQ SCH ×2 (07:58→20:24)
[2018-12-17] MEDS ORDERED: bisacodyl 10mg suppository rectal RC SCH (08:00)
[2018-12-17] MEDS: CefTRIAXone/D5W-Rocephin 1gm 50 ML IV SCH (09:53)
[2018-12-17] MEDS ORDERED: iohexol 300mg/ml 100ml inj. ONE (10:56)
[2018-12-17] MEDS: normal saline 1000ml 1,000 ML IV SCH (10:57)
[2018-12-17 11:00] VITALS: BP 115/64
[2018-12-17] MEDS: lactose-reduced food (Ensure Enlive) - 237ml bottle PO SCH ×2 (13:00→18:45)
[2018-12-17] MEDS: azithromycin 250mg tablet PO SCH (16:01)
--- NOTE | 2018-12-17 18:15 | NUR ---
Problems reprioritized. Patient report given, questions answered & plan of care reviewed with MADHAVI Mathew.
--- NOTE | 2018-12-17 18:41 | NUR ---
Received report from Breana HENDRICKSON pt is resting on 2.5L of o2 via NC sitter at bedside.
[2018-12-17 19:00] VITALS: BP 117/63
[2018-12-17] MEDS: risperiDONE 2mg tablet PO SCH (20:24)
[2018-12-17] MEDS: insulin glargine (Lantus) pen - multi-dose SQ SCH (21:00)
[2018-12-17 21:04] VITALS: BP 128/63
[2018-12-18 00:22] VITALS: BP 137/68
[2018-12-18] MEDS: HYDROcodone/acetaminophen 5mg/325mg tablet PO PRN (02:43)
[2018-12-18 05:41] LABS: ALANINE AMINOTRANSFERASE 18 U/L (12-78); ALBUMIN 2.2 G/DL (3.4-5.0); ALBUMIN/GLOBULIN RATIO 0.7 (1.1-1.5); ALKALINE PHOSPHATASE 56 IU/L (46-116); ANION GAP 9 (8-16); ASPARTATE AMINO TRANSFERASE 10 U/L (10-37); BILIRUBIN,TOTAL 0.4 MG/DL (0.1-1.0); BLOOD UREA NITROGEN 17 MG/DL (7-18); BUN/CREATININE RATIO 32.1 (5.4-32.0); CALCIUM 8.1 MG/DL (8.5-10.1); CHLORIDE 105 MMOL/L (99-107); CREATININE 0.53 MG/DL (0.60-1.10); GLUCOSE 102 MG/DL (70-104); MAGNESIUM 1.8 MG/DL (1.5-2.4); PHOSPHORUS 3.1 MG/DL (2.3-4.5); POTASSIUM 3.4 MMOL/L (3.5-5.1); SODIUM 140 MMOL/L (135-145); TOTAL CARBON DIOXIDE 26.2 MMOL/L (24-32); TOTAL PROTEIN 5.2 G/DL (6.4-8.2); eGFR > 90 ML/MIN
--- NOTE | 2018-12-18 06:25 | NUR ---
Patient in room [facility]. I have received report from MADHAVI Mathew and had the opportunity to ask questions and assume patient care.
[2018-12-18 06:30] VITALS: BP 138/73
--- NOTE | 2018-12-18 06:30 | NUR ---
Pt refuses orthostatic VS check
--- NOTE | 2018-12-18 06:36 | NUR ---
Problems reprioritized. Patient report given, questions answered & plan of care reviewed with Sweetie RN.
[2018-12-18 07:16] LABS: BASOPHILS % (AUTO) 0.4 % (0-1); EOSINOPHILS # (AUTO) 0.2 X10'3 (0-0.9); EOSINOPHILS % (AUTO) 1.5 % (0-6); HEMATOCRIT 34.2 % (42.0-52.0); HEMOGLOBIN 11.8 g/dl (14.0-17.9); LYMPHOCYTES # (AUTO) 0.8 X10'3 (1.1-4.8); LYMPHOCYTES % (AUTO) 7.1 % (21-51); MEAN CORPUSCULAR HEMOGLOBIN 31.1 PG (27.0-31.0); MEAN CORPUSCULAR HGB CONC 34.4 g/dL (33.0-36.5); MEAN CORPUSCULAR VOLUME 90.4 FL (78-98); MEAN PLATELET VOLUME 7.9 FL (7.4-10.4); MONOCYTES # (AUTO) 1.3 X10'3 (0-0.9); MONOCYTES % (AUTO) 12.3 % (2-12); NEUTROPHILS # (AUTO) 8.6 X10'3 (1.8-7.7); NEUTROPHILS % (AUTO) 78.7 % (42-75); PLATELET COUNT 315 X10'3 (140-440); RED BLOOD COUNT 3.79 X10'6 (4.70-6.10); RED CELL DISTRIBUTION WIDTH 14.8 % (11.5-14.5)
[2018-12-18] MEDS: lactulose 20gm/30ml cup PO SCH ×2 (07:19→20:00)
[2018-12-18] MEDS: docusate sod 100mg capsule PO SCH ×2 (07:19→20:00)
[2018-12-18] MEDS: aspirin 81mg tab.chew PO SCH (08:00)
[2018-12-18] MEDS: CefTRIAXone/D5W-Rocephin 1gm 50 ML IV SCH (08:48)
[2018-12-18] MEDS: heparin, porcine 5000 units/ml vial SQ SCH ×2 (08:50→20:17)
[2018-12-18] MEDS: azithromycin 250mg tablet PO SCH (08:51)
[2018-12-18] MEDS: pantoprazole 40mg Tablet.DR PO SCH ×2 (08:51→20:15)
[2018-12-18] MEDS: tamsulosin 0.4mg capsule PO SCH (08:51)
[2018-12-18] MEDS: lactobacillus rhamnosus 10,000 MMU CELLS/CAPSULE PO SCH ×2 (08:51→20:15)
[2018-12-18] MEDS: oxyCODONE IR 5mg (immed. release) tablet PO SCH ×3 (08:53→23:43)
[2018-12-18] MEDS: metoprolol tartrate 25mg tablet PO SCH ×2 (08:53→20:15)
[2018-12-18] MEDS: predniSONE 5mg tablet PO SCH (08:53)
[2018-12-18] MEDS: lactose-reduced food (Ensure Enlive) - 237ml bottle PO SCH ×3 (08:55→18:37)
[2018-12-18] MEDS ORDERED: magnesium 2GM in 50ml NS 50 ML IV PRN (09:25)
[2018-12-18] MEDS ORDERED: magnesium 4gm in 100ml NS 100 ML IV PRN (09:25)
[2018-12-18] MEDS ORDERED: potassium CL 10mEq/100ml bag 100 ML IV PRN (09:25)
[2018-12-18] MEDS ORDERED: potassium Cl 20 mEq SR tablet PO PRN ×2 (09:25)
[2018-12-18] MEDS ORDERED: magnesium Cl slow-release 64mg tablet PO PRN (09:25)
[2018-12-18] MEDS: metroNIDAZOLE-Flagyl 500mg/NS 100 ML IV SCH ×3 (09:35→23:43)
[2018-12-18 11:30] VITALS: BP 146/78
--- NOTE | 2018-12-18 13:18 | NUR ---
Pt refuses any further K+ PO 2/2 caused him nausea. Pt also refuses K+ IV. notified.
[2018-12-18] MEDS: normal saline 1000ml 1,000 ML IV SCH (14:13)
--- NOTE | 2018-12-18 18:05 | NUR ---
Problems reprioritized. Patient report given, questions answered & plan of care reviewed with MADHAVI Mathew.
--- NOTE | 2018-12-18 18:26 | NUR ---
Received report from Sweetie HENDRICKSON pt is awake on RA sitter at bedside, finished up with dinner in no apparent distress, call light and items of freq use within reach.
[2018-12-18 19:15] VITALS: BP 124/63
[2018-12-18] MEDS: risperiDONE 2mg tablet PO SCH (20:20)
[2018-12-18] MEDS: insulin glargine (Lantus) pen - multi-dose SQ SCH (20:57)
[2018-12-19 00:34] VITALS: BP 125/65
[2018-12-19] MEDS ORDERED: Melatonin 3mg tablet PO PRN (00:55)
--- NOTE | 2018-12-19 01:20 | NUR ---
Primary RN requested that I give Melatonin while on lunch. Entered patient's room to provide Melatonin and patient states, "I don't want it. It doesn't work for me. It works for my children but it keeps me awake." I stated that this is what is available and it may be worth trying again. Patient states "no, I will just stay this way and see if I fall asleep." Notified primary RN.
--- NOTE | 2018-12-19 02:10 | NUR ---
pt stated 10/18 chest pain pt states it felt like a pressure pain notified Dr. Simons he ordered serial troponins and to continue to monitor. pts VS: B/P:152/74, HR:74, R:18, 94% on 2L of O2
[2018-12-19 03:01] LABS: BASOPHILS % (AUTO) 0.5 % (0-1); EOSINOPHILS # (AUTO) 0.3 X10'3 (0-0.9); EOSINOPHILS % (AUTO) 3.4 % (0-6); HEMOGLOBIN 12.6 g/dl (14.0-17.9); LYMPHOCYTES # (AUTO) 0.9 X10'3 (1.1-4.8); LYMPHOCYTES % (AUTO) 10.6 % (21-51); MEAN CORPUSCULAR HEMOGLOBIN 30.7 PG (27.0-31.0); MEAN CORPUSCULAR HGB CONC 33.9 g/dL (33.0-36.5); MEAN CORPUSCULAR VOLUME 90.7 FL (78-98); MEAN PLATELET VOLUME 7.4 FL (7.4-10.4); MONOCYTES # (AUTO) 1.2 X10'3 (0-0.9); MONOCYTES % (AUTO) 13.3 % (2-12); NEUTROPHILS # (AUTO) 6.3 X10'3 (1.8-7.7); NEUTROPHILS % (AUTO) 72.2 % (42-75); PLATELET COUNT 307 X10'3 (140-440); RED BLOOD COUNT 4.08 X10'6 (4.70-6.10); RED CELL DISTRIBUTION WIDTH 14.3 % (11.5-14.5); WHITE BLOOD COUNT 8.7 X10'3 (4.5-11.0)
[2018-12-19] MEDS: HYDROcodone/acetaminophen 5mg/325mg tablet PO PRN (05:44)
--- NOTE | 2018-12-19 06:10 | NUR ---
Patient in room [facility]. I have received report from MADHAVI Mathew and had the opportunity to ask questions and assume patient care.
[2018-12-19 06:30] VITALS: BP 112/69
--- NOTE | 2018-12-19 06:35 | NUR ---
Problems reprioritized. Patient report given, questions answered & plan of care reviewed with Sweetie RN.
[2018-12-19 06:42] LABS: ALANINE AMINOTRANSFERASE 18 U/L (12-78); ALBUMIN 2.4 G/DL (3.4-5.0); ALBUMIN/GLOBULIN RATIO 0.8 (1.1-1.5); ALKALINE PHOSPHATASE 54 IU/L (46-116); ANION GAP 8 (8-16); ASPARTATE AMINO TRANSFERASE 20 U/L (10-37); BILIRUBIN,TOTAL 0.5 MG/DL (0.1-1.0); BLOOD UREA NITROGEN 8 MG/DL (7-18); CALCIUM 8.4 MG/DL (8.5-10.1); CHLORIDE 103 MMOL/L (99-107); CREATININE 0.42 MG/DL (0.60-1.10); GLUCOSE 93 MG/DL (70-104); POTASSIUM 3.6 MMOL/L (3.5-5.1); SODIUM 138 MMOL/L (135-145); TOTAL CARBON DIOXIDE 27.1 MMOL/L (24-32); TOTAL PROTEIN 5.4 G/DL (6.4-8.2); eGFR > 90 ML/MIN
[2018-12-19 06:47] LABS: MAGNESIUM 1.7 MG/DL (1.5-2.4); PHOSPHORUS 3.1 MG/DL (2.3-4.5)
[2018-12-19] MEDS: lactulose 20gm/30ml cup PO SCH ×2 (06:53→19:40)
[2018-12-19] MEDS: docusate sod 100mg capsule PO SCH ×2 (06:53→19:40)
[2018-12-19] MEDS: lactose-reduced food (Ensure Enlive) - 237ml bottle PO SCH ×3 (08:00→18:45)
[2018-12-19] MEDS: heparin, porcine 5000 units/ml vial SQ SCH ×3 (08:00→19:52)
[2018-12-19] MEDS: metroNIDAZOLE-Flagyl 500mg/NS 100 ML IV SCH ×2 (08:00→08:41)
[2018-12-19] MEDS: CefTRIAXone/D5W-Rocephin 1gm 50 ML IV SCH (08:12)
[2018-12-19] MEDS: lactobacillus rhamnosus 10,000 MMU CELLS/CAPSULE PO SCH ×2 (08:13→19:51)
[2018-12-19] MEDS: pantoprazole 40mg Tablet.DR PO SCH ×2 (08:13→19:51)
[2018-12-19] MEDS: tamsulosin 0.4mg capsule PO SCH (08:14)
[2018-12-19] MEDS: azithromycin 250mg tablet PO SCH (08:14)
[2018-12-19] MEDS: metoprolol tartrate 25mg tablet PO SCH ×2 (08:14→19:51)
[2018-12-19] MEDS: predniSONE 5mg tablet PO SCH (08:14)
[2018-12-19] MEDS: aspirin 81mg tab.chew PO SCH (08:14)
[2018-12-19] MEDS: oxyCODONE IR 5mg (immed. release) tablet PO SCH ×3 (08:15→23:15)
[2018-12-19 11:30] VITALS: BP 126/72
[2018-12-19] MEDS: nystatin 500,000 unit/5ML UD oral suspension PO SCH ×2 (12:49→19:52)
--- NOTE | 2018-12-19 17:13 | NUR ---
reassessment: Pt PO 50-75% prior meals now refusing today. On suicide hold and echocardiogram today as well. 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 [facility] 12/19. Will continue to monitor. Recommendations: 1) Continue CHO controlled diet; encourage PO 2) Routine bowel care 3) Wt per rx Addendum: 12/19/18 at [address] Amended: Links added. Addendum: 12/19/18 at [address] reassessment: Pt PO 50-75% prior meals now refusing today. On suicide hold and echocardiogram today as well. 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 [facility] 12/19. Will continue to monitor. Recommendations: 1) Continue CHO controlled diet; encourage PO 2) Routine bowel care 3) monitor for ONS needs 4) Wt per rx
[2018-12-19 18:00] VITALS: BP 138/77
[2018-12-19] MEDS: normal saline 1000ml 1,000 ML IV SCH (18:01)
--- NOTE | 2018-12-19 18:15 | NUR ---
Problems reprioritized. Patient report given, questions answered & plan of care reviewed with MADHAVI Clifford.
--- NOTE | 2018-12-19 19:38 | NUR ---
Patient in room [facility]. I have received report from MADHAVI Pitt and had the opportunity to ask questions and assume patient care. Addendum: 12/19/18 at 1939 by Venessa Al RN Amended: Links added.
[2018-12-19] MEDS: metroNIDAZOLE 500mg tablet PO SCH (19:51)
[2018-12-19] MEDS: risperiDONE 2mg tablet PO SCH (19:51)
[2018-12-19] MEDS: insulin glargine (Lantus) pen - multi-dose SQ SCH (20:55)
[2018-12-20] VITALS: BP 132/67
--- NOTE | 2018-12-20 06:05 | NUR ---
Patient in room [facility]. I have received report from MADHAVI Clifford and had the opportunity to ask questions and assume patient care.
--- NOTE | 2018-12-20 06:16 | NUR ---
Problems reprioritized. Patient report given, questions answered & plan of care reviewed with MADHAVI Pitt. Addendum: 12/20/18 at 0617 by Venessa Al RN Amended: Links added.
[2018-12-20 06:30] VITALS: BP 125/66
[2018-12-20] MEDS: lactulose 20gm/30ml cup PO SCH ×2 (06:41→20:00)
[2018-12-20] MEDS: docusate sod 100mg capsule PO SCH ×2 (06:41→20:00)
[2018-12-20 06:49] LABS: PHOSPHORUS 3.8 MG/DL (2.3-4.5); POTASSIUM 4.2 MMOL/L (3.5-5.1)
[2018-12-20] MEDS: heparin, porcine 5000 units/ml vial SQ SCH ×2 (08:00→20:00)
[2018-12-20] MEDS: lactose-reduced food (Ensure Enlive) - 237ml bottle PO SCH ×3 (08:00→18:03)
[2018-12-20] MEDS: lactobacillus rhamnosus 10,000 MMU CELLS/CAPSULE PO SCH ×2 (08:01→20:17)
[2018-12-20] MEDS: metroNIDAZOLE 500mg tablet PO SCH ×2 (08:01→20:17)
[2018-12-20] MEDS: predniSONE 5mg tablet PO SCH (08:01)
[2018-12-20] MEDS: metoprolol tartrate 25mg tablet PO SCH ×2 (08:01→20:17)
[2018-12-20] MEDS: tamsulosin 0.4mg capsule PO SCH (08:01)
[2018-12-20] MEDS: aspirin 81mg tab.chew PO SCH (08:01)
[2018-12-20] MEDS: pantoprazole 40mg Tablet.DR PO SCH ×2 (08:01→20:16)
[2018-12-20] MEDS: oxyCODONE IR 5mg (immed. release) tablet PO SCH ×2 (08:02→16:22)
[2018-12-20] MEDS: nystatin 500,000 unit/5ML UD oral suspension PO SCH ×3 (08:04→20:17)
[2018-12-20] MEDS: CefTRIAXone/D5W-Rocephin 1gm 50 ML IV SCH (08:04)
[2018-12-20 11:30] VITALS: BP 105/54
[2018-12-20] MEDS: normal saline 1000ml 1,000 ML IV SCH (17:18)
[2018-12-20 18:00] VITALS: BP 144/76
--- NOTE | 2018-12-20 18:15 | NUR ---
Problems reprioritized. Patient report given, questions answered & plan of care reviewed with MADHAVI Clifford.
[2018-12-20] MEDS: risperiDONE 2mg tablet PO SCH (20:16)
[2018-12-20] MEDS: insulin glargine (Lantus) pen - multi-dose SQ SCH (21:00)
[2018-12-21] VITALS: BP 114/63
[2018-12-21] MEDS: oxyCODONE IR 5mg (immed. release) tablet PO SCH ×4 (00:10→23:38)
[2018-12-21 05:56] LABS: MAGNESIUM 1.8 MG/DL (1.5-2.4); PHOSPHORUS 3.4 MG/DL (2.3-4.5); POTASSIUM 3.8 MMOL/L (3.5-5.1)
--- NOTE | 2018-12-21 06:19 | NUR ---
Problems reprioritized. Patient report given, questions answered & plan of care reviewed with MADHAVI Wu. Addendum: 12/21/18 at 0619 by Venessa Al RN Amended: Links added.
[2018-12-21 07:00] VITALS: BP 138/66
[2018-12-21] MEDS: nystatin 500,000 unit/5ML UD oral suspension PO SCH ×3 (07:58→21:13)
[2018-12-21] MEDS: duloxetine 20mg capsule.DR PO SCH (07:58)
[2018-12-21] MEDS: lactulose 20gm/30ml cup PO SCH ×3 (07:58→19:10)
[2018-12-21] MEDS: metoprolol tartrate 25mg tablet PO SCH ×2 (07:58→21:14)
[2018-12-21] MEDS: CefTRIAXone/D5W-Rocephin 1gm 50 ML IV SCH (07:58)
[2018-12-21] MEDS: lactobacillus rhamnosus 10,000 MMU CELLS/CAPSULE PO SCH ×2 (07:59→21:13)
[2018-12-21] MEDS: pantoprazole 40mg Tablet.DR PO SCH ×2 (07:59→21:14)
[2018-12-21] MEDS: docusate sod 100mg capsule PO SCH ×2 (07:59→19:10)
[2018-12-21] MEDS: tamsulosin 0.4mg capsule PO SCH (07:59)
[2018-12-21] MEDS: predniSONE 5mg tablet PO SCH (07:59)
[2018-12-21] MEDS: metroNIDAZOLE 500mg tablet PO SCH (07:59)
[2018-12-21] MEDS: aspirin 81mg tab.chew PO SCH (07:59)
[2018-12-21] MEDS: heparin, porcine 5000 units/ml vial SQ SCH ×2 (08:00→20:00)
[2018-12-21] MEDS: lactose-reduced food (Ensure Enlive) - 237ml bottle PO SCH ×3 (08:03→18:09)
--- NOTE | 2018-12-21 09:50 | NUR ---
Reassessment: PO intake seems to be improving with 50% average of meals with 100% PO intake of ONS with the exception of 25% PO intake of ONS x 2. [facility] 12/20 documented as diarrhea, likely secondary to bowel care as pt receiving routine Colace and Lactulose. N/V and constipation has resolved and pt medically cleared per MD notes. Will continue to follow. Recommendations: 1) Continue CHO controlled diet; encourage PO 2) Ensure Enlive TID 3) Routine bowel care 4) monitor for ONS needs 5) Wt per rx Addendum: 12/21/18 at [address] Amended: Links added.
[2018-12-21 11:00] VITALS: BP 111/58
[2018-12-21 18:00] VITALS: BP 103/62
[2018-12-21] MEDS: normal saline 1000ml 1,000 ML IV SCH (18:01)
--- NOTE | 2018-12-21 18:20 | NUR ---
Problems reprioritized. Patient report given, questions answered & plan of care reviewed with BECKI HENDRICKSON.
[2018-12-21] MEDS: insulin glargine (Lantus) pen - multi-dose SQ SCH (21:00)
[2018-12-21] MEDS: risperiDONE 2mg tablet PO SCH (21:14)
--- NOTE | 2018-12-21 22:32 | NUR ---
Patient in room [facility]. I have received report from MADHAVI Wu and had the opportunity to ask questions and assume patient care. Addendum: 12/21/18 at 2235 by Venessa Al RN Amended: Links added.
[2018-12-22 00:18] VITALS: BP 122/65
[2018-12-22 05:36] LABS: MAGNESIUM 1.9 MG/DL (1.5-2.4); PHOSPHORUS 3.3 MG/DL (2.3-4.5)
--- NOTE | 2018-12-22 06:38 | NUR ---
Problems reprioritized. Patient report given, questions answered & plan of care reviewed with MADHAVI Brito. Addendum: 12/22/18 at 0639 by Venessa Al RN Amended: Links added.
--- NOTE | 2018-12-22 07:18 | NUR ---
Patient in room [facility]. I have received report from Venessa HENDRICKSON and had the opportunity to ask questions and assume patient care.
[2018-12-22 07:27] VITALS: BP 96/49
[2018-12-22] MEDS: lactose-reduced food (Ensure Enlive) - 237ml bottle PO SCH ×3 (08:00→18:56)
[2018-12-22] MEDS: docusate sod 100mg capsule PO SCH ×2 (08:00→20:00)
[2018-12-22] MEDS: metoprolol tartrate 25mg tablet PO SCH ×2 (08:00→20:12)
[2018-12-22] MEDS: lactulose 20gm/30ml cup PO SCH ×2 (08:00→20:00)
[2018-12-22] MEDS: tamsulosin 0.4mg capsule PO SCH (09:16)
[2018-12-22] MEDS: pantoprazole 40mg Tablet.DR PO SCH ×2 (09:16→20:12)
[2018-12-22] MEDS: predniSONE 5mg tablet PO SCH (09:16)
[2018-12-22] MEDS: aspirin 81mg tab.chew PO SCH (09:17)
[2018-12-22] MEDS: lactobacillus rhamnosus 10,000 MMU CELLS/CAPSULE PO SCH ×2 (09:17→20:12)
[2018-12-22] MEDS: oxyCODONE IR 5mg (immed. release) tablet PO SCH ×2 (09:18→16:37)
[2018-12-22] MEDS: duloxetine 20mg capsule.DR PO SCH (09:18)
[2018-12-22] MEDS: heparin, porcine 5000 units/ml vial SQ SCH ×2 (09:20→20:12)
[2018-12-22] MEDS: nystatin 500,000 unit/5ML UD oral suspension PO SCH ×3 (09:20→21:59)
[2018-12-22 11:00] VITALS: BP 115/68
--- NOTE | 2018-12-22 18:18 | NUR ---
Patient in room [facility]. I have received report from MADHAVI Brito and had the opportunity to ask questions and assume patient care. Addendum: 12/22/18 at 1818 by Ev Linton RN Amended: Links added.
--- NOTE | 2018-12-22 18:30 | NUR ---
Problems reprioritized. Patient report given, questions answered & plan of care reviewed with Farhana Link RN.
[2018-12-22 20:00] VITALS: BP 116/68
[2018-12-22] MEDS: insulin glargine (Lantus) pen - multi-dose SQ SCH (21:00)
[2018-12-22] MEDS: risperiDONE 2mg tablet PO SCH (21:59)
[2018-12-23 00:09] VITALS: BP 105/65
[2018-12-23] MEDS: oxyCODONE IR 5mg (immed. release) tablet PO SCH ×4 (00:21→23:52)
[2018-12-23 06:11] LABS: MAGNESIUM 1.9 MG/DL (1.5-2.4); POTASSIUM 4.2 MMOL/L (3.5-5.1)
--- NOTE | 2018-12-23 06:33 | NUR ---
Problems reprioritized. Patient report given, questions answered & plan of care reviewed with MADHAVI Brito.
[2018-12-23 07:33] VITALS: BP 125/69
[2018-12-23] MEDS: docusate sod 100mg capsule PO SCH ×2 (08:00→20:00)
[2018-12-23] MEDS: lactulose 20gm/30ml cup PO SCH ×2 (08:00→20:00)
[2018-12-23] MEDS: lactose-reduced food (Ensure Enlive) - 237ml bottle PO SCH ×3 (08:00→18:00)
[2018-12-23] MEDS: pantoprazole 40mg Tablet.DR PO SCH ×2 (09:21→20:25)
[2018-12-23] MEDS: lactobacillus rhamnosus 10,000 MMU CELLS/CAPSULE PO SCH ×2 (09:21→20:25)
[2018-12-23] MEDS: tamsulosin 0.4mg capsule PO SCH (09:22)
[2018-12-23] MEDS: metoprolol tartrate 25mg tablet PO SCH ×2 (09:22→20:27)
[2018-12-23] MEDS: aspirin 81mg tab.chew PO SCH (09:22)
[2018-12-23] MEDS: duloxetine 20mg capsule.DR PO SCH (09:23)
[2018-12-23] MEDS: nystatin 500,000 unit/5ML UD oral suspension PO SCH ×3 (09:24→20:28)
[2018-12-23] MEDS: predniSONE 5mg tablet PO SCH (09:24)
[2018-12-23] MEDS: heparin, porcine 5000 units/ml vial SQ SCH ×2 (09:24→20:28)
[2018-12-23 11:00] VITALS: BP 126/69
--- NOTE | 2018-12-23 18:30 | NUR ---
Problems reprioritized. Patient report given, questions answered & plan of care reviewed with Leila HENDRICKSON.
[2018-12-23 20:00] VITALS: BP 125/72
[2018-12-23] MEDS: risperiDONE 2mg tablet PO SCH (20:26)
[2018-12-23] MEDS: insulin glargine (Lantus) pen - multi-dose SQ SCH (20:35)
[2018-12-24] VITALS: BP 119/65
[2018-12-24] MEDS: HYDROcodone/acetaminophen 5mg/325mg tablet PO PRN (03:38)
--- NOTE | 2018-12-24 06:30 | NUR ---
Patient report given, questions answered & plan of care reviewed with KARLIE HENDRICKSON.
[2018-12-24 08:00] VITALS: BP_SYST 123; BP_SYST 133; BP_DIAS 71
[2018-12-24] MEDS: lactulose 20gm/30ml cup PO SCH ×2 (08:00→20:00)
[2018-12-24] MEDS: docusate sod 100mg capsule PO SCH ×2 (08:00→20:00)
[2018-12-24] MEDS: aspirin 81mg tab.chew PO SCH (08:00)
[2018-12-24] MEDS: pantoprazole 40mg Tablet.DR PO SCH ×2 (08:36→21:58)
[2018-12-24] MEDS: lactobacillus rhamnosus 10,000 MMU CELLS/CAPSULE PO SCH ×2 (08:37→21:57)
[2018-12-24] MEDS: predniSONE 5mg tablet PO SCH (08:37)
[2018-12-24] MEDS: duloxetine 20mg capsule.DR PO SCH (08:38)
[2018-12-24] MEDS: metoprolol tartrate 25mg tablet PO SCH ×2 (08:38→21:59)
[2018-12-24] MEDS: nystatin 500,000 unit/5ML UD oral suspension PO SCH ×3 (08:38→21:57)
[2018-12-24] MEDS: tamsulosin 0.4mg capsule PO SCH (08:38)
[2018-12-24] MEDS: oxyCODONE IR 5mg (immed. release) tablet PO SCH ×2 (08:38→16:26)
[2018-12-24] MEDS: lactose-reduced food (Ensure Enlive) - 237ml bottle PO SCH ×3 (08:39→18:07)
[2018-12-24] MEDS: heparin, porcine 5000 units/ml vial SQ SCH ×2 (08:39→20:00)
[2018-12-24 12:00] VITALS: BP 117/64
--- NOTE | 2018-12-24 12:16 | NUR ---
SPOKE TO PT. THEY DC'D PT ORDER R/T REFUSALS FROM PT. PT. DID NOT REFUSE AM AMBULATION WITH NURSING BUT WAS ONLY ABLE TO WALK 25FT WITH FWW RELATED TO DECON. AND WEAKNESS. PT AND MD MADE AWARE. NEW ORDER FOR PT EVAL AND TX.
[2018-12-24 18:00] VITALS: BP 106/66
--- NOTE | 2018-12-24 18:30 | NUR ---
Patient in room [facility]. I have received report from Argelia HENDRICKSON and had the opportunity to ask questions and assume patient care. Patient finishing dinner with sitter at bedside. Will continue to monitor.
--- NOTE | 2018-12-24 18:31 | NUR ---
SPOKE WITH SS. PLANS TO GO TO [facility]. WILL BE DISCHARGED WITH F/C. PT. IS ABLE TO WALK AND PT. WOULD BE BENEFICIAL BUT PT ALSO USES ELECTRIC W/C AT HOME. [facility] WITH PT ORDERED FOR PT. [facility] LEASE FOR PT. IN HIS HARD CHART. PHARMACY SALES ASSISTANT SUPPOSED TO COME FROM [facility] TO REVIEW LEASE WITH PT. GAVE REPORT TO FARZANA HENDRICKSON.
[2018-12-24] MEDS: insulin glargine (Lantus) pen - multi-dose SQ SCH (21:00)
[2018-12-24] MEDS: risperiDONE 2mg tablet PO SCH (21:58)
[2018-12-25] VITALS: BP 113/61
[2018-12-25] MEDS: oxyCODONE IR 5mg (immed. release) tablet PO SCH ×2 (00:19→08:38)
[2018-12-25 07:00] VITALS: BP 136/80
--- NOTE | 2018-12-25 07:20 | NUR ---
Problems reprioritized. Patient report given, questions answered & plan of care reviewed with Mayra HENDRICKSON.
[2018-12-25] MEDS: lactulose 20gm/30ml cup PO SCH (08:00)
[2018-12-25] MEDS: heparin, porcine 5000 units/ml vial SQ SCH (08:00)
[2018-12-25] MEDS: predniSONE 5mg tablet PO SCH (08:38)
[2018-12-25] MEDS: tamsulosin 0.4mg capsule PO SCH (08:38)
[2018-12-25] MEDS: lactobacillus rhamnosus 10,000 MMU CELLS/CAPSULE PO SCH (08:38)
[2018-12-25] MEDS: aspirin 81mg tab.chew PO SCH (08:38)
[2018-12-25 08:39] VITALS: BP_SYST 136
[2018-12-25] MEDS: docusate sod 100mg capsule PO SCH (08:39)
[2018-12-25] MEDS: pantoprazole 40mg Tablet.DR PO SCH (08:39)
[2018-12-25] MEDS: metoprolol tartrate 25mg tablet PO SCH (08:39)
[2018-12-25] MEDS: duloxetine 20mg capsule.DR PO SCH (08:39)
[2018-12-25] MEDS: nystatin 500,000 unit/5ML UD oral suspension PO SCH (08:40)
[2018-12-25] MEDS: lactose-reduced food (Ensure Enlive) - 237ml bottle PO SCH (08:40)
--- NOTE | 2018-12-25 14:59 | NUR ---
patient seen by Dr Ho, and case management. Is for DC. All DC instructions given to patient and sister .Meds called into [facility] on [facility]. Dc home with catheter Patient is going to [facility]. family will stay with patient until patient feels more comfortable. Dc home via private car 1500hrs.
== END 2018-12-25 14:25 | disposition home health service (06) | DRG 193 ==
LOC: ER 19:36 → OBSVTOIN 22:08 → SUR 3N 22:08
PROVIDERS: ADMIT Internal Medicine; ATTEND Internal Medicine
DX: J18.9 Pneumonia, unspecified organism (principal); R53.2 Functional quadriplegia; N39.0 Urinary tract infection, site not specified; R45.851 Suicidal ideations; M33.90 Dermatopolymyositis, unspecified, organ involvement unspecified; N32.89 Other specified disorders of bladder; I10 Essential (primary) hypertension; K21.9 Gastro-esophageal reflux disease without esophagitis; F32.9 Major depressive disorder, single episode, unspecified; R53.1 Weakness; G89.29 Other chronic pain; M54.9 Dorsalgia, unspecified; N40.0 Benign prostatic hyperplasia without lower urinary tract symptoms; E83.39 Other disorders of phosphorus metabolism; E11.649 Type 2 diabetes mellitus with hypoglycemia without coma; K59.00 Constipation, unspecified; I25.10 Atherosclerotic heart disease of native coronary artery without angina pectoris; Z90.49 Acquired absence of other specified parts of digestive tract; I25.2 Old myocardial infarction; Z95.5 Presence of coronary angioplasty implant and graft; Z87.891 Personal history of nicotine dependence
CPT/HCPCS: 36415; 71045; 71260; 74018; 74176; 74177; 76775; 80048; 80053; 81001; 82271; 82550; 82948; 83036; 83605; 83735; 83880; 84100; 84132; 84145; 84153; 84154; 84484; 85025; 87040; 87081; 87088; 93005; 97110; 97116; 97161; 97164; 97530; 97535; G0378; J0696; J1644; J1815; J2405; J2765; J3490; J7030; J7512; Q9963; Q9967

== ENCOUNTER 2018-12-28 14:36 | Observation (INO) | payer MEDICARE, OTHER ==
[~2018-12-28] VITALS: Ht 167.6 cm; Wt 67.0 kg
[~2018-12-28 14:36] MED LIST changes: -BISA-155 PO; +BISA10SU11 RC; +COL100C PO; +LACT1CAP26 PO; -MAGN296S50 PO; +MAGN400O6 PO; +PRED5TAB PO
[2018-12-28] MEDS ORDERED: normal saline 1000ML IV soln IVB ONE (15:00)
[2018-12-28 15:17] LABS: BASOPHILS # (AUTO) 0.1 X10'3 (0-0.2); BASOPHILS % (AUTO) 0.6 % (0-1); EOSINOPHILS # (AUTO) 0.3 X10'3 (0-0.9); HEMATOCRIT 43.6 % (42.0-52.0); HEMOGLOBIN 14.5 g/dl (14.0-17.9); LYMPHOCYTES # (AUTO) 1.4 X10'3 (1.1-4.8); LYMPHOCYTES % (AUTO) 13.6 % (21-51); MEAN CORPUSCULAR HEMOGLOBIN 30.3 PG (27.0-31.0); MEAN CORPUSCULAR HGB CONC 33.2 g/dL (33.0-36.5); MEAN CORPUSCULAR VOLUME 91.2 FL (78-98); MEAN PLATELET VOLUME 6.7 FL (7.4-10.4); MONOCYTES # (AUTO) 1.4 X10'3 (0-0.9); NEUTROPHILS # (AUTO) 6.9 X10'3 (1.8-7.7); NEUTROPHILS % (AUTO) 68.8 % (42-75); PLATELET COUNT 358 X10'3 (140-440); RED BLOOD COUNT 4.78 X10'6 (4.70-6.10); WHITE BLOOD COUNT 10.1 X10'3 (4.5-11.0)
[2018-12-28 15:20] LABS: CLARITY,URINE CLOUDY (Clear); COLOR,URINE YELLOW (Yellow); GLUCOSE, URINE NEGATIVE (Neg); KETONES,URINE NEGATIVE (Neg); LEUKOCYTE ESTERASE ,URINE SMALL (Neg); NITRITES, URINE NEGATIVE (Neg); OCCULT BLOOD,URINE LARGE (Neg); PROTEIN,URINE TRACE mg/dl (Neg); UROBILINOGEN,URINE 0.2 E.U/dL (0.2-1.0)
[2018-12-28 15:26] LABS: UA COLLECTION TYPE FOLEY CATH
[2018-12-28 15:27] LABS: MUCUS STRANDS FEW /LPF (Neg); SQUAMOUS EPITHELIAL CELL,UR FEW /LPF (FEW)
[2018-12-28 15:28] LABS: WBC,URINE 0-4 /HPF (0-4)
[2018-12-28 15:29] LABS: AMORPHOUS PHOSPHATES 2+; BACTERIA,URINE 1+ /HPF (Neg); RBC,URINE 50-100 /HPF (0-2)
[2018-12-28 15:34] LABS: ALANINE AMINOTRANSFERASE 34 U/L (12-78); ALBUMIN 2.9 G/DL (3.4-5.0); ALBUMIN/GLOBULIN RATIO 0.9 (1.1-1.5); ALKALINE PHOSPHATASE 76 IU/L (46-116); ANION GAP 6 (8-16); ASPARTATE AMINO TRANSFERASE 16 U/L (10-37); BILIRUBIN,TOTAL 0.3 MG/DL (0.1-1.0); BLOOD UREA NITROGEN 13 MG/DL (7-18); CALCIUM 8.8 MG/DL (8.5-10.1); CHLORIDE 103 MMOL/L (99-107); CREATININE 0.59 MG/DL (0.60-1.10); GLUCOSE 169 MG/DL (70-104); POTASSIUM 4.1 MMOL/L (3.5-5.1); SODIUM 137 MMOL/L (135-145); TOTAL CARBON DIOXIDE 27.6 MMOL/L (24-32); TOTAL PROTEIN 6.2 G/DL (6.4-8.2); eGFR > 90 ML/MIN
[2018-12-28] MEDS ORDERED: dextrose ORAL solution 15 GM/59 ML bottle PO PRN ×2 (16:40)
[2018-12-28] MEDS ORDERED: mag hydrox/Alum hydrox/simeth 30ml oral suspension PO PRN (16:40)
[2018-12-28] MEDS ORDERED: dextrose 50%-water 50ml dispensing syringe IV PRN ×2 (16:40)
[2018-12-28] MEDS ORDERED: acetaminophen 325mg tablet PO PRN (16:40)
[2018-12-28] MEDS ORDERED: glucagon, human recombinant 1mg kit SUBCUT PRN (16:40)
[2018-12-28] MEDS ORDERED: MESSAGE TO PHARMACY PO ONE (16:40)
[2018-12-28] MEDS ORDERED: ondansetron/PF 4mg/2ml inj IV PRN (16:40)
[2018-12-28] MEDS ORDERED: insulin Lispro (HumaLOG) vial - multi-dose SQ SCH (16:40)
[2018-12-28] MEDS ORDERED: magnesium hydroxide 30ml (MOM) UD suspension PO PRN (16:40)
--- NOTE | 2018-12-28 17:54 | NUR ---
Called Ortho to give report on pt for admit. Notified by nurse on floor that they will not receive report until after shift change. CRN notified.
--- NOTE | 2018-12-28 18:45 | NUR ---
Received report from WATCHMAKING TEACHERMADHAVI Cruz. Patient to arrive shortly.
[2018-12-28 19:00] VITALS: BP 144/85
--- NOTE | 2018-12-28 19:00 | NUR ---
Patient arrived to floor from ER on [facility]. Patient A&O, and transferred over into [facility]. Patient rolled to remove all other bedding/clothing underneath him and VS taken. Patients' dela cruz cath leg bag changed out for our drainage bag that hooks onto bed. 350cc med to dark urine emptied. Patients VS= ..97.7,98,16, 144/85, 100% on 2L O2 and denied having any pain at this time. Dinner tray was ordered and accu check revealed BS of 83. Gave 1 apple juice box to patient as he had not had anything while in the ER.
[2018-12-28] MEDS ORDERED: risperiDONE 2mg tablet PO SCH (21:00)
[2018-12-28] MEDS ORDERED: insulin glargine (Lantus) pen - multi-dose SQ SCH (21:00)
[2018-12-28] MEDS: docusate sod 100mg capsule PO SCH (21:48)
[2018-12-28] MEDS: lactobacillus rhamnosus 10,000 MMU CELLS/CAPSULE PO SCH (21:48)
[2018-12-28] MEDS: metoprolol tartrate 25mg tablet PO SCH (21:49)
[2018-12-28] MEDS: nystatin 500,000 unit/5ML UD oral suspension PO SCH (21:49)
[2018-12-28] MEDS: oxyCODONE IR 5mg (immed. release) tablet PO PRN (21:50)
[2018-12-29] MEDS ORDERED: oxyCODONE IR 5mg (immed. release) tablet PO PRN
[2018-12-29 06:00] VITALS: BP 98/45
--- NOTE | 2018-12-29 06:30 | NUR ---
Problems reprioritized. Patient report given, questions answered & plan of care reviewed with Ольга HENDRICKSON.
[2018-12-29] MEDS ORDERED: aspirin 81mg tab.chew PO SCH (08:00)
[2018-12-29] MEDS ORDERED: tamsulosin 0.4mg capsule PO SCH (08:00)
[2018-12-29] MEDS ORDERED: predniSONE 5mg tablet PO SCH (08:00)
[2018-12-29] MEDS ORDERED: glimepiride 1 MG tablet PO SCH (08:00)
[2018-12-29] MEDS: docusate sod 100mg capsule PO SCH (08:06)
[2018-12-29] MEDS: nystatin 500,000 unit/5ML UD oral suspension PO SCH (08:06)
[2018-12-29] MEDS: metoprolol tartrate 25mg tablet PO SCH (08:06)
[2018-12-29] MEDS: lactobacillus rhamnosus 10,000 MMU CELLS/CAPSULE PO SCH (08:06)
[2018-12-29] MEDS ORDERED: NYST1000 PO (09:53)
[2018-12-29 10:00] VITALS: BP 110/64
[2018-12-29] MEDS: oxyCODONE IR 5mg (immed. release) tablet PO PRN (11:08)
--- NOTE | 2018-12-29 11:52 | NUR ---
gave report to employment services director at [place], patient went by [facility] with all belongings, also spoke to the sister and updated her on POC and transfer
== END 2018-12-29 11:20 ==
LOC: ER 14:37 → ORTHO 4S 18:29 → CMPBEDREQ 19:43
PROVIDERS: ADMIT Family Medicine; ATTEND Family Medicine
DX: R62.7 Adult failure to thrive (principal); R53.1 Weakness; E11.9 Type 2 diabetes mellitus without complications; I10 Essential (primary) hypertension; I25.10 Atherosclerotic heart disease of native coronary artery without angina pectoris; M33.13 Other dermatomyositis without myopathy; I25.2 Old myocardial infarction; K21.9 Gastro-esophageal reflux disease without esophagitis; N39.0 Urinary tract infection, site not specified; N40.0 Benign prostatic hyperplasia without lower urinary tract symptoms; Z82.49 Family history of ischemic heart disease and other diseases of the circulatory system; Z79.84 Long term (current) use of oral hypoglycemic drugs; Z79.899 Other long term (current) drug therapy; Z87.891 Personal history of nicotine dependence; Z95.5 Presence of coronary angioplasty implant and graft; F32.9 Major depressive disorder, single episode, unspecified
CPT/HCPCS: 36415; 71045; 80053; 81001; 82948; 85025; 87077; 87081; 87088; 87186; 93005; 99284; G0378; J1815; J7512

== ENCOUNTER 2019-05-27 13:34 | Emergency (ER) | payer MEDICARE, OTHER ==
[~2019-05-27] VITALS: Ht 167.6 cm; Wt 63.6 kg
[~2019-05-27 13:34] MED LIST changes: -BISA10SU11 RC; -FLO0.4C PO; -MAGN400O6 PO; +NYST1000 PO
--- NOTE | 2019-05-27 14:58 | NUR ---
[facility] CALLED FOR TRANSPORT, ETA APPROXIMATELY 1 HOUR.
[2019-05-27 16:19] VITALS: BP 146/87
--- NOTE | 2019-05-27 16:22 | NUR ---
[facility] CALLED, HE IS NEXT IN LINE FOR TRANSPORT.
--- NOTE | 2019-05-27 17:00 | NUR ---
[facility] here to transport patient back to his care facility.
== END 2019-05-27 17:02 ==
LOC: ER 13:36
DX: T83.038A Leakage of other urinary catheter, initial encounter (principal); I10 Essential (primary) hypertension; I25.2 Old myocardial infarction; K21.9 Gastro-esophageal reflux disease without esophagitis; E11.9 Type 2 diabetes mellitus without complications; F32.9 Major depressive disorder, single episode, unspecified; Z95.5 Presence of coronary angioplasty implant and graft; Z98.890 Other specified postprocedural states; Z79.82 Long term (current) use of aspirin; Z79.899 Other long term (current) drug therapy; Y84.6 Urinary catheterization as the cause of abnormal reaction of the patient, or of later complication, without mention of misadventure at the time of the procedure; Y92.89 Other specified places as the place of occurrence of the external cause
CPT/HCPCS: 51702; 99284

== ENCOUNTER 2019-06-03 15:48 | Emergency (ER) | payer MEDICARE ==
[~2019-06-03] VITALS: Ht 167.6 cm; Wt 65.0 kg
[2019-06-03 15:54] VITALS: BP 112/70
== END 2019-06-03 18:06 | disposition home or self-care (01) ==
LOC: ER 15:49
DX: T83.098A Other mechanical complication of other urinary catheter, initial encounter (principal); I10 Essential (primary) hypertension; I25.2 Old myocardial infarction; K21.9 Gastro-esophageal reflux disease without esophagitis; E11.9 Type 2 diabetes mellitus without complications; Z98.890 Other specified postprocedural states; Z95.5 Presence of coronary angioplasty implant and graft; Z79.82 Long term (current) use of aspirin; Z79.899 Other long term (current) drug therapy; Y92.89 Other specified places as the place of occurrence of the external cause
CPT/HCPCS: 51700; 99284